=== PATIENT | male | born 1990 | race Caucasian/White ===

== ENCOUNTER 2018-05-11 03:49 | Emergency (ER) | payer OTHER, SELFPAY ==
[2018-05-11] VITALS (11 sets, daily range): BP systolic 138–147; BP diastolic 83–102; PULSE 16–112; RESP 16–20; TEMP 36.3–37.1; O2SAT 98–100; BMI 22.1
[2018-05-11 04:53] LABS: Absolute Lymphocyte Count 2.04 X10^3/ul (0.83-4.51); Absolute Neutrophil Count 3.5 X10^3/uL (2.0-7.7); Basophil# 0.01 X10^3/uL; Basophil% 0.2 % (0-1); Eosinophil# 0.03 X10^3/uL; Eosinophils% 0.5 % (0-5); Hematocrit 45.2 % (40-54); Hemoglobin 16.1 g/dl (13.0-16.5); Lymphocyte # 2.04 X10^3/ul (4.0); Lymphocyte % 32.8 % (19-41); Mean Corp Hgb Conc 35.6 g/gl (32-36); Mean Corpuscular Hgb 32.6 pg (27.0-32.0); Mean Corpuscular Volume 91.5 fL (80-94); Mean Platelet Vol. 9.9 fl (6.2-12.0); Monocyte# 0.65 X10^3/uL; Monocyte% 10.5 % (0-10); Neutrophil # 3.49 X10^3/uL (2.7-7.7); Platelet Count 273 K/mm3 (150-450); RBC Distribution Width CV 12.9 % (11.6-14.6); RBC Distribution Width SD 42.9 fl (35.1-43.9); Red Blood Count 4.94 M/mm3 (4.6-6.2); White Blood Count 6.2 K/mm3 (4.4-11.0)
[2018-05-11 05:11] LABS: POSITIVE COUNT NO; POSITIVE DIFFERENTIAL NO; POSITIVE MORPHOLOGY NO
[2018-05-11 05:29] LABS: Anion Gap 12 (5-15); BUN 6 mg/dL (7-18); BUN/Creat Ratio 7.1 RATIO (10-20); Calcium,Total 9.1 mg/dL (8.5-10.1); Chloride 100 mmol/L (98-107); Creatinine, Serum 0.85 mg/dL (0.70-1.30); EST Glomerular Filtration Rate 114 mL/min (>60); Est Glom Filt Rate - Afr Amer 138 mL/min (>60); Estimated Creatinine Clearance 133.59 ml/min; Glucose 102 mg/dL (74-106); Potassium 3.3 mmol/L (3.5-5.1); Sodium Level 136 mmol/L (136-145)
[2018-05-11 05:50] LABS: Amphetamine Urine VISTA NEGATIVE (<1000 ng/mL); Barbiturate Urine VISTA NEGATIVE (< 200 ng/mL); Benzodiazepine Urine VISTA NEGATIVE (< 200 ng/mL); Cocaine Urine VISTA NEGATIVE (< 300 ng/mL); Ecstacy Urine VISTA NEGATIVE (< 500 ng/mL); Methadone Urine VISTA NEGATIVE (< 300 ng/mL); PCP Urine VISTA NEGATIVE (< 25 ng/mL); THC Urine VISTA NEGATIVE (< 50 ng/mL); Vista UDS pH Range 6
--- NOTE | 2018-05-11 06:11 | ED.VISSUMM ---
- ER Visit Summary Date of Service: 05/11/18 Chief Complaint: Brought in by police for mental health evaluation History of Present Illness: The patient is a 27 M who is a limited informant at this time. He denies any significant past medical history. He denies any psychiatric history. He currently denies being on any medication. Reportedly per the police tonight they were called her residence. The patient was acting out. He was threatening suicide by putting a bullet in his head. They also felt he was out of touch with reality and city was talking about working for the [employer] things being classified. According to police patient's admitted to yelling about wanting to shoot himself. But the patient states that that was a cry for help. He states that he did have a prior suicide attempt years ago. Physical Examination: Well-appearing male no acute distress resting in bed. Vital signs are stable afebrile. He does not look septic or toxic. His pulse ox is 9 9% room air no distress. H EENT exam pupils round reactive light. I do not smell any alcohol. I do not see any obvious toxidromes. No facial or head trauma. Neck nontender no lymphadenopathy no meningismus. Lungs clear to auscultation bilaterally. Heart regular rhythm no murmur. Chest nontender. Abdomen soft nontender. He is moving all 4 extremities. There are no signs of trauma or prior wounds. There are no track cross. Back exam nontender. Neurologically he is awake and alert. He is answering questions. He does not appear to be completely forthcoming with information. And at times it is less than enthusiastic with participating with giving a history. Test Results: CBC normal with a white count of 6. BMP unremarkable with a potassium of 3.3. Normal creatinine and gap. Tox screen negative. Alcohol level is elevated to 24 consistent with alcohol intoxication. Emergency Department Course and Treatment: She brought in by police for abnormal behavior and possibly being suicidal. Treatment Plan: Once patient's alcohol level gets closer to being under the legal intoxication range we will have crisis evaluate patient and he will make final disposition after their evaluation. Disposition: [] Impression: Acute alcohol intoxication Acute suicidal ideation This note was generated with [employer] software. It may contain incorrect words, spelling, and punctuation that were not noted in review of the chart prior to signing ED Disposition - Plan for ED Patient: Chief Complaint: Mental Health Referrals: Yaw Lopez [Primary Care Provider] -
--- NOTE | 2018-05-11 06:12 | NURSING ---
BREAKFAST ORDERED FOR PATIENT.
--- NOTE | 2018-05-11 07:51 | ED.RN ---
counselor at bedside. assisted with gtting phone out of personal things so he can work with counselor in getting family involved. counselor remains at bedside. no further needs voiced.
[2018-05-11] MEDS: LORazepam 1 MG Tablet PO (10:58)
--- NOTE | 2018-05-11 11:00 | ED.RN ---
pt manic, anxious, paranoid. cooperative then catches a word said by someone jumps out of bed and becomes aggitated, paranoid, distrusting esculated. bargaining with staff, is attempting to deep breath calm and refocus self with significant difficulty doing so. music somewhat helpful when focuses on that. able to calm pt and address his needs at this time.
--- NOTE | 2018-05-11 11:31 | ED.RN ---
sitting in bed listening to music. dad at bedside. mother getting pt lunch per his request. no needs voiced at this time.
--- NOTE | 2018-05-11 11:51 | ED.RN ---
ETOH AND VITAL SIGNS NEED TO BE FAXED TO [facility] WHEN THEY RETURN; [facility] WILL WORK ON PLACEMENT AT THAT TIME
--- NOTE | 2018-05-11 12:34 | ED.RN ---
FAXED VITAL AND ETOH TO [facility]
--- NOTE | 2018-05-11 12:56 | EKG12_ITS ---
Test Reason : [facility] [place] Blood Pressure : / mmHG Vent. Rate : 099 BPM Atrial Rate : 099 BPM P-R Int : 128 ms QRS Dur : 086 ms QT Int : 356 ms P-R-T Axes : 070 076 063 degrees QTc Int : 456 ms Normal sinus rhythm with sinus arrhythmia Normal ECG Confirmed by MIGUEL ANGEL SINGH, GOSIA ([id number]), editor sound CHRISTOPHER MCNEIL ([id number]) on 05/14/2018 3:46:56 PM Referred By: DARIUS Confirmed By:GOSIA MICHELLE MD
[2018-05-11 13:18] LABS: Bacteria 0 SEEN /hpf (None Seen); Color, Urine Straw (Yellow); Glucose, Dipstick Normal (Normal); Ketone-Dipstick Negative (Negative); Leukocyte Esterase-Dipstick Negative /ul (Negative); Mucous, Urine 0 SEEN /hpf (<or=2+); Nitrite-Dipstick Negative (Negative); Occult Blood-Urine Negative /ul (Negative); Protein-Dipstick Negative (Negative); Red Blood Cells-Urine 0 SEEN /hpf (0-5); Squamous Epithelial Cells - UA 0 SEEN /hpf (0-5); Urine Bilirubin Dipstick Negative (Negative); Urine Clarity Clear (Clear); Urine Urobilinogen Normal (Normal); White Blood Cells 0 SEEN /hpf (0-5)
[2018-05-11 13:32] LABS: AST(SGOT) 83 U/L (15-37); Alanine Aminotransfer ALT/SGPT 91 U/L (16-61); Albumin, Serum 4.9 g/dL (3.2-5.0); Alkaline Phosphatase 95 U/L (45-117); Bilirubin, Direct 0.29 mg/dL (0.00-0.30); Globulin 3.6 g/dL (2.2-4.2); Protein, Total 8.5 g/dL (6.4-8.2)
--- NOTE | 2018-05-11 17:14 | ED.RN ---
REPORT TO [facility].
--- NOTE | 2018-05-11 17:16 | ED.RN ---
PT SKIN P/W/D, RESP EVEN AND UNLABORED, PT A7O X 3, NO DISTRESS NOTED. PT OUT OF ED WITH [facility] FOR TRANSPORT TO [facility].
== END 2018-05-11 17:26 | disposition short-term general hospital (02) ==
PROVIDERS: Emergency Medicine; Emergency Provider Emergency Medicine; Family Provider Family Medicine
DX: F10.129 Alcohol abuse with intoxication, unspecified (principal); Y90.9 Presence of alcohol in blood, level not specified; R45.851 Suicidal ideations; Z72.0 Tobacco use
CPT/HCPCS: 80048; 80076; 80307; 80320; 81001; 85025; 93005; 99284; G0480

== ENCOUNTER → 2018-08-08 09:02 | Outpatient (CLI) | payer OTHER, SELFPAY ==
[2018-08-08 11:03] LABS: Hematocrit 43.1 % (40-54); Hemoglobin 14.9 g/dl (13.0-16.5); Mean Corp Hgb Conc 34.6 g/gl (32-36); Mean Corpuscular Hgb 31.6 pg (27.0-32.0); Mean Corpuscular Volume 91.5 fL (80-94); Mean Platelet Vol. 12.2 fl (6.2-12.0); Platelet Count 173 K/mm3 (150-450); RBC Distribution Width CV 12.2 % (11.6-14.6); RBC Distribution Width SD 40.1 fl (35.1-43.9); Red Blood Count 4.71 M/mm3 (4.6-6.2); Scan Indicated on CBC? Y/N NO; White Blood Count 4.1 K/mm3 (4.4-11.0)
[2018-08-08 11:29] LABS: Valproic Acid (Depakene) Level 40 ug/mL (50-100)
[2018-08-08 11:35] LABS: ALB/GLOB Ratio 1.3 RATIO (0.9-2.4); AST(SGOT) 17 U/L (15-37); Alanine Aminotransfer ALT/SGPT 28 U/L (16-61); Albumin, Serum 3.9 g/dL (3.2-5.0); Alkaline Phosphatase 60 U/L (45-117); Anion Gap 8 (5-15); BUN 16 mg/dL (7-18); Calcium,Total 8.8 mg/dL (8.5-10.1); Chloride 107 mmol/L (98-107); Creatinine, Serum 0.89 mg/dL (0.70-1.30); EST Glomerular Filtration Rate 107 mL/min (>60); Est Glom Filt Rate - Afr Amer 130 mL/min (>60); Globulin 3.1 g/dL (2.2-4.2); Glucose 80 mg/dL (74-106); Potassium 3.9 mmol/L (3.5-5.1); Sodium Level 142 mmol/L (136-145)
== END ==
PROVIDERS: Family Provider Family Medicine; Visit Provider Registered Nurse
DX: F31.9 Bipolar disorder, unspecified (principal); Z79.899 Other long term (current) drug therapy
CPT/HCPCS: 36415; 80053; 80164; 85027

== ENCOUNTER → 2019-11-27 14:26 | Outpatient (CLI) | payer OTHER, SELFPAY ==
[2018-05-11 04:02] VITALS: BMI 22.1
[2019-11-27 14:52] LABS: Platelet Count 253 K/mm3 (150-450)
[2019-11-27 15:25] LABS: AST(SGOT) 38 U/L (15-37); Alanine Aminotransfer ALT/SGPT 66 U/L (16-61)
[2019-11-27 15:27] LABS: Valproic Acid (Depakene) Level 12 ug/mL (50-100)
== END ==
PROVIDERS: Family Provider Family Medicine; Referring Provider Registered Nurse; Visit Provider Registered Nurse
DX: Z79.899 Other long term (current) drug therapy (principal)
CPT/HCPCS: 36415; 80164; 84450; 84460; 85049

== ENCOUNTER 2020-01-02 17:42 | Emergency (ER) | payer OTHER, SELFPAY ==
[2020-01-02 17:44] VITALS: BP 158/77; PULSE 103; RESP 16; TEMP 37.2; O2SAT 97; BMI 27.5
--- NOTE | 2020-01-02 18:47 | EKG12_ITS ---
Test Reason : ANXIETY Blood Pressure : / mmHG Vent. Rate : 074 BPM Atrial Rate : 074 BPM P-R Int : 130 ms QRS Dur : 094 ms QT Int : 380 ms P-R-T Axes : 083 041 054 degrees QTc Int : 421 ms Sinus rhythm Nonspecific ST abnormality Abnormal ECG Confirmed by GERALDINE SINGH, KRISSY ([id number]), film editor supervisor CHRISTOPHER MCNEIL ([id number]) on 01/07/2020 2:54:51 PM Referred By: Confirmed By:LUCIAN HCANDLER MD
[2020-01-02 19:09] LABS: Absolute Lymphocyte Count 2.41 X10^3/uL (0.83-4.51); Absolute Neutrophil Count 4.3 X10^3/uL (2.0-7.7); Basophil# 0.02 X10^3/uL; Basophil% 0.3 % (0-1); Eosinophil# 0.06 X10^3/uL; Eosinophils% 0.8 % (0-5); Hemoglobin 15.1 g/dL (13.0-16.5); Lymphocyte # 2.41 X10^3/ul (4.0); Lymphocyte % 31.3 % (19-41); Mean Corp Hgb Conc 34.3 g/dL (32-36); Mean Corpuscular Hgb 32.3 pg (27.0-32.0); Mean Platelet Vol. 10.2 fl (6.2-12.0); Monocyte# 0.88 X10^3/uL; Monocyte% 11.4 % (0-10); NRBC Flagged by Analyzer 0 % (0-5); Neutrophil % 55.9 % (47-70); Platelet Count 239 K/mm3 (150-450); RBC Distribution Width SD 41.6 fl (35.1-43.9); Red Blood Count 4.68 M/mm3 (4.6-6.2); White Blood Count 7.7 K/mm3 (4.4-11.0)
[2020-01-02 19:30] LABS: Anion Gap 4 (5-15); BUN 10 mg/dL (7-18); BUN/Creat Ratio 11.1 RATIO (10-20); Calcium,Total 9.4 mg/dL (8.5-10.1); Chloride 107 mmol/L (98-107); EST Glomerular Filtration Rate 104 mL/min (>60); Est Glom Filt Rate - Afr Amer 126 mL/min (>60); Estimated Creatinine Clearance 127.82 ml/min; Glucose 114 mg/dL (74-106); Potassium 3.5 mmol/L (3.5-5.1); Sodium Level 141 mmol/L (136-145)
--- NOTE | 2020-01-02 19:31 | ED.RN ---
Pt shared story of hearing voices, running and hiding in a barn because people were after him. He admits to having intermittent episodes of auditory hallucination and has not talked with counselor about this. He also talked of hearing a thump on the side of the house and had concerns people were outside trying to get after him.
--- NOTE | 2020-01-02 19:36 | CM.ED ---
SOCIAL WORK INFORMANT: INFORMATION MANAGEMENT SPECIALISTDONTA REASON FOR REFERRAL: MENTAL HEALTH EVALUATION CHIEF COMPLIANT: PATIENT REPORTS HAS BEEN HAVING AUDITORY HALLUCINATIONS. PATIENT RAN AND HID IN A BARN BECAUSE HE THOUGHT PEOPLE WERE AFTER ME. PATIENT AND FAMILY REPORT LAST EVENING PATIENT HEARD A THUMP OUTSIDE AND THOUGHT SOMEONE WAS TRYING TO GET IN THE HOME. MARITAL/SOCIAL HISTORY: SINGLE LIVING SITUATION: PATIENT LIVES HOME ALONE SUPPORT/RESOURCES: PARENTS, COUNSELORAKIRA THROUGH [employer]. 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 PATIENT REPORTS WAS HOSPITALIZED AT THAT TIME. PATIENT DENIES ANY SUICIDAL OR HOMICIDAL IDEATION. PATIENT STATES FOLLOWS WITH COUNSELORAKIRA THROUGH [employer]. PATIENT SEES JA CERVANTES NP FOR MEDICATIONS. ABUSE ISSUES: PATIENT DENIES ANY HISTORY OF EMOTIONAL, PHYSICAL OR SEXUAL ABUSE. SUBSTANCE ABUSE HISTORY: PATIENT AND MOTHER REPORT LAST YEAR PATIENT WAS DRINKING PRETTY HEAVILY AND BELIEVE PATIENT WAS SELF MEDICATING. MENTAL STATUS EXAM: ORIENTATION- PATIENT A&OX3 MEMORY: FAIR APPEARANCE/GENERAL BEHAVIOR: CLEAN/APPROPRIATE MOOD/AFFECT: ELEVATED, ANXIOUS COMMUNICATION PATTERN: RESPONDS TO QUESTIONS, RAMBLING, RAPID SPEECH THOUGHT PROCESS: AUDITORY HALLUCINATIONS, PARANOID JUDGMENT: IMPAIRED BY MANIC BEHAVIOR RISK TO SELF/OTHERS: SUICIDAL- PATIENT DENIES ANY SUICIDAL IDEATION, PLAN OR INTENT. HOMICIDAL- PATIENT DENIES ANY HOMICIDAL IDEATION. ASSESSMENT: MET WITH PATIENT IN ROOM. PATIENT'S PARENTS PRESENT AND PATIENT GAVE PERMISSION FOR THIS WORKER TO SPEAK OPENLY WITH MOTHER AND FATHER IN ROOM. INTRODUCED ROLE AND REASON FOR REFERRAL. INFORMED PATIENT THIS WORKER RECEIVED UPDATE FROM NIKOS LONGO. PATIENT ADMITS TO AUDITORY HALLUCINATIONS. PATIENT AND MOTHER REPORT CONCERNS FOR PATIENT'S SAFETY. PATIENT REPORTS ON SATURDAY WAS SPEAKING WITH SOMEONE AND THOUGHT THEY HAD TOLD HIM TO GET OUT. PATIENT RAN AND HITCH HIKED TO HIS COUNSELING AGENCY AND WHEN ARRIVED DOORS WERE LOCKED. PATIENT REPORTS PARANOIA. LAST EVENING PATIENT WAS STAYED WITH HIS MOTHER AND STEP FATHER AND HEARD A THUMP OUTSIDE. PATIENT BELIEVED SOMEONE WAS TRYING TO GET IN THE HOME TO GET HIM. MOTHER DOES NOT FEEL SAFE WITH PATIENT RETURNING HOME ALONE AND FEELS PATIENT WOULD BENEFIT FROM STABILIZATION. COLLABORATION WITH DR. HANNON. PLAN FOR INPATIENT PSYCH HOSPITALIZATION. THIS WORKER TO FACILITATE PLACEMENT. PATIENT'S NURSE UPDATED. PLAN: REFERRAL FOR INPATIENT PSYCH HOSPITALIZATION.
[2020-01-02 19:57] LABS: Amphetamine Urine VISTA NEGATIVE (<1000 ng/mL); Barbiturate Urine VISTA NEGATIVE (< 200 ng/mL); Benzodiazepine Urine VISTA NEGATIVE (< 200 ng/mL); Cocaine Urine VISTA NEGATIVE (< 300 ng/mL); Ecstacy Urine VISTA NEGATIVE (< 500 ng/mL); Methadone Urine VISTA NEGATIVE (< 300 ng/mL); PCP Urine VISTA NEGATIVE (< 25 ng/mL); THC Urine VISTA NEGATIVE (< 50 ng/mL); Vista UDS pH Range 6
[2020-01-02 20:06] LABS: Alcohol, Blood (Medical)-Serum < 3.0 mg/dL
[2020-01-02 20:21] LABS: Valproic Acid (Depakene) Level 11 ug/mL (50-100)
--- NOTE | 2020-01-02 20:55 | ED.VISSUMM ---
- ER Visit Summary Date of Service: 01/02/20 Chief Complaint: Anxiety History of Present Illness: The patient is a 29 M presenting with anxiety/panic attack. Patient states that this started around 4 PM. He states that he has been under a lot of stress and recently broke up with his girlfriend. He started having heart racing and palpitations 2 hours prior to arrival. He denies chest pain. He denies suicidal or homicidal thoughts. On further discussion with family, patient has exhibited paranoid behavior recently. Yesterday he was hiding in a barn and felt people were chasing him. He has felt that he needs to drink energy drinks to stay awake and protect his family. He has a history of bipolar disorder and is on Depakote. Physical Examination: Vitals are stable. Patient is afebrile. Alert no acute distress. HEENT exam is unremarkable. Neck is supple. Lungs are clear and equal bilaterally. Heart is regular rate and rhythm. Abdomen is soft nontender nondistended. Extremities are unremarkable. Skin is warm and dry. No focal neurologic deficit. Anxious Remainder of exam is unremarkable. Emergency Department Course and Treatment: CBC, chemistries unremarkable. Alcohol and tox are negative. Depakote level 11. Troponin is negative. EKG is sinus rate of 74. Chest x-ray shows no acute process. Discussed with social work for evaluation. Disposition: Per social work Impression: Anxiety, paranoid behavior This note was generated with [employer] dictation software. It may contain incorrect words, spelling, and punctuation that were not noted in review of the chart prior to signing ED Disposition - Plan for ED Patient: Referrals: Yaw Lopez [Primary Care Provider] -
--- NOTE | 2020-01-02 20:57 | RAD_ITS ---
STUDY: X-RAY CHEST REASON FOR EXAM: Male, 29 years old. Panic attack TECHNIQUE: Frontal view of the chest COMPARISON: None. FINDINGS: The lungs are clear. There are no pleural effusions. There is no pneumothorax. The heart is normal in size. The visualized osseous structures are within normal limits. RAD/Chest 1 View (Portable) IMPRESSION: No acute thoracic pathology. Electronically Signed: Nicholas Borges, at 21:20 EST Tel , Service support ,
[2020-01-02 21:18] VITALS: BP 115/64; PULSE 78; RESP 16; O2SAT 98
--- NOTE | 2020-01-02 21:29 | CM.ED ---
SOCIAL WORK PATIENT ACCEPTED TO [facility] BY DR. NUGENT TO THE [facility] UNIT. NURSE TO CALL REPORT TO . STAFF, PATIENT AND FAMILY UPDATED. COPY OF PINK SLIP FAXED TO [facility] PER REQUEST. AIRPLANE ELECTRICAL REPAIRER TO SET UP TRANSPORT. PLAN: [facility]. MICHELLE COOPER, DESIGN CHECKER.
[2020-01-02 21:38] VITALS: BP 115/64; PULSE 78; RESP 18; O2SAT 98
[2020-01-02 21:56] VITALS: BP 115/64
== END 2020-01-02 22:31 ==
LOC: ED 19:40
PROVIDERS: Emergency Provider Emergency Medicine
DX: F22 Delusional disorders (principal); F41.9 Anxiety disorder, unspecified; F31.9 Bipolar disorder, unspecified; Z79.899 Other long term (current) drug therapy; Z87.891 Personal history of nicotine dependence
CPT/HCPCS: 71045; 80048; 80164; 80307; 80320; 84484; 85025; 93005; 99283; A4216; G0480

== ENCOUNTER 2020-01-15 13:57 | Emergency (ER) | payer OTHER, SELFPAY ==
[2020-01-15 13:59] VITALS: BP 168/89; PULSE 119; RESP 18; TEMP 36.6; O2SAT 100; BMI 29.2
[2020-01-15] MEDS: 0.9% Normal Saline 1,000 ML 1000 ML IV (15:55)
[2020-01-15 15:59] VITALS: BP 158/96; PULSE 105; RESP 18; O2SAT 100
[2020-01-15 16:09] LABS: Absolute Lymphocyte Count 2.24 X10^3/uL (0.83-4.51); Absolute Neutrophil Count 4.7 X10^3/uL (2.0-7.7); Basophil# 0.03 X10^3/uL; Basophil% 0.4 % (0-1); Eosinophils% 1.3 % (0-5); Hematocrit 44.3 % (40-54); Hemoglobin 15.2 g/dL (13.0-16.5); Lymphocyte # 2.24 X10^3/ul (4.0); Lymphocyte % 28.6 % (19-41); Mean Corp Hgb Conc 34.3 g/dL (32-36); Mean Corpuscular Hgb 32.2 pg (27.0-32.0); Mean Corpuscular Volume 93.9 fL (80-94); Mean Platelet Vol. 10.2 fl (6.2-12.0); Monocyte% 10.2 % (0-10); NRBC Flagged by Analyzer 0 % (0-5); Neutrophil # 4.65 X10^3/uL (2.7-7.7); Neutrophil % 59.4 % (47-70); Platelet Count 273 K/mm3 (150-450); RBC Distribution Width CV 12.1 % (11.6-14.6); RBC Distribution Width SD 42.1 fl (35.1-43.9); Red Blood Count 4.72 M/mm3 (4.6-6.2); White Blood Count 7.8 K/mm3 (4.4-11.0)
[2020-01-15 16:14] LABS: Anion Gap 5 (5-15); BUN 16 mg/dL (7-18); BUN/Creat Ratio 16.3 RATIO (10-20); Calcium,Total 8.9 mg/dL (8.5-10.1); Chloride 109 mmol/L (98-107); Creatinine, Serum 0.98 mg/dL (0.70-1.30); EST Glomerular Filtration Rate 95 mL/min (>60); Est Glom Filt Rate - Afr Amer 115 mL/min (>60); Estimated Creatinine Clearance 117.39 ml/min; Glucose 98 mg/dL (74-106); Potassium 3.6 mmol/L (3.5-5.1); Sodium Level 142 mmol/L (136-145)
[2020-01-15 17:00] VITALS: BP 145/117; PULSE 95; RESP 18; TEMP 37.1; O2SAT 98
--- NOTE | 2020-01-15 17:11 | ED.VISSUMM ---
- ER Visit Summary Date of Service: 01/15/20 Chief Complaint: Out of control History of Present Illness: The patient is a 29 M history of bipolar disorder. Brought in by his family. Patient is been binging on alcohol and energy drinks recently. He is not been taking his Depakote as prescribed. He was sent in today by his psychiatrist to be evaluated. I spoke to his parents. Initially his mom felt that if he went home with them he may be okay. He was at home with them for some time recently started living on his own again is running all current problems. I also spoke to his father who does not feel that he would be okay at home at all. vice president of consulting services also evaluate the patient. Physical Examination: Young male no acute distress vital signs stable afebrile. H EENT exam unremarkable. No signs of trauma. Pupils round reactive light. No facial droop. Neck nontender no signs of trauma. No lymphadenopathy. Lungs clear to auscultation bilaterally. Heart tachycardic rate about 110 no murmur. Chest were nontender. Abdomen soft nontender. Extremities moves all 4. Neurovascular intact. No trauma. No deformity. Equal symmetrical 5-5 channel manager strength. Dorsi plantarflexion intact. Back nontender. Neurologically is awake and alert. He is bipolar and appears to be manic. But currently he is not violent or combative. Test Results: CBC normal white count of 7. Hemoglobin 15. Electrolytes unremarkable normal creatinine and gap. Tox screen negative. Alcohol level negative. Valproic acid level in the normal range at 61. Emergency Department Course and Treatment: Patient is resting comfortably with family in the room. vice president of consulting services has been involved. We will try to get him placed. Treatment Plan: [] Disposition: Transfer to a psychiatric hospital for admission Impression: Acute exacerbation of bipolar disorder (manic phase) Binge drinking This note was generated with [employer] dictation software. It may contain incorrect words, spelling, and punctuation that were not noted in review of the chart prior to signing ED Disposition - Plan for ED Patient: Referrals: Yaw Lopez [Primary Care Provider] -
[2020-01-15 17:49] LABS: Anion Gap 4 (5-15); BUN 16 mg/dL (7-18); BUN/Creat Ratio 17.1 RATIO (10-20); Calcium,Total 8.5 mg/dL (8.5-10.1); Chloride 107 mmol/L (98-107); Creatinine, Serum 0.94 mg/dL (0.70-1.30); EST Glomerular Filtration Rate 100 mL/min (>60); Est Glom Filt Rate - Afr Amer 121 mL/min (>60); Estimated Creatinine Clearance 122.38 ml/min; Glucose 93 mg/dL (74-106); Potassium 3.9 mmol/L (3.5-5.1); Sodium Level 140 mmol/L (136-145)
--- NOTE | 2020-01-15 18:00 | CM.ED ---
SOCIAL WORK ASSESSMENT CHIEF COMPLIANT: PATIENT PRESENTS TO EMERGENCY DEPARTMENT FROM COUNSELORS OFFICE WITH HIS MOTHER. PATIENT WITH FLIGHT OF IDEAS, MANIC AND PARANOID BEHAVIORS. MARITAL STATUS: LIVING SITUATION: PATIENT LIVES HOME ALONE. PATIENT HAS BEEN STAYING WITH FAMILY OFF AND ON SINCE DISCHARGE FROM [facility]. SUPPORT/RESOURCES: PARENTS, JA CERVANTES NP AND COUNSELOR, AKIRA THROUGH [employer]. 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 TREATMENT/HISTORY: PATIENT HAS BEEN DIAGNOSED WITH BIPOLAR DISORDER IN APRIL 2018. PATIENT REPORTS WAS HOSPITALIZED AT THAT TIME AT [facility]. MOTHER AND PATIENT REPORT THAT HOSPITALIZATION WAS NOT BENEFICIAL FOR PATIENT. PATIENT WAS HOSPITALIZED ON 01/02/2020-01/08/2020 AT [facility]. PATIENT AND PARENTS REPORT SINCE PATIENT HAS BEEN DISCHARGED HAS NOT BEEN TAKING MEDICATIONS PRESCRIBED, SELF MEDICATING WITH ALCOHOL AND ENERGY DRINKS, EXHIBITING MANIC AND PARANOID BEHAVIORS. FAMILY CONCERNED WITH PATIENT'S ABILITY TO MAINTAIN SAFETY AND CARE FOR SELF. SUBSTANCE ABUSE HISTORY: PATIENT HAS BEEN SELF MEDICATING WITH ALCOHOL. MENTAL STATUS EXAM: ORIENTATION- A&OX3 MEMORY- FAIR APPEARANCE/GENERAL BEHAVIOR- CLEAN/APPROPRIATE, AGITATED MOOD/AFFECT- ELEVATED, ANXIOUS COMMUNICATION PATTERN- RESPONDS TO QUESTIONS, RAPID AND RAMBLING SPEECH THOUGHT PROCESS- PARANOID RISK TO SELF/OTHERS: PATIENT DENIES ANY SUICIDAL OR HOMICIDAL IDEATIONS. ASSESSMENT: MET WITH PATIENT AND FAMILY IN ROOM. PATIENT'S MOTHER AND FATHER PRESENT. PATIENT GAVE PERMISSION FOR THIS WORKER TO SPEAK OPENLY WITH FAMILY PRESENT. INTRODUCED ROLE AND REASON FOR REFERRAL. PATIENT KNOWN TO THIS WORKER FROM PREVIOUS VISIT ON 01/02/2020. PATIENT'S DISPOSITION FROM EMERGENCY DEPARTMENT ON 01/02/2020 WAS INPATIENT PSYCH HOSPITALIZATION AT [facility]. SINCE DISCHARGE FROM [facility], PATIENT HAS BEEN FOLLOWING WITH COUNSELOR THROUGH [employer], AKIRA. MOTHER STATES PATIENT WAS SEEN ON SATURDAY OF THIS WEEK AND INFORMED COULD RETURN TO WORK. MOTHER AND PATIENT REPORT PATIENT ATTENDED WORK SATURDAY AND SATURDAY AND PATIENT STATES I'VE GOTTEN EXCITED. PATIENT STATES SOME CALL IT MANIC, I SAY EXCITED. PATIENT REPORTS WAS MOVED TO HIS OWN OFFICE BECAUSE I TALK TO MYSELF. THROUGHOUT ASSESSMENT PATIENT WITH FLIGHT OF IDEAS AND RAPID SPEECH. INQUIRED ABOUT USE OF ALCOHOL AND PATIENT ADMITTED TO USING ALCOHOL AND TAKING MEDICATIONS. DISCUSSED CONCERNS WITH MIXING ALCOHOL WITH MEDICATIONS. PATIENT STATES ALSO DRANK 5 ENERGY DRINKS. MOTHER REPORTS PATIENT WAS NOT TAKING MEDICATIONS CORRECTLY AND THE OTHER NIGHT PATIENT TOOK ADDITIONAL MEDICATION ALONG WITH 2 SHOTS OF ALCOHOL. PATIENT BECAME ARGUMENTATIVE WITH MOTHER. RECEIVED PERMISSION FROM PATIENT TO SPEAK WITH MOTHER AND FATHER OUTSIDE OF ROOM. PER PATIENT'S MOTHER AND FATHER, PATIENT WITH MANIC AND PARANOID BEHAVIOR THAT HAS BEEN ESCALATING. FATHER REPORTS WAS AT THE PATIENT'S HOME THE OTHER NIGHT AND HE HAD 2 CHAIRS UNDER THE [place] OF ONE ENTRANCE DOOR AND A WEIGHT IN FRONT OF HIS BACK DOOR. FATHER STATES PATIENT HAD CANS OF BEER, VODKA BOTTLE AND CAFFEINATED DRINKS THROUGHOUT HOME. MOTHER REPORTS WHILE PATIENT WAS STAYING WITH HER HE HAD TURNED ON THE STOVE, PUT A PAINTER ON THE STOVE AND LEFT IT THERE. MOTHER STATES CAME INTO KITCHEN AND STOVE WAS SMOKING. MOTHER AND FATHER VOICE CONCERNS WITH PATIENT'S ABILITY TO MAINTAIN HIS SAFETY AND CARE FOR SELF. COLLABORATION WITH DR. AGUIRRE. PATIENT REQUIRES INPATIENT HOSPITALIZATION FOR STABILIZATION. THIS WORKER TO FACILITATE PLACEMENT. PLAN: REFERRAL FOR INPATIENT PSYCH HOSPITALIZATION Kai TREJO MSW, MAINTENANCE MACHINIST.
[2020-01-15 18:17] LABS: Amphetamine Urine VISTA NEGATIVE (<1000 ng/mL); Barbiturate Urine VISTA NEGATIVE (< 200 ng/mL); Benzodiazepine Urine VISTA NEGATIVE (< 200 ng/mL); Cocaine Urine VISTA NEGATIVE (< 300 ng/mL); Ecstacy Urine VISTA NEGATIVE (< 500 ng/mL); Methadone Urine VISTA NEGATIVE (< 300 ng/mL); PCP Urine VISTA NEGATIVE (< 25 ng/mL); THC Urine VISTA NEGATIVE (< 50 ng/mL); Vista UDS pH Range 6
[2020-01-15 18:17] LABS: Alcohol, Blood (Medical)-Serum < 3.0 mg/dL
[2020-01-15 18:45] LABS: Valproic Acid (Depakene) Level 61 ug/mL (50-100)
[2020-01-15 19:00] VITALS: BP 160/81; PULSE 100; RESP 18; TEMP 37.2; O2SAT 100
--- NOTE | 2020-01-15 19:32 | CM.ED ---
SOCIAL WORK REFERRAL HAS BEEN CALLED AND FAXED TO [facility]. AWAITING ACCEPTANCE AT THIS TIME. Kai TREJO, SUPERVISOR PATCHING, SALES FORCE ADMINISTRATOR.
--- NOTE | 2020-01-15 19:57 | CM.ED ---
SOCIAL WORK PATIENT ACCEPTED TO [facility] BY DR. PIZARRO TO THE [facility] UNIT. NURSE TO CALL REPORT, SPLASH LINE OPERATOR TO SET UP TRANSPORT. PATIENT AND FAMILY UPDATED. Kai TREJO, PLANT WIRE CHIEF, RN CLINICAL RESEARCH.
--- NOTE | 2020-01-15 20:30 | CM.ED ---
SOCIAL WORK PATIENT SIGNED RELEASE OF INFORMATION FOR [employer]. PATIENT INQUIRING ABOUT PINK SLIP AND REQUESTED TO SPEAK WITH OFFICER TARUN. OFFICER TARUN HASKINS. Kai TREJO, COUNTY PROGRAM TECHNICIAN, BAND ATTACHER.
[2020-01-15 21:00] VITALS: BP 150/88; PULSE 110; RESP 18; TEMP 37.3; O2SAT 100
== END 2020-01-15 21:56 ==
PROVIDERS: Emergency Provider Emergency Medicine
DX: F30.9 Manic episode, unspecified (principal); Z79.899 Other long term (current) drug therapy; F10.99 Alcohol use, unspecified with unspecified alcohol-induced disorder; Z72.0 Tobacco use
CPT/HCPCS: 80048; 80164; 80307; 80320; 85025; 96360; 99284; J7030; A4216; G0480

== ENCOUNTER 2020-02-01 09:00 | Outpatient (RCR) | payer OTHER, SELFPAY ==
--- NOTE | 2020-02-01 10:05 | BH.SGPN.GN ---
Behaviors/Verbalizations/Mental Status: []Pt eye contact good, casually dressed, motor activity appropriate, speech normal rate and tone, mood euthymic, congruent affect, thoughts linear and intact, no evidence of delusions or hallucinations. Inappropriate laughter at times. Client Response/Progress/Benefit: []Pt was an engaged participant throughout group session AEB pt contributing thoughts during discussion, listening attentively and taking notes throughout. Pt seemed to connect with group comments that we can control how we cope with stressors. Group identified unhealthy coping skills which included: substance use, avoidance, sleep, isolation, and suicidal behavior. Group worked together to identify potential barriers of using healthy coping which included: no motivation, apathy, comfort zone, habitual, learned behaviors and fear. Pt stated a potential consequence of using unhealthy coping could be being disconnected from supports. Pt seemed to benefit from increased awareness of importance of increasing healthy coping skills and consequences of utilizing unhealthy coping skills. Pt to continue IOP level of care to stabilize moods, increase self-awareness and prevent decompensation. Narrative Note: []
--- NOTE | 2020-02-01 11:20 | BH.SGPN.GN ---
Behaviors/Verbalizations/Mental Status: [] Client alert and oriented, casually dressed and groomed. Eye contact good. Motor activity appropriate. Speech often more pressured and at times tangential. Affect congruent, mood euthymic. Thoughts linear, logical, no signs of hallucinations or delusions. Client Response/Progress/Benefit: []Client first day in IOP program. He responded well to session, taking notes and engaged during discussion. At times struggling with off-topic comments though did well to respond to redirection. Client appeared to connect with the activity from second group and listened as the group worked to identify benefits of having a strong foundation of internal and external coping skills. Client actively contributing as the group discussed the different categories of coping skills which included distraction, emotional release, grounding, self-love, and thought challenging. Client acknowledged the importance to having a variety of coping skills. Client created a coping skills ?menu? for the five categories of coping skills. Provided examples of strategies he personally uses for healthy distraction. Client expressed wanting to focus on improving more actively engaging in consistent application of healthy emotional release skills this week. Client appeared to benefit from increasing repertoire of healthy coping skills. Will continue IOP tx to prevent decompensation, improve mood stability, and promote healthy change behaviors. Narrative Note: []
--- NOTE | 2020-02-03 09:45 | BH.NA_ITS ---
Physical Data - Vital Signs Pulse Rate: 96 Respiratory Rate: 16 Blood Pressure: 126/80 - Height/Weight Height: 1.82 m Weight:: 95.254 kg Weight in Pounds: 210.0 lbs Current Medication Compliance - Medication Compliance Do you take your medication as prescribed?: Yes Do you need assistance with taking medication?: No Have you had side effects from medication?: No Nutritional History - Appetite Nutritional Instructions:: If client shows signs of a swallowing problem, weight change of 10 pounds or more in the last month, or is on a diabetic diet, the physician will review and request a dietitian consult, as appropriate. All unintentional weight loss will be referred to the physician for decision on need for dietitian consult. Describe your appetite:: Good Have you noticed a change in your eating habits lately?: No Functional Assessment - Sleep Pattern Describe any problems with sleeping: Client states his sleep varies, states he does not have a problem falling asleep at night. - Activities Comments:: client taping hands on legs during assessment Sensory/Communication Assess - Communication Problems Do you have difficulty understanding what people are saying?: No What is your primary language?: French Medical Problems/History - Pain Assessment Do you have acute or chronic pain?: No Surgical History - Surgical History Have you had any surgeries? If so, list type and date:: No Substance Abuse - Substance Abuse Please describe substance abuse in the last 30 days:: Client states since last hospitalization at [facility] where he was discharged 01/25/20, he has had 1 beer or less a day. When asked about alcohol use prior to hospitalizations, client states I pled the 5th on that. Client states he is an everyday tobacco smoker, about 6 cigarettes per day and plans to cut back. Client denies substance abuse. Client goes into long detail about discussing caffiene use with his counselor since his hospitalization and how they came to an understanding that he should drink less than 1 beer per day and should not drink everyday, and that at max he will drink 1 energy drink or less a day. Mental Status Summary - Mental Status Significant Findings/Observations on Appearance and Mood:: Client is alert and oriented x 4. Client is casually groomed. Client is cooperative during assessment, makes eye contact with conversation. Client is slightly hyperactive, taping arms on legs during conversation. Client's speech is coherent, but slightly rapid. Client appears anxious during assessment. Client makes loose associations during conversation, talking at length about things that do not pertain to what was asked. Client with fair attention. Client denies delusions or hallcuinations. Discussed how he has had delusions/hallcuinations in the past with drew, but states he has noticed a huge improvement since being hospitalized and taking medications. Client denies SI. Suicide Assessment - Suicidal Ideation Are you currently or have you been suicidal in the past?: No Suicidal Intentional Rating Scale (SIRS): No suicidal thoughts (past or present) Physician Notification: If Active suicidal thoughts/Will not contract for safety is checked, contact physician and document in the Physician Notification section below. Past Psychiatric History - Treatment Hx Past Psychiatric Medications:: states he has been on previous medication for bipolar that made me too tired and a couch potato but does not recall what these medications were. Age of first mental health symptoms: Client was diagnosed with bipolar in April 2018 and was hospitalized at [facility]. Describe (age, circumstance, etc) any past hospitalizations: Client was hospitalized at [facility] in April 2018 when diagnosed as bipolar. Client recently hospitalized at [facility] 01/02/2020 for drew, and again hospitalized at [facility] for drew in late December 2019. He was discharged 01/25/2020. Current providers for mental health treatment (counselor, psychiatrist, case resource manager, etc.): [facility] for therapy, [facility] Ness, [facility] for medications at [facility]. Fall Risk Assessment - Age Age: Less than 60 - Mental Status Mental Status: Willing & able to ask for assistance when needed - Physical Status Physical Status: No problems - Impairments Impairments: None - Elimination Elimination: Continent AND independent - Gait or Balance Gait or Balance: Walks independently - Hx of Falls History of falls in the past 6 months: No known history - Medications/Substances Psychotropics:: Mood stabilizers, Antihistamines (e.g. Benadryl) Medications/substances used within the past 24 hours or ordered to administer: 1-2 of the medications/substances listed above - Total Score Total Points:: 1 RN Summary of Impressions - Impressions Recommendations: Include psychiatric and medical issues, treatment planning recommendations, and discharge planning needs. Impressions: Psychiatric Issues: bipolar disorder, most recent episode manic, severe with psychosis - Level of Care How do the client's current symptoms and functional deficits support need for this level of care?: Client was hospitalized in early December 2019 at [facility] for symptoms of bipolar. Client was having auditory hallucinations, implusive behavior. Client was again brought to the emergency department by his family in late December 2019 with symptoms of bipolar, manic behavior. Client was hospitalized again at [facility] until 01/25/2020. Client reports since his last hospitalization that he sees improvement in his behavior and denies hallucinations at this time. Client appears to have somewhat manic behavior during assessment, talking rapidly at times, making loose associations and talking at length about things that do not pertain to what was asked of him. Client has large amount of belongings with him, including many small items in his pockets, headphones, and 2 backpacks. 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 Client reports feelings of anxiety at times, denies SI. IOP will promote gains and prevent further decompnsation while providing social support and skills training.
[2020-02-03 10:30] VITALS: BP 126/80; PULSE 96; RESP 16
--- NOTE | 2020-02-03 11:50 | BH.COMM ---
Communication Note - Communication with Client Communication Note: [facility] called at this time to discuss client's Depakote order, stating ER tablets could not be split. Discussed client's dosing with Dr. Peguero at this time, Dr. Peguero states to have client take (4) 500mg tablets of Depakote ER daily at bedtime to make daily dose 2000mg. This nurse called [facility] at this time to update and will update client on dose increase.
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
--- NOTE | 2020-02-03 12:20 | BH.DR.ITP ---
Initial Treatment Plan - Patient Information Visit Information: ADMISSION DATE: EXPECTED LOS: 4-6 weeks - Problems/Symptoms Problem #1:: Zara Symptom:: Grandiosity, hypertalkative, somewhat tangential at times, excessive use of humor Problem #2:: emotional sadness due to leaving him in 2016
--- NOTE | 2020-02-03 14:28 | BH.PSA ---
Source of Information - Presenting Problems/Circumstances Problems, Referral Source, Mental Status, Client: Referral by [facility] after recent admission due to drew and paranoia. Pt has had two psychiatric admissions in 01/14 due to drew and psychosis. MH symptoms interfering with functioning (social, work, and familial). Hx of non-compliance with medications. Affect is labile. Mood is euthymic. Racing thoughts. Tangential. Psychiatric Presentation - Psych Issues & Need for Admission Psychiatric Issues:: Bipolar. Depression. Lonliness. Addiction (Alcohol and Energy Drinks). Past Psychiatric History - MH Treatment Hx Treatment History: 2018- [facility]. 2018- started seeing psychiatrist and therapist at [facility]. 01/02/2020- Admitted to [facility] for drew and psychosis. 01/15/2020- re-admitted to [facility] for drew and psychosis First hospitalization:: [facility]- 2017 Most recent hospitalization:: [facility] 01/15/20-01/25/20 Medication Trials:: Yes ECT Therapy:: No Age of first mental health symptoms: 2016- after divorce from . Depression. Grief Describe (age, circumstance, etc) any past hospitalizations: Drew with paranoid delusions. (Blocking doors with chairs). Disorganized thoughts and behaviors. Leaving pots on the stove. House is extremely dirty. Current providers for mental health treatment (counselor, psychiatrist, case management manager, etc.): Vibha Ness- Psychiatrist, [facility]. Carina Ellis- therapist, [facility] Development & Family of Origin - Childhood Significant Childhood Events: Denies. - Family Who currently lives in your home?: Currently lives alone Describe family composition:: Pt is close with mother his biological mother, step-father, and his biological father. Has a half-brother with whom he works with. - Family History Family Hx of Psychiatric or AOD Problems: denies Ethnicity - Culture Do you identify yourself with any particular cultural, ethnic background, or community?: No - Sexuality Sexual Orientation: Heterosexual Spirituality - Adventist Do you currently identify with any organized congregation?: None - Beliefs Is there a particular form of support from this community you can use for your recovery?: No Mental Status - Memory Recent Memory: Fair Remote Memory: Fair - Concentration Concentration: Poor - Eye Contact Eye Contact: Scans - Speech Speech: Rapid, Repetitious, Tangential, Pressured - Thought Process Thought Process: Loose association, Flight of ideas Insight: Poor Judgment: Poor Delusions: Grandiose - Believes that he is ready to go back to work Behavior: Anxious - Orientation Orientation: Time, Person, Place, Situation - Appearance Appearance: Appropriate - Mood Mood: Euphoric - Affect Affect: Labile Suicide Assessment - Suicidal Ideation Have you ever felt like hurting yourself?: No Were you using ETOH/drugs at the time?: No Suicidal Intentional Rating Scale (SIRS): No suicidal thoughts (past or present) Physician Notification: If Active suicidal thoughts/Will not contract for safety is checked, contact physician and document in the Physician Notification section below. Violent Behavior/Abuse History - Homicidal Ideation Do you have any homicidal thoughts? If so, explain:: No Is there a known potential victim? If yes, who:: No - Abuse Have you ever been abused?: No - Life Events Describe significant life events: 4 years ago. Recently broke up with GF of 1-2 months. On FMLA from work. - Safety Do you ever feel threatened in your home? If yes, describe:: No Substance Use - Substance Substance Use Type: Alcohol, Caffeine - Specific Drugs What specific drugs have you used?: Alcohol, Cannabis, and Caffiene - Extent of Use What quantity of substances have you used?: Alcohol- Peak use was 6 months in 2019 when he was drinking 12 pack per day. Cannabis- has not used in several years. Caffiene- Hx of consuming several energy drinks per day. Prior to psych admission on 01/15/20 he had 7 energy drinks while at work. - Last Usage What is the date and situation you last used?: Energy drinks- daily. Unknown how much. Minimizes. I have a sip. Alcohol- 1-2 drinks daily, beer and vodka - Withdrawal History Withdrawal History: Other (See comments) - Uses alcohol and energy drinks to self-medicate. Notes when depressed will drink energy drinks to flip a swtich to drew or happiness. - IV Substance Use Do you have a history of IV use?: denies Leisure/Social Activities - Interests What do you enjoy or might be interested in learning about?: Some grandiose thinking as he does not beleive he needs to learn much in regards to mental health. 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 If yes, describe:: No - Court Orders Have you had any past court orders for psychiatric treatment?: No Do you have a present court order for psychiatric treatment?: No Problem Checklist - Current Problem Areas Problem List: Depressed mood/sad, Inattention, Impulsivity, Mood swings/hyperactivity, Substance use, Sleep problems Discharge Planning Needs - Anticipated Follow-Up Mental Health Center (Name/Phone Number):: [facility] Private Therapist/Psychiatrist:: Vibha Ness- psychiatrist Other (to be determined): Carina Ellis- therapist Primary Care Physician: Yaw Lopez Family and Caregiver Contacts:: Yohan Herzog- father. Cecelia Padilla- mother. Paddy Padilla- half-brother Release of Information Signed:: Yes Sericulturist's Assessment - Client's Needs What are the client's feelings about the program?: Pt is ambivalent about the program. Believes that he needs to do this to return to work What are the client's goals?: Goals is to learn skills and return to work. What are the client's strengths?: intelligent, outgoing Diagnoses - Diagnoses Diagnosis #1:: Bipolar, F31.2 Interpretive Summary - Interpretive Summary Interpretive Summary: Pt is a 29 year old male with a hx of Bipolar. Hx of 3 previous psychiatric admissions with most recent at [facility] from 01/15/20-01/25/20 due to drew, paranoia, and inability to function at home/work. Per collateral from ER notes and H/P from psych admission family reported that pt was non-compliant with medications and was abusing alcohol and energy drinks. Prior to admission family noted significant paranoia and bizare behaviors. Two hospitalizations for drew/delusions in 12/2019. Diagnosed with Bipolar in 04/2018. Pt reported improved functioning since psych discharge on 01/25/20. Reports medication compliance. During intial intake pt presented as manic AEB tangential thoughts, FOI, rapid speech, and difficulty staying on topic. Extremely focused on returning to work, however did have insight that he was not stable enough to return to work. Struggling with accepting Bipolar dx, however does admit to having drew. Minimizes the impact of drew. 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 When manic pt is paranoid, disorganized, experiences hallucinations, and has decreased sleep. He denies issues with alcohol and energy drink abuse. Treatment Plan Recommendations - Recommendations Guidelines: Special needs identified to be included in the development of an individualized treatment plan regarding past psychiatric history and treatment, developmental events, family relationships/events/culture, past and/or current educational, occupational, social, and residential experience, and legal status. Recommendations:: Due to 2 psychiatric admissions in 4 weeks, hx of non-compliance with medications, MH symptoms impacting functioning, and limited insight into Bipolar pt was recommended for [facility] level of care. Pt declined stating numerous reasons. Was agreeable with IOP 4x weekly. Will monitor pt in IOP and if he begins to decompensation will increase level of care.
--- NOTE | 2020-02-03 14:28 | BH.MTP ---
Master Treatment Plan - Patient Information Program Physician:: Ramya Peguero Primary Therapist:: Urban Culver - Psychiatric Diagnoses Psychiatric Diagnoses:: Bipolar Diagnosis Code(s):: F31.2 - Estimated LOS Estimated LOS (in weeks):: 6 Problem/Goal #1 - Problem/Goal #1 Stated Goal:: Client will increase mood stability and achieve controlled behavior due to Bipolar I through Intensive Outpatient Services. Description of Barriers: Hx of non-compliance with medications and treatment. Pt struggles with letting go of benefits to zara. Functional Impact: Currently MH symptoms are interfering with his abilty to function at work, in social setting, and with his family. - Objectives Objective #1 Stated Objective: Client will identify 2-3 triggers that resulted in an elevated mood and take steps to address these triggers. Interventions: Through individual and group counseling will help client develop insight into mental health triggers as well as ways to address these triggers. Discharge Criteria: Client will have achieved this objective when able to verbalize at least 2 triggers that result in an elevated mood and ways to mitagate these triggers. Target Date: 03/14/20 Review Date: 02/29/20 Objective #2 Stated Objective: Client will complete a journal of sleep patterns and discuss history of sleep pattern, bedtime routine, nutritional habits including stimulant use, napping practice, and actual sleep time. Will also track medications used and times. Interventions: Will create format for journal with patient and hold pt accountable. Discharge Criteria: Pt will be able to show consistent and stable sleep and medication compliance. Target Date: 03/14/20 Review Date: 02/29/20 Problem/Goal #2 - Problem/Goal #2 Stated Goal:: Client will decrease depressive symptoms and ruminating thoughts related to past relationhips and actions as well as increase healthy coping skills through IOP services. Description of Barriers: Zara is impacting ability to rationally process thoughts and emotions. Functional Impact: Impacts self-esteem and his confidence in seeking relationships. He utilizes unhealthy coping strategies (energy drinks) to manage depression. - Objectives Objective #1 Stated Objective: Client will identify 2 triggers and 2 coping skills to use in increased times of depression and rumination Interventions: Through individual and group counseling will help client apply group concepts to help client better understand self, as well as cope with everyday challenges and struggles. Therapist will also help client be more articulate and expressive so can communicate with family and friends when decompensating. Discharge Criteria: Client will have completed this goal when better able to cope with stressors, and identify 2 triggers to increased mental health symptoms. Target Date: 03/14/20 Review Date: 01/29/20
--- NOTE | 2020-02-03 14:28 | BH.MDN ---
Multi-Disciplinary Note - Note 60-min Individual Time Started:: 11:15 Date: 02/03/20 Purpose of session/treatment goals addressed:: Reviewed current symptoms and progress in IOP. Began to develop treatment plan goals. Eye Contact:: Good Motor Activity:: Restless Appearance:: Casual Speech:: Pressured, Tangential Mood:: Euthymic Affect:: Labile Thoughts:: Logical, Racing, Flight of ideas Staff Interventions:: Challenged pt on perceptions of his drew. Pointed out tangential thoughts and discussed his comfort level of increasing his awareness of these symptoms. Treatment planning. Client Response:: Pt met with psychiatrist and nurse prior to session. Briefly discussed psychiatrist recommendations to increase his Depakote. Pt continues to have rapid/pressured speech, FOI, and is tangential, however is more easily re-directed. He described his levels of drew which are; baseline, little excited, amped up, manic, and off the handle. He beleives that he is currently in the amped up level and wants to be in the little excited range. Receptive to discussion on re-directing and pointing out when he is off topic. Limited insight into how he presents himself. When asked if he can read social cues to end conversation he states definately however has not been able to read numerous cues from staff/peers. Excessive talking and poor social cue awareness occured at work as well which led to being switched to office prior to admission. After talking he agreed that he may have freaked some co-workers out with his drew. Trigger to first hospitalization he reports was related to GF of one month breaking up with him via text. Notes that he can be too intense at times which may have impacted the relationship. His goals for treatment include to prove to myself that I can can do this. Referencing returning to work and being stable. Risks/Concerns:: Denies any suicidal ideations, plan, or intent. Progress Toward Goals/Plan:: Limited progress noted as this is pt's 2nd day in IOP. Reports that he is medication compliant. Denies alcohol use or excessive use of energy drinks. Continues to present with manic type symptoms and is not stable enought to return to work. Limited insight into how his drew presents to others and impacts his functioning. He does appears motivated and is overal very pleasant and cooperative. Denies any impulsivity, trouble sleeping, excessive spending, or psychosis. Will continue in IOP to prevent decompensation, improve functingin to return to work, and to stabize mood.
--- NOTE | 2020-02-04 09:10 | BH.SGPN.GN ---
Behaviors/Verbalizations/Mental Status: [] Eye contact is good. Motor activity is appropriate. Appearance is causal. Speech is rapid.pressured. Mood is euthymic. Affect is full. Thoughts are tangential. No evidence of psychosis. Reviewed daily check in sheet and no reports of suicidal ideations or intent. Client Response/Progress/Benefit: [] Pt participated at times during the group discussion. Needed redirected to stay on topic by therapist. He talked about a great deal of things that he needs to do to stay on track however was very vague. Talked about being about to keep himself mentally stimulated and to chill which seem to contract each-other. Talked about the highs and lows of this past few weeks and being unstable. Smiling. Pt notes progress however continues to display hypomania. No progress noted by therapist. He reports that he is medication compliant and is sleeping well. Benefited from group support, encouragement, and feedback. Will continue in IOP to stabilize and monitor mood. Narrative Note: []
--- NOTE | 2020-02-04 10:13 | BH.SGPN.GN ---
Behaviors/Verbalizations/Mental Status: []Client alert and oriented, casually dressed and groomed. Eye contact good, at times intense. Motor activity appropriate. Speech pressured, tangential. Affect congruent, mood euthymic. Thoughts linear, logical, no signs of hallucinations or delusions. Client Response/Progress/Benefit: []Client receptive of session, attentive in discussion and activity. Client discussed the quote and provided input that ?lack of communication is detrimental to managing emotions?. Provided an example of needing to regulate emotions while getting a new phone. Client often struggled to remain on topic and would lose train of thought when speaking, though was easily redirected. Client helped group identify barriers that impact one?s ability to communicate when emotions are high. These barriers included; increased stress, fear of confrontation or conflict, making assumptions, and distorted thoughts. Expressed that unmanaged emotions can result in jumping to conclusions and decrease ability to communicate effectively. Client participated in the activity and did well to manage emotions throughout. Client appeared to benefit from increasing awareness of how emotions can impact communication and practicing in the moment coping skills. Progress noted as client has been demonstrating engagement in treatment setting and appears more capable of maintaining focus. Will continue IOP tx to further increase emotion regulation, improve coping and communication, and improve daily functioning. Narrative Note: []
--- NOTE | 2020-02-05 10:16 | BH.SGPN.GN ---
Behaviors/Verbalizations/Mental Status: []Client alert and oriented, casually dressed and groomed. Eye contact often intense. Motor activity appropriate. Speech tangential, pressured. Affect co, mood euthymic. Thoughts often displaying loose associations, off topic easily, no signs of hallucinations or delusions. Client Response/Progress/Benefit: []Client receptive to session, engaged throughout though struggling with being distracted by phone or making off-topic remarks. Client struggled to be easily redirected and often making loose associations which at times distracted himself and others in group. Client participated in group discussion to define conflict and identify differences between internal and external conflict. Providing examples throughout, though at times examples were off topic/not relevant. Group reported the benefits of addressing conflict included increased self-confidence, increased trust in relationships, having needs be met, and preventing further conflict from arising. Group identified and discussed consequences of not addressing conflict in healthy ways which included: decreased self-esteem, damaged relationships, increased mental health symptoms, and additional stressors developing as a result. Benefited as client was able to identify current conflict style, though struggled in identifying how it impacts mental health and relationships with others. Noted he often is a little of each style but can definitely fall more into the accommodating style at times?. Progress limited given pt difficulties in remaining on topic and remaining engaged fully in discussion. Will continue IOP tx to promote insight and application of healthy skills, increase stability, reduce mental health sx severity, and further improve daily functioning. Narrative Note: []
--- NOTE | 2020-02-05 11:20 | BH.SGPN.GN ---
Behaviors/Verbalizations/Mental Status: []Client alert and oriented, casually dressed and groomed. Eye contact fair. Motor activity appropriate. Speech within normal limits. Affect congruent, mood euthymic. Thoughts linear, logical, no signs of hallucinations or delusions. Made off topic comments at times. Distracted at times during session AEB client looking at phone and distracting others by showing peer messages from phone. Client Response/Progress/Benefit: []Client semi-engaged participant AEB client providing limited input during discussion. Listened to ongoing discussion of the different conflict resolution styles, drawbacks, and appropriate times of use. Client stated he most often accommodates when faced with conflict. Client reported in the past accommodating negatively impacted mental health because wasn't verbalizing his thoughts or opinions. Client reported now it doesn't impact me because my medications are very fine tuned. Client seems to lack insight into how the way he resolves conflict impacts mental health and relationships. Client appeared to benefit from increasing awareness of personal conflict resolution style and from learning ways to increase healthy conflict resolution. Will continue tx to stabilize moods, improve self-awareness and prevent decompensation. Narrative Note: []
--- NOTE | 2020-02-08 09:10 | BH.SGPN.GN ---
Behaviors/Verbalizations/Mental Status: [] Eye contact is good. Motor activity is appropriate. Appearance is causal. Speech is pressured. Difficulty staying on topic. Mood is anxious. Affect is flat. Thoughts are tangential. No evidence of psychosis. Reviewed daily check in sheet and no reports of suicidal ideations or intent. Client Response/Progress/Benefit: [] Pt participated at times in group discussion on anxiety/fear related to COVID-19 and ways to help manage emotions. Fell asleep during group. Discussed spending this weekend with a friend riding his dirt bike. Tangential during check-in however was able to notice that he was going off topic. Needed some re-direction from therapist. Therapist pointed out that pt appeared tried this AM and pt agreed however stated that he had a good night's sleep. Pt's eyes are red and has difficulty keeping them open. Throughout check in gave contradictory statements about her sleep. He states he feels more calm today and less amped up. Limited benefit from group due to falling asleep. No progress noted since starting IOP. Pt did have an energy drink with him this AM which is a concern due to hx of excessive energy drink consumption. Will address this with pt this afternoon. Will continue in IOP to monitor mood, encourage compliance with medications and energy drink restriction, increase healthy coping skills, and help transition back to work. Narrative Note: []
--- NOTE | 2020-02-08 10:15 | BH.SGPN.GN ---
Behaviors/Verbalizations/Mental Status: []Client alert and oriented, casually dressed and groomed. Eye contact fair. Motor activity appropriate. Speech rambling at times. Affect labile, mood varied from euthymic, dysphoric and dysthymic. Loose associations. No signs of hallucinations or delusions. Client Response/Progress/Benefit: []Client verbally contributed to discussion, however client's comments were often not on topic or loosely associated. Group identified the benefits to setting boundaries as well as the consequences of not setting healthy boundaries. Participated in the discussion of benefits of setting boundaries which included; increase control over situations, self-protection, self care, and ability to manage mental health better. Client reported when he has been manic in the past he struggles with having boundaries which negatively impact his relationships. Client seemed to benefit from increased awareness of how poor boundaries can negatively impact mental health. Will continue IOP tx to stabilize moods, increase use of healthy coping and prevent decompensation. Narrative Note: []
--- NOTE | 2020-02-08 11:17 | BH.SGPN.GN ---
Behaviors/Verbalizations/Mental Status: []Client alert and oriented, casual dress, hygiene appropriate. Eye contact intense. Motor activity restless. Speech tangential, off topic. Affect labile joking to tearful. Erratic mood. Loose Associations. no signs of hallucinations or delusions. Client Response/Progress/Benefit: []Client responded somewhat well to session as he was engaged at times. However, client?s responses were tangential and off topics during discussion and his affect was labile. Client engaged in the boundary self-assessment activity. Client alluded that he has been rigid with his emotional boundaries in the past, but now he believes that ?communication is everything.? Client was attentive at first during psychoeducation of boundary setting styles, but then he became withdrawn. Client able to recognize that he is having a hard time regulating his mood today. Appeared to benefit from connecting with peers and practicing a self-reflection activity. Progress limited as client continues to report variable sleep and difficulty regulating his moods. Will continue IOP tx to prevent decompensation, monitor medication, and improve mood stability. Narrative Note: []
--- NOTE | 2020-02-08 13:00 | BH.COMM ---
Communication Note - Communication with Client Communication Note: Talked with patient over lunch regarding some concerns about his mood today. Pt remains tangential and displayed some erratic moods (crying w/o reason) and increased irritability this AM. Pointed out that I noticed that he had an energy drink this AM (first time staff has noticed this) and that he fell asleep in first group. Intially denied sleep problems than admitted and minimized. States that he only had half a can of energy drink (empty can noticed in recyclable bin). I suspect that pt is lying about his sleep, energy drink consumption, and possible other aspects of compliance with treatment. During the conversation he also mentioned buying a new car and feeling that he needs to get back to work sooner than expected. He beleives that getting back to work will essentially cure him through mental stimulation. Fearful that grandiose thoughts and impulsivity have not improved despite reported medication compliance. At this point his symptoms did not warrant an involuntary admission however I mentioned to him and his outpatient therapist (who has been seeing for several years) that I'm concerned that he utilizing energy drinks to trigger drew or excessive feelings of productivity. I urged him to stop energy drink use and get some sleep. He agreed. Pt has appointment with outpaitent counselor outside of [facility] tomorrow and plans to meet with [facility] psychiatrit on Saturday. I have printed off numerous articles discussing the link between drew and energy drinks to discuss with him on Saturday. Lab results obtianed this AM and his Depakote level is in theraputic range
--- NOTE | 2020-02-10 08:27 | BH.COMM_ITS ---
Communication Note - Communication with Client Communication Note: Team meeting this AM. Due to pt's lack of progress and increased tangential thoughts, pressured/rapid speech, and difficulty staying on topic in group sessions it was decided that he will not attend groups however will come in daily to meet with this therapist who will continue to monitor his mood and progress. Due to pt's current state he does not appear to be retaining much information in group and has become a distraction to other group members im jennying jayda treatment. Plan is to meet with him individually today and stress the importance of compliance with abstaining from energy drinks and medications. Pt's Depakote level was 51. After speaking with psychiatrist the level should be higher than the 01/22/20 level of 58 since she increased the dosage last week, therefore beleives that he is non-compliant with medications. Fearful that he will continue to decompensate if he utilizies caffiene to maintain high energy therfore impacting his sleep and mental state.
--- NOTE | 2020-02-10 10:00 | BH.COMM ---
Communication Note - Communication with Client Communication Note: Did not show for IOP this AM. Called and left message.
--- NOTE | 2020-02-10 14:09 | BH.COMM ---
Communication Note - Communication with Client Communication Note: Spoke with pt over the phone. States that he did not realize he was suppose to come into IOP today. Notes that he slept last night and this AM like a rock. Remains focused on returning to work.
--- NOTE | 2020-02-11 11:35 | BH.MDN_ITS ---
Multi-Disciplinary Note - Note 60-min Individual Time Started:: 10:10 Date: 02/11/20 Purpose of session/treatment goals addressed:: Reviewed current symptoms and progress in IOP. Addressed treatment goal 1 Eye Contact:: Fair Motor Activity:: Restless Appearance:: Disheveled Speech:: Tangential, Rambling, Rapid Mood:: Irritable Affect:: Full Thoughts:: Racing, Flight of ideas Staff Interventions:: Provided research on negative impact of energy drinks on Bipolar. Challenged unhealthy thinking. Developed plan for the next week. Utilized [place] techniques to elicit change behaviors. Client Response:: Pt started the session discussing past issues with energy drinks in 2016. [place] that they improved his performance in soccer. Admitted to being addicted to them and using them as a tool to help his mood. Reports that he was depressed related to struggles in marriage and ultimate divorce and he used energy drinks to rev him up. Discussed how this impacted his job and marriage. Unfortunately he is rationalizing his use currently. SOme insight that it impacts him negtively at work and with support. Prior to his most recent admissions he reported drinking 5 energy drinks per day. Admits to current use however is vague and may be minimizing stating I have a sip. Long discussion in which therapist provided research articles on energy drinks impact on drew he agreed to stop energy drinks. Admits that he had been using them throughout the day to stay awake which has significantly impacted his sleep. Was going to sleep around 3am. Also admited to missing a few doses of his medications. He is not taking his Trazadone for sleep. Confronted him on the impacts of poor sleep on functioning and if he continues he will jepordize his job. Agreeable to stopping energy drinks, taking meds as prescribed, and falling asleep at reasonable time. Appears motivated. Risks/Concerns:: Denies any SI, plan, or intent. Pt continues to be tangential. Mild paranoid thoughts which he shows insight into not being based in reality. Currently not at-risk. Does not currently meet criteria for involuntary admission however if he continues to abuse energy drinks and not take medications as prescribed he will decompensate. Progress Toward Goals/Plan:: Pt presents as improved from 02/08/20. Mood is less erratic. Less irritable. Limited progress mainly due to using energy drinks to m anage his moood and not being compliant with medications. Rationalizes his use which is impacting his sleep and mood. After lengthy conversation with patient he showed insight inot how his actions are impeding his progress and agreed to make changes. If pt does not stop using energy drinks to increase energy he will continue to decompensate. Plan was made for the next 4 days in which he will abstain from energy drinks, take meds as prescribed, and attempt to go to sleep at 10-11pm. Due to pt's lack of progress and increased tangential thoughts, pressured/rapid speech, and difficulty staying on topic in group sessions it was decided that he will not attend groups however will come in daily to meet with this therapist who will continue to monitor his mood and progress. Due to pt's current state he does not appear to be retaining much information in group and has become a distraction to other group members impeding thier treatment. Plan is to meet with him individually to monitor mood and ensure he is following with plan. Time Stopped:: 11:10
--- NOTE | 2020-02-12 12:57 | BH.MDN ---
Multi-Disciplinary Note - Note 60-min Individual Time Started:: 11:10 Date: 02/12/20 Purpose of session/treatment goals addressed:: Review current symptoms and progress since last session. Continuing to monitor and encouragmen health coping decisions during drew. Eye Contact:: Fair Motor Activity:: Restless Appearance:: Casual Speech:: Pressured, Tangential, Rambling - decrease from yesterday Mood:: Euthymic Affect:: Full Thoughts:: Racing, Flight of ideas Staff Interventions:: Utilized [place] to elicit change behaviors. Provided education on health sleep. Challenged unhealthy rationalizations. Client Response:: Pt reports that he slept from 1am-10am yesterday. Presents w/o bloodshot eyes. Less restless and tangenetial from yesterday. Also reports that he did not have any energy drinks since yesterday. Pt continues to rationalize poor decisions regarding his sleep trying to explain to this therapist sleep hacks which involve sleeping in 2 hour increments beleiveing that 2 hour increments is all the body needs. This was challenged by therapist and we discussed what science says about the amount of sleep that is beneficial. States that he has 300 things to do during the day which is why he needs so much energy. We challenged this and prioritized the tasks which he wants to complete. Had discussion on the negative impact of self-medicating through alcohol, energy drinks, or other unhealthy habits. He voices that he agrees, however continues to rationalize these unhealthy habits. Admits to drinking 2 beers last night and staying up late to play video games with his friend. Hesistant to take his prescribed sleeping medication and PRN medications b/c I don't want to be a zombie. Another lengthy conversation on the importance of this. Risks/Concerns:: No concerns noted. Pt was less tangential and restless than yesterday. No psychosis or delusions noted today. Appears more rested AEB no blood-shot eyes and not resting eyes during the session. Progress Toward Goals/Plan:: Majority of the session is spent challenging rationalizations to continue with unhealthy coping skills (energy drinks, poor sleep, non-compliance with medications). Despite this continued resistance he claims to have taken his Depakote last night and slept 8 hours. During conversation pt showed this therapist a pic of what he did this AM. In the picture this therapist noticed a drink called Toshia which pt reported was a health drink. After the session therapist looked up Toshia and this turns out to be an energy drink with 100mg of caffiene. Again pt does not appear to be truthful and is non-compliant with treatment recommendations. Limited progress noted. Will continue with indiviudal sessions to continue to monitor mood, challenge unhealthy rationalizations, and encourage compliance with medications and agreed upon sleep schedule. Pt is suppose to log his sleep. Time Stopped:: 12:05
--- NOTE | 2020-02-15 15:54 | BH.MDN ---
Multi-Disciplinary Note - Note 60-min Individual Time Started:: 11:10 Date: 02/15/20 Purpose of session/treatment goals addressed:: Review treatment progress and current symptoms. Treatment goals adressed were related to medication and treatment compliance. Eye Contact:: Intense Motor Activity:: Restless Appearance:: Disheveled Speech:: Pressured, Tangential, Rambling, Rapid Mood:: Irritable Affect:: Labile Thoughts:: Racing, Flight of ideas, Circular, Other - Delusions related to the current status of his marriage. Per pt's mother and father he has been for 4 years. Pt is fixated that he is still or at the least legally . Went down to the court house today to get a copy of his marriage certificate as a sanity check. Showed up at ex-'s house unexpectedly yesterday and 2x prior. Also believes that jayda is a virtual form of himself walking around [place] utilizing his credit cards and stealing things form his house. Staff Interventions:: Utilized [place] techniques to elicit change behaviors. Gained collateral from pt's mother, father, and therapist. Provided escort to ER to get evaluated. Client Response:: Met with pt individually however after the session recieved collateral from pt's mother and father. Pt presents today looking discheveled. Reports minimal sleep last night stating he took some cat naps throughout the day yesterday. Not following through with agreement to stop energy drinks and maintain appropriate sleep schedule. Non-compliant with medications. Delusional. Manic AEB disorganized thoughts, tangential, FOI, grandiose, racing thoughts, and hypervigilance. Non-sensical at times. Admits to using energy drinks consistently since last session on 02/12/20. Overall has been consuming several energy drinks daily since discharge from psych unit on 01/25/20. Admits to using energy drinks to help cope with depression, maintain drew, and to increase his productivity. Per reports from his mother pt had unexpectedly showed up to his ex-'s house this weekend. Pt has not seen ex- in 4 years. Ex- had texted mother as she was concerned regarding his behavior. Per mother ex- reports that he had shown up 2x previously when she was asleep. Pt admits to going over his ex-'s house. Becomes fixated that they are still and are not (per mother and father they have been several years). Pt tearful and ruminating on this relationship. Delusional that they are sill . Went to the court [place] to obtain marriage certificate to prove this. According to mother pt's reports that he verbalized to her there is a rosalinda in his house having sex with his . Never made any threats towards him. Also believes that somehow [employer] or [employer] has created a virtual form of him which her has seen around town. Believes that this virtual form is stealing from his house and moved his computer across town. Tells this therapist there are too many dots outhere that I'm connecting that aren't right. Implying that this virtual form is a reality that he is aware of and nobody else. Contines to rationalize non-compliant with medications stating I don't want to be a zombie. Abusing energy drinks and alcohol. Delusional. Due to current mental state outpatient therapy is not effective. Risks/Concerns:: Due to delusions, disorganized thoughts, non-compliance with medications, and abuse of energy drinks to maintain drew pt was escorted to the ER for evaluation. Progress Toward Goals/Plan:: No progress noted. After speaking with pt's mother and father more colleteral was obtained regarding pt's decompensation since last week. Clearly decompensating. Delusional (beleiving that he is still , believing that virtual form of himself is stealing objects). Went to the [facility] to get marriage certificate that provies they are still (in reality for 4 years). Disclosed to mother some rosalinda is in my house with my . Showed up to his ex-'s house 3x unexpectedly (twice while ex- was asleep) is significantly concerning. HAd not seen ex- for 4 years previous to showing up this past weekend. Labile. Disorganized. Tangential. FOI. racing thoughts. Non-compliant with medications. Utilizing energy drinks to cope with depression and maintain drew. Grandiose beleiving that he is able to return to work b/c [employer] needs me. Plan was to escort pt to the ER to get evaluated. Spoke with ER SW and recommended hosptialization.
--- NOTE | 2020-02-16 09:07 | BH.DS ---
Discharge Summary - Demographics Date of Admission:: 02/01/20 Discharge Date: 02/15/20 Presenting Problems at Admission:: Pt is a 29 year old male with a hx of Bipolar. Hx of 3 previous psychiatric admissions with most recent at [facility] from 01/15/20-01/25/20 due to drew, paranoia, and inability to function at home/work. Per collateral from ER notes and H/P from psych admission family reported that pt was non-compliant with medications and was abusing alcohol and energy drinks. Prior to admission family noted significant paranoia and bizare behaviors. Two hospitalizations for drew/delusions in 12/2019. Diagnosed with Bipolar in 04/2018. Pt reported improved functioning since psych discharge on 01/25/20. Reports medication compliance. During intial intake pt presented as manic AEB tangential thoughts, FOI, rapid speech, and difficulty staying on topic. Extremely focused on returning to work, however did have insight that he was not stable enough to return to work. Struggling with accepting Bipolar dx, however does admit to having drew. Minimizes the impact of drew. 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 When manic pt is paranoid, disorganized, experiences hallucinations, and has decreased sleep. He denies issues with alcohol and energy drink abuse. Due to 2 psychiatric admissions in 4 weeks, hx of non-compliance with medications, MH symptoms impacting functioning, and limited insight into Bipolar pt was admitted to [facility]. Pt declined [facility] level of care which was recommended. Discharge Diagnoses:: Bipolar, most recent epidode manic, F31.2 Reason for Discharge:: Pt decompensated and needed a higher level of care. - Treatment Progress During Treatment & Response: No progress noted during treatment. Pt was non-compliant with medications and treatment recommendations. Therapist had noticed decompensation within the first week and pt was pulled out of groups to decrease stimuli and monitor more closely with individual sessions. Pt continued to decompensate. Was abusing energy drinks to maintain drew which impacted his sleep eventually leading to resckless spending, not sleeping, delusions and psychosis. Issues Still to be Addressed:: Delusions, drew, hx of non-compliance with medications, addictions and abuse of energy drinks to maintain drew, grief, depression, anxiety, poor insight into his disorder and addiction. Discharge Recommendations/Instructions:: Pt was escorted to [facility] ER for evaluation due to psychosis and drew. Pt was admitted to [facility] for stabilization. Discharge Handout: Complete Discharge Handout with client on aftercare options and continuity of care.
== END 2020-02-15 17:00 | disposition short-term general hospital (02) ==
LOC: BHIOP 09:00
PROVIDERS: Referring Provider Psychiatry & Neurology Psychiatry; Visit Provider Psychiatry & Neurology Psychiatry
DX: F31.2 Bipolar disorder, current episode manic severe with psychotic features (principal); F17.210 Nicotine dependence, cigarettes, uncomplicated; Z79.899 Other long term (current) drug therapy
CPT/HCPCS: H0035; 90837; 90853

== ENCOUNTER → 2020-02-08 08:34 | Outpatient (CLI) | payer OTHER, SELFPAY ==
[2020-01-15 13:59] VITALS: BMI 29.2
[2020-02-08 09:38] LABS: Absolute Lymphocyte Count 2.19 X10^3/uL (0.83-4.51); Absolute Neutrophil Count 4.4 X10^3/uL (2.0-7.7); Basophil# 0.02 X10^3/uL; Basophil% 0.3 % (0-1); Eosinophil# 0.21 X10^3/uL; Eosinophils% 2.7 % (0-5); Hematocrit 46.9 % (40-54); Hemoglobin 15.8 g/dL (13.0-16.5); Lymphocyte # 2.19 X10^3/ul (4.0); Lymphocyte % 27.9 % (19-41); Mean Corp Hgb Conc 33.7 g/dL (32-36); Mean Corpuscular Hgb 31.6 pg (27.0-32.0); Mean Corpuscular Volume 93.8 fL (80-94); Mean Platelet Vol. 11.5 fl (6.2-12.0); Monocyte# 1.06 X10^3/uL; Monocyte% 13.5 % (0-10); NRBC Flagged by Analyzer 0 % (0-5); Neutrophil # 4.36 X10^3/uL (2.7-7.7); Neutrophil % 55.3 % (47-70); Platelet Count 265 K/mm3 (150-450); RBC Distribution Width CV 12.2 % (11.6-14.6); White Blood Count 7.9 K/mm3 (4.4-11.0)
[2020-02-08 10:01] LABS: AST(SGOT) 39 U/L (15-37); Alanine Aminotransfer ALT/SGPT 56 U/L (16-61); Albumin, Serum 3.8 g/dL (3.2-5.0); Alkaline Phosphatase 96 U/L (45-117); Bilirubin, Direct 0.11 mg/dL (0.00-0.30); Globulin 3.7 g/dL (2.2-4.2); Protein, Total 7.5 g/dL (6.4-8.2)
[2020-02-08 10:07] LABS: Valproic Acid (Depakene) Level 51 ug/mL (50-100)
[2020-02-08 10:13] LABS: Vitamin D,25 Hydroxy 37.4 ng/mL
== END ==
PROVIDERS: PCP Family Medicine; Referring Provider Psychiatry & Neurology Psychiatry; Visit Provider Psychiatry & Neurology Psychiatry
DX: Z79.899 Other long term (current) drug therapy (principal)
CPT/HCPCS: 36415; 80076; 80164; 82306; 85025

== ENCOUNTER 2020-02-15 15:51 | Emergency (ER) | payer OTHER, SELFPAY ==
[2020-02-15 15:53] VITALS: BP 140/93; PULSE 117; RESP 18; TEMP 37.3; O2SAT 97; BMI 31.0
--- NOTE | 2020-02-15 16:26 | ED.DCSUM_ITS ---
- ER Visit Summary Date of Service: 02/15/20 Chief Complaint: Manic behavior History of Present Illness: The patient is a 29 M presenting with manic behavior. Patient was at the [facility] [place] today. He was sent in to the ED for further evaluation. He is unsure if there was miscommunication. He is unable to give me a direct answer as far as why he is in the emergency department. He has flight of ideas and tangential thoughts. He reportedly went to his ex-'s house last night and believes that they were still . He states he has a marriage certificate to prove this. He is unsure if she is aware that they are still . He was recently admitted to [place] for bipolar disorder. His Depakote medication was adjusted at that time. He states he has been sleeping better than previous. He does use a lot of caffeine. He admits to occasional alcohol use. Denies drug use. Denies other complaints. Physical Examination: Vitals are stable. Patient is afebrile. Alert no acute distress. HEENT exam is unremarkable. Neck is supple. Lungs are clear and equal bilaterally. Heart is regular rate and rhythm. Abdomen is soft nontender nondistended. Extremities are unremarkable. Skin is warm and dry. No focal neurologic deficit. Flight of ideas Remainder of exam is unremarkable. Emergency Department Course and Treatment: CBC, chemistries unremarkable. Valproic acid level 95. Alcohol level negative. Urine tox is pending. Patient will be evaluated by social work in the ED. Disposition: Per social work Impression: Manic behavior This note was generated with [employer] dictation software. It may contain incorrect words, spelling, and punctuation that were not noted in review of the chart prior to signing ED Disposition - Plan for ED Patient: Referrals: Yaw Lopez MD [Primary Care Provider] -
[2020-02-15 16:49] LABS: Absolute Lymphocyte Count 2.48 X10^3/uL (0.83-4.51); Basophil# 0.04 X10^3/uL; Basophil% 0.5 % (0-1); Eosinophil# 0.51 X10^3/uL; Eosinophils% 6.6 % (0-5); Hematocrit 47.2 % (40-54); Hemoglobin 15.8 g/dL (13.0-16.5); Lymphocyte # 2.48 X10^3/ul (4.0); Lymphocyte % 31.9 % (19-41); Mean Corp Hgb Conc 33.5 g/dL (32-36); Mean Corpuscular Hgb 31.7 pg (27.0-32.0); Mean Corpuscular Volume 94.8 fL (80-94); Mean Platelet Vol. 11.1 fl (6.2-12.0); Monocyte# 0.77 X10^3/uL; Monocyte% 9.9 % (0-10); NRBC Flagged by Analyzer 0 % (0-5); Neutrophil # 3.95 X10^3/uL (2.7-7.7); Neutrophil % 50.7 % (47-70); Platelet Count 206 K/mm3 (150-450); RBC Distribution Width CV 12.1 % (11.6-14.6); RBC Distribution Width SD 42.3 fl (35.1-43.9); Red Blood Count 4.98 M/mm3 (4.6-6.2); White Blood Count 7.8 K/mm3 (4.4-11.0)
[2020-02-15 17:03] LABS: BUN 25 mg/dL (7-18); Creatinine, Serum 0.95 mg/dL (0.70-1.30); EST Glomerular Filtration Rate 99 mL/min (>60); Glucose 96 mg/dL (74-106)
[2020-02-15 17:04] LABS: Anion Gap 5 (5-15); BUN/Creat Ratio 26.3 RATIO (10-20); Calcium,Total 9.2 mg/dL (8.5-10.1); Chloride 107 mmol/L (98-107); Est Glom Filt Rate - Afr Amer 119 mL/min (>60); Potassium 3.7 mmol/L (3.5-5.1); Sodium Level 140 mmol/L (136-145)
[2020-02-15 17:28] LABS: Valproic Acid (Depakene) Level 95 ug/mL (50-100)
[2020-02-15 17:36] LABS: Alcohol, Blood (Medical)-Serum < 3.0 mg/dL
[2020-02-15 18:20] LABS: Amphetamine Urine VISTA NEGATIVE (<1000 ng/mL); Barbiturate Urine VISTA NEGATIVE (< 200 ng/mL); Benzodiazepine Urine VISTA NEGATIVE (< 200 ng/mL); Cocaine Urine VISTA NEGATIVE (< 300 ng/mL); Ecstacy Urine VISTA NEGATIVE (< 500 ng/mL); Methadone Urine VISTA NEGATIVE (< 300 ng/mL); PCP Urine VISTA NEGATIVE (< 25 ng/mL); THC Urine VISTA NEGATIVE (< 50 ng/mL); Vista UDS pH Range 6
--- NOTE | 2020-02-15 19:00 | ED.RN ---
PT REMOVED GOWN AND DRESSED IN STREET CLOTHES, PT WENT TO THE BATHROOM WITH BACKPACK ON. PT LEFT BATHROOM AND EXITED OUT OF THE E.D. DEPARTMENT. PT WAS NOT DISCHARGED, VINNY CARVER RN, ATTEMPTED TO TALK TO PT AND CONVINCE PT TO STAY. PT THEN RETURNED BACK TO ROOM WITH HIS PARENT, SULEIMAN TURNER. HRO, OFFICER TARUN INFORMED OF SAME.
--- NOTE | 2020-02-15 19:20 | CM.ED ---
SOCIAL WORK INFORMANT: DR. HANNON REASON FOR REFERRAL: MENTAL HEALTH CHIEF COMPLIANT: PRESENTS TO EMERGENCY DEPARTMENT ESCORTED BY RAMY AUGUST FROM THE [facility]. PATIENT CURRENTLY ACTIVE IN IOP. PATIENT WITH MANIC BEHAVIOR, RACING THOUGHTS, FLIGHT OF IDEAS, DELUSIONS. MARITAL/SOCIAL HISTORY: LIVING SITUATION: HOME-ALONE SUPPORT/RESOURCES: [facility], [employer] EMPLOYMENT HISTORY: EMPLOYED- CURRENTLY NOT WORKING D/T MENTAL HEALTH MENTAL HEALTH TREATMENT/HISTORY: BIPOLAR DISORDER. PATIENT HAS BEEN FOLLOWING WITH [facility] AND [employer]. PATIENT PRESCRIBED MEDICATION AND HAS HISTORY OF NON COMPLIANCE. TRIGGERS/STRESSORS: BEING OFF WORK COPING SKILLS: LISTENING TO MUSIC, BREATHING TECHNIQUES SUBSTANCE ABUSE HX: PATIENT SELF MEDICATING WITH ALCOHOL AND ENERGY DRINKS. RISK TO SELF/OTHERS: PATIENT DENIES ANY SUICIDAL OR HOMICIDAL IDEATION. ORIENTATION: A&OX3 MEMORY: FAIR APPEARANCE/GENERAL BEHAVIOR: DISHEVELED MOOD/AFFECT: ELEVATED, ANXIOUS COMMUNICATION PATTERN: RAMBLING, PRESSURED, RAPID THOUGHT PROCESS: PARANOID, DELUSIONS JUDGMENT: POOR ASSESSMENT: PATIENT WELL KNOWN TO THIS WORKER FROM PREVIOUS VISITS. MET WITH PATIENT AND MOTHER IN ROOM. PATIENT GAVE PERMISSION FOR THIS WORKER TO SPEAK OPENLY WITH MOTHER PRESENT. PATIENT ADMITS TO MISSING A FEW DAYS OF MEDICATION AND SELF MEDICATING WITH ENERGY DRINKS, I WANT TO KNOW WHAT THE KIDS ARE DOING NOW A DAYS. PATIENT BRIEFLY SPOKE ABOUT HAVING AN IDENTITY CRISIS. PER REPORT FROM MARIO ALBERTO WITH [facility], PATIENT BELIEVES THERE IS A VIRTUAL FORM OF HIMSELF WALKING AROUND [place] USING HIS CREDIT CARDS AND STEALING THINGS FROM HIS HOME. PER PATIENT'S MOTHER, PATIENT HAS SPENT OVER $3000.00 IN THE LAST WEEK ON CELL PHONES, DANELLE CONSOLES, AND WEB SITES. PATIENT HAS BEEN FIXATED ON EX- AND HAS SHOWN UP AT HER HOME X2. EX- HAS BEEN IN CONTACT WITH PATIENT'S MOTHER VOICING CONCERN FOR PATIENT'S BEHAVIORS. PATIENT DOES NOT BELIEVE HE IS . DISCUSSED PATIENT'S STATUS AND CONCERNS WITH DECOMPENSATION. COLLABORATION WITH DR. HANNON. PLAN FOR INPATIENT HOSPITALIZATION FOR STABILIZATION. THIS WORKER TO FACILITATE PLACEMENT. PLAN: REFERRAL FOR INPATIENT PSYCH HOSPITALIZATION. Kai TREJO, SYSTEMS TEST ANALYST, JAI ALAI PLAYER.
--- NOTE | 2020-02-15 19:53 | CM.ED ---
SOCIAL WORK REFERRAL FAXED AND CALLED TO [facility]. AWAITING ACCEPTANCE. Kai TREJO, SECURITY SYSTEM INSTALLER, DIRECTOR OF BUSINESS SYSTEMS.
--- NOTE | 2020-02-15 21:10 | CM.ED ---
SOCIAL WORK PATIENT ACCEPTED TO [facility] BY DR. BACA TO THE [facility]. NURSE TO CALL REPORT TO . [facility] [employer] FAXED PER REQUEST. Kai TREJO MSW, GROUND HAND.
[2020-02-15 21:36] VITALS: BP 140/79; PULSE 104; RESP 18; TEMP 36.9; O2SAT 98
[2020-02-15 23:08] VITALS: BP 140/79; PULSE 104; RESP 18; TEMP 36.9; O2SAT 98
== END 2020-02-15 23:15 ==
LOC: ED 16:27
PROVIDERS: Emergency Provider Emergency Medicine; PCP Family Medicine
DX: F30.9 Manic episode, unspecified (principal); Z79.899 Other long term (current) drug therapy; Z72.0 Tobacco use
CPT/HCPCS: 80048; 80164; 80307; 80320; 85025; 99283; G0480

== ENCOUNTER 2020-03-01 09:00 | Outpatient (RCR) | payer OTHER, SELFPAY ==
--- NOTE | 2020-03-01 09:08 | BH.SGPN.GN ---
This psychotherapy group was provided via telehealth using two-way, real-time interactive telecommunication technology between the patients and the provider.?The interactive telecommunication technology included audio and video.? ?The patient was offered telemedicine as an option for care delivery during the COVID-19 pandemic and consented to this option. ?Patient location: [place] ?Provider located at [facility] Behaviors/Verbalizations/Mental Status: []Client alert and oriented, casually dressed and groomed. Eye contact good. Motor activity restless AEB walking around his house frequently. Speech tangential. Affect congruent, mood manic. Thoughts were consistent with loose associations. Client entered session late and did not fill out a daily symptom tracker. Will meet with individual therapist today. Client Response/Progress/Benefit: []Client did not respond well to session, struggled to stay on topic and was moving throughout his house throughout session. Client shared he is feeling really good today and that he is ready to focus on his goals now that he is out of the hospital. Client reported he took his medication on time today which is positive as client has a history of medication noncompliance. Client shared his stressor today is other people are just jerks and he does not want to be a shark towards them. Client was difficult to redirect and when he was not sharing, he was interrupting peers who were sharing. Client was not doing this with malicious intent, however, he does appear manic today. Client will continue to be monitored and his individual therapist will be notified. Will continue PHP to prevent decompensation, maintain safety, and decrease erratic moods. Narrative Note: []
--- NOTE | 2020-03-01 10:16 | BH.SGPN.GN ---
This psychotherapy group was provided via telehealth using two-way, real-time interactive telecommunication technology between the patients and the provider. The interactive telecommunication technology included audio and video. The patient was offered telemedicine as an option for care delivery during the COVID-19 pandemic and consented to this option. Patient location: [place] Provider located at [facility] Behaviors/Verbalizations/Mental Status: []Client alert and oriented, casually dressed and groomed. Eye contact good. Motor activity restless. Speech tangential, rambling. Affect congruent, mood euthymic. Thoughts appear to be distracted and making loose associations throughout, racing, no signs of hallucinations or delusions. Client Response/Progress/Benefit: []Client was semi-attentive throughout however often became distracted by self, own thoughts, and his environment which impacted ability to participate in discussion. Participated in discussion of the quote and shared agreeing that choosing a healthier path in life can be difficult. Discussed that it can be ?hard to know when to make changes and when you?ve reached your limits?. Client again struggled to remain focused on topic of discussion and often began speaking out of turn or over others. At times pt struggled with focusing on objects in the room rather than discussion which became distracting to self and peers. Struggled to remain consistently attentive during psychoeducation on the chapters of life. Benefited from education on barriers to choosing new wellness paths, though continues to struggle with internalizing materials learned. This may be impacting progress levels as well. Continues to struggle with consistent skill application. Will continue PHP tx to further reduce impulsivity, promote healthy coping, stabilize mood, while improving client?s ability to function at baseline. Narrative Note: []
--- NOTE | 2020-03-01 15:26 | BH.MDN_ITS ---
Multi-Disciplinary Note - Note 60-min Individual Time Started:: 11:27 Date: 03/01/20 Purpose of session/treatment goals addressed:: This counseling session was provided via telehealth using two-way, real-time interactive telecommunication technology between the patient and the clinician. The interactive telecommunication technology included audio and video. The patient was offered telehealth as an option for care delivery during the COVID-19 pandemic and consented to this option. Patient location: [place]. Provider located at [facility]. Reviewed current symptoms and stressors, as well as daily routine and functioning since discharge from inpatient hospitalization. Began to develop treatment plan goals and reviewed maintaining medication compliance. Eye Contact:: Good Motor Activity:: Restless Appearance:: Casual Speech:: Tangential, Rambling Mood:: Irritable Affect:: Full Thoughts:: Racing, Flight of ideas Staff Interventions:: Therapist asked open ended questions to elicit information regarding current symptoms and stressors, as well as daily routine and functioning since discharge from inpatient hospitalization. Reviewed importance of maintaining medication compliance. Provided supportive feedback and support. Used ND techniques to promote change behaviors. Work with pt to challenge distorted thought patterns. Began Treatment goal planning. Client Response:: Pt recently returning to [facility] Behavior Health program as a client in the partial hospitalization program following recent discharge from [facility] 02/15/20-02/24/20 due to drew, paranoia, and inability to function at home or while in the [facility] behavioral health IOP tx program. Pt reports feeling ?a little distracted? and having difficulties focusing which he attributed to staying up all night and missing his medication last night as well. Pt and therapist briefly discussed previous recommendations to insure he is maintaining compliant with all medications in order to improve stability and prevent rehospitalization. Pt expressed understanding, however indicated some reluctance in doing so. Willing to commit to maintaining medication compliant at this time, however, has a history of non-compliance. Discussed that he had spent his night online and playing video games. Expressed that being online that late had ?triggered me to go down a rabbit hole of bad paths on the dark web?. Discussed passive thoughts of immediately following this which lasted several minutes. Denied plan or intent at the time. Denies current SI/HI, plan, or intent. Willing to call crisis hotline if feeling suicidal at night again. Additionally, pt discussed feeling that lack of sleep and not taking his medication had temporarily ?pushed me close to the limit of my threshold?, explaining that breaking his threshold would result in hospitalization. Denies currently feeling this way and indicated plans to sleep following this session as well as spend time sitting outdoors. Pt was restless and tangential throughout session, though at times was able to be easily redirected. Pt appearing to rationalize poor decision making, specifically that of not sleeping or taking his medications. Expressed delusional thought patterns AEB pt indicating that prior to this session he burned several drawings of stick figures on paper as a means of counteracting evil forces causing the COVID-19 virus. Limited insight into extent of delusional thought patterns or impact of his behaviors on his mental health. Pt does however report remaining compliant with recommendation of not consuming energy drinks at this time. Indicates he is however drinking 2-3 pepsi and 1-2 beers daily. Reviewed a prior discussion on the negative impact of self-medicating through alcohol, caffeine, or other unhealthy habits. Pt voices that he agrees and indicated willingness to reduce internet time by not going online after 9pm to prevent from toxic web browsing and attempt to improve overall ability to sleep. Risks/Concerns:: Pt denies any active suicidal ideations, plan, or intent as of this date, 03/01/20. Pt tangential throughout session. Mild paranoid thoughts in which pt shows some insight into not being based in reality. Currently not at- risk. Does not currently meet criteria for involuntary admission however if he continues to not take medications as prescribed he is at heightened risk of decompensation. Pt reports of surfing the ?dark web? present concern. Therapist will consult further with pt outpatient therapist as well as the Counsel[facility], [facility] Family Therapist Board for further consultation on addressing this matter. Progress Toward Goals/Plan:: Limited progress noted as this is pt's 1st day in PHP since discharge from inpatient hospitalization. Pt has indicated he has not been consistently medication compliant since inpatient discharge on 02/24/20, missing at least two days. Denies use of energy drinks since yesterday. Continues to present with manic type symptoms and is often struggling to remain focused enough to contribute effectively and on topic to group. Limited insight into how his drew presents to others and impacts his functioning. He reports motivation to improve sx enough to return to work and prevent rehospitalization. Denies any impulsivity, excessive spending, or psychosis. Reports some delusional thinking patterns, though expresses insight into such. Appears insightful regarding consequences of toxic behaviors and impact on overall mental health. Will continue in PHP to prevent decompensation, improve functioning to prevent rehospitalization, and to stabilize mood.
--- NOTE | 2020-03-01 15:28 | BH.COMM_ITS ---
Communication Note - Communication with Client Communication Note: Pt attended group today virtually. This was pt's first session. Group staff reported that pt presented as manic and was inappropriate at times (lying on bed, putting on jennifer cart glassess, and off-topic. Was not following group rules. This led to a breakout session with his therapist so as not to distract peers any longer. Pt admitted to staff that he had not taken his medications last night and did not sleep. This is 2nd day of medication non-com pliance. Strongly suspected that pt has been non-compliant with medications since d/c from psych unit on 02/24/20. Prognosis is poor and pt more than likely continue to decompensate. Call placed to pt's mother. Discussion on strategies to more closely monitor pt to ensure compliance with medications, avoidance of alchohol/energy drinks, and to ensure healthy sleep routine. Mother agreed to discuss with pt's father and call therapist back. Pt is scheduled to attend [facility] again tomorrow. Will continue to monitor. Scheduled to meet with psychiatry tomorrow.
--- NOTE | 2020-03-01 15:32 | BH.MTP_ITS ---
Master Treatment Plan - Patient Information Program Physician:: Dr. Ramya Peters Primary Therapist:: MARIA Mckeon - Psychiatric Diagnoses Psychiatric Diagnoses:: Bipolar 1 disorder, most recent episode manic, severe with psychosis; anxiety disorder, NOS; alcohol use disorder; caffeine use disorder Diagnosis Code(s):: F 31.1 - Estimated LOS Estimated LOS (in weeks):: 2 Problem/Goal #1 - Problem/Goal #1 Stated Goal:: Client will increase mood stability and achieve controlled behavior due to Bipolar I through Intensive Outpatient Services. Description of Barriers: Hx of non-compliance with medications and treatment. Pt struggles with letting go of benefits to drew. Pt struggles with resistance to treatment. Hx of impulsivity. Reports high motivation for improving mental health although continues to struggle with application of tx recommendations. Functional Impact: The patient is a 29-year-old male with a history of bipolar 1 disorder, manic with psychosis, alcohol use disorder, and caffeine use disorder who was admitted to the inpatient psychiatric unit at [facility] on February 16, 2020 and discharged on February 24, 2020. This was the patient's third psych admit in 6 weeks. The patient was previously in the IOP program and was escorted to the ER from the [facility] IOP program. He participated in IOP tx from January 31 to February 16, 2020. At the time of first admission patient presented as severely manic and psychotic. At this admission, pt endorses poor decision making specifically that of not sleeping or taking his medications, anxiety, impulsivity, irritability, paranoia, delusional thoughts, rapid speech, and tangential thoughts impacting ability to function at baseline. Pt had been consuming an excess of caffeine prior to admission and reports he has not consumed an energy drink since 02/29/20. Goal Relevant Strengths/Supports: Pt reports motivation to change, indicates strong support from his family, aimiable - Objectives Objective #1 Stated Objective: Client will identify 2-3 triggers that resulted in an elevated mood and take steps to address these triggers. Interventions: Through individual and group counseling will help client develop insight into mental health triggers as well as ways to address these triggers. Discharge Criteria: Client will have achieved this objective when able to verbalize at least 2 triggers that result in an elevated mood and ways to mitigate these triggers. Target Date: 03/16/20 Review Date: 04/15/20 Objective #2 Stated Objective: Client will learn 2-3 coping strategies to utilize when in an elevated or depressed mood. Interventions: Therapist will help client find internal solutions to mental health struggles and aid client in connecting triggers with coping strategies that will help stabilize mood. Discharge Criteria: Client will have achieved this objective when able to verbalize and has utilized at least 2 coping strategies that have helped stabilize mood. Target Date: 03/16/20 Review Date: 03/09/20 Problem/Goal #2 - Problem/Goal #2 Stated Goal:: Client will reduce psychosis and irrational thoughts due to Bipolar Disorder through IOP services. Description of Barriers: Hx of non-compliance with medications and treatment. Pt struggles with letting go of benefits to drew. Pt struggles with resistance to treatment. Hx of impulsivity. Reports high motivation for improving mental health although continues to struggle with application of tx recommendations. Functional Impact: The patient is a 29-year-old male with a history of bipolar 1 disorder, manic with psychosis, alcohol use disorder, and caffeine use disorder who was admitted to the inpatient psychiatric unit at [facility] on February 16, 2020 and discharged on February 24, 2020. This was the patient's third psych admit in 6 weeks. The patient was previously in the IOP program and was escorted to the ER from the [facility] IOP program. He participated in IOP tx from January 31 to February 16, 2020. At the time of first admission patient presented as severely manic and psychotic. At this admission, pt endorses poor decision making specifically that of not sleeping or taking his medications, anxiety, impulsivity, irritability, paranoia, delusional thoughts, rapid speech, and tangential thoughts impacting ability to function at baseline. Pt had been consuming an excess of caffeine prior to admission and reports he has not consumed an energy drink since 02/29/20. Goal Relevant Strengths/Supports: Pt reports motivation to change, indicates strong support from his family, aimiable - Objectives Objective #1 Stated Objective: Client will identify and replace 2-3 distorted thinking patterns that mediate feelings of paranoia and result in delusional thinking. Interventions: Therapist will assist client in developing an awareness of the cognitive messages that reinforce delusional thinking. Therapist will also assist client in challenging distorted and irrational thinking patterns. Discharge Criteria: Client will have achieved this goal when can identify at least 2 irrational and delusional thinking patterns, replace irrational thinking with healthier, more realistic messages and state no longer having delusional thoughts or experiencing psychosis. Target Date: 03/16/20 Review Date: 03/09/20
--- NOTE | 2020-03-02 09:16 | BH.NA ---
Physical Data - Vital Signs Pulse Rate: 100 Respiratory Rate: 16 Blood Pressure: 138/80 - Height/Weight Height: 1.82 m Weight:: 102.058 kg Weight in Pounds: 225.0 lbs Current Medication Compliance - Medication Compliance Do you take your medication as prescribed?: No - client states he has a strong dislike for his Risperdal Nutritional History - Appetite Nutritional Instructions:: If client shows signs of a swallowing problem, weight change of 10 pounds or more in the last month, or is on a diabetic diet, the physician will review and request a dietitian consult, as appropriate. All unintentional weight loss will be referred to the physician for decision on need for dietitian consult. Describe your appetite:: Good Additional nutritional information:: client states he has noticed recent weight gain. Client goes off on tangent about how he does not fit into clothes he has at home and how he wishes to lose weight. Client states he thinks his Risperdal is making him gain weight and he is not happy about that. Functional Assessment - Sleep Pattern Describe any problems with sleeping: Client states he usually gets 6-7 hours of sleep per night. Client states the last few nights have been challenging to sleep, and he feels this is what is making his mood worse. Client reports yesterday he slept 6 hours total. - Activities Motor Activity:: Hyperactivity Comments:: client somewhat jittery at times during assessment Sensory/Communication Assess - Communication Problems Do you have difficulty understanding what people are saying?: No What is your primary language?: Lao Medical Problems/History - Pain Assessment Do you have acute or chronic pain?: No Surgical History - Surgical History Have you had any surgeries? If so, list type and date:: No Substance Abuse - Substance Abuse Please describe substance abuse in the last 30 days:: Client states since his last hospitalization at [facility] where he was discharged 02/24/20, he is currently drinking 1-2 beers per day. Client states Being on my depakote, I can't usually drink more than that. Client states he is an everyday tobacco smoker of cigarettes. When asked how many cigarettes he smokes per day, client went on long tangent and was unable to come back to question. Client states he has used marijuana 4-5 times total in his life, last use 5 years ago. Client states he drinks less than 200mg of caffiene per day, stating he usually drinks 2-3 pops per day. Client denies energy drink use at this time. Client states he has made an agreement with his therapist's [facility] and Carina from [facility] that he will not drink energy drinks for the next 2 weeks to prove I'm not addicted to them. Mental Status Summary - Mental Status Significant Findings/Observations on Appearance and Mood:: Client is alert and oriented x 4. Client is casually groomed. Client is cooperative during assessment, makes eye contact with conversation. Client is slightly hyperactive, taping arms on legs at times during conversation. Client's speech is coherent and spontaneous, usually a normal rate but client very tangential. Client makes loose associations during conversation, talking at length about things that do not pertain to what was asked. Client appears somewhat anxious. Denies SI. Client with overall fair attention, sometimes did answer questions while going on tangent in conversation but did need refocused several times. Client denies delusions/hallucinations at this time, but staff report delusions as recently as yesterday. Suicide Assessment - Suicidal Ideation Are you currently or have you been suicidal in the past?: No Suicidal Intentional Rating Scale (SIRS): No suicidal thoughts (past or present) Physician Notification: If Active suicidal thoughts/Will not contract for safety is checked, contact physician and document in the Physician Notification section below. Past Psychiatric History - Treatment Hx Past Psychiatric Medications:: client does not know name of past medication he was on for bipolar Age of first mental health symptoms: Client was diagnosed with bipolar in April of [address] at [facility] in [place]. Describe (age, circumstance, etc) any past hospitalizations: Client was hospitalized at [facility] in April 2018 when diagnosed as bipolar. Client recently hospitalized at [facility] 01/02/20 for drew and again in late December 2019 for drew. Client was recently hospitalized from 02/16/20-02/24/20 at [facility] again for drew. Current providers for mental health treatment (counselor, psychiatrist, vocational case manager, etc.): [facility] for therapy and Marcy Ness NP for psych at [facility]. Fall Risk Assessment - Age Age: Less than 60 - Mental Status Mental Status: Willing & able to ask for assistance when needed - Physical Status Physical Status: No problems - Impairments Impairments: None - Elimination Elimination: Continent AND independent - Gait or Balance Gait or Balance: Walks independently - Hx of Falls History of falls in the past 6 months: No known history - Medications/Substances Psychotropics:: Mood stabilizers, Anticholinergics (e.g. benztropine) Medications/substances used within the past 24 hours or ordered to administer: 1-2 of the medications/substances listed above - Total Score Total Points:: 1 RN Summary of Impressions - Impressions Recommendations: Include psychiatric and medical issues, treatment planning recommendations, and discharge planning needs. Impressions: Psychiatric Issues: Bipolar 1 disorder most recent episode manic severe with psychosis. Anxiety disorder, NOS. Alcohol use disorder. Caffiene use disorder. - Level of Care How do the client's current symptoms and functional deficits support need for this level of care?: Client was hospitalized at [facility] twice in December 2019 and again in late January of 2020, recently being discharged 02/24/20. Client was hospitalized for drew related to his bipolar. Client has had delusions/hallucinations in the past with drew. Client states he feels his drew has improved after the last hospitalization, but client still appears hypomanic and very tangential in conversation during assessment. 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 Client states he is not drinking energy drinks at this time, but states he is drinking 1-2 beers per day and still drinking caffiene on a daily basis. Client reports his vivian to medication compliance is a schedule, and goes off on tangent about wanting to talk to his mom in person and not on the phone. Client reports taking his Risperdal makes him angry because he believes it is the reason for his weight gain. PHP will promote gains and prevent further decompensation while providing social support and skills training.
[2020-03-02 10:28] VITALS: BP 138/80; PULSE 100; RESP 16
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
--- NOTE | 2020-03-02 12:25 | BH.DR.ITP ---
Initial Treatment Plan - Patient Information Visit Information: ADMISSION DATE: EXPECTED LOS: 4-6 weeks - Problems/Symptoms Problem #1:: Zara Symptom:: Grandiosity, racing thoughts, decreased sleep, tangential thinking, hypertalkative, noncompliance with medications Problem #2:: Psychosis Symptom:: history of delusions of grandeur, reference, and paranoia.
--- NOTE | 2020-03-02 13:10 | BH.MDN_ITS ---
Multi-Disciplinary Note - Note 45-min Individual Time Started:: 11:35 Date: 03/02/20 Purpose of session/treatment goals addressed:: Review current symptoms and progress since last session. Continuing to monitor and encouragement health coping decisions, discussed importance of medication compliance. Eye Contact:: Good Motor Activity:: Restless Appearance:: Casual Speech:: Tangential, Rambling Mood:: Euthymic, Irritable Affect:: Full Thoughts:: Linear, Logical, Racing, No evidence of hallucinations/delusions noted Staff Interventions:: Utilized OR to elicit change behaviors and establish small daily goals for improving medication consistency. Provided education on medication management. Gently challenged use of distorted thought patterns. Client Response:: Pt receptive of session, engaged throughout. He reports that he slept only 3 hours yesterday as he had been playing videogames with a friend which did not start until 10pm. Pt continues to rationalize poor decisions regarding his sleep. Pt attempted to justify staying up most the night playing video games by stating ?I never get to play with my friend Leodan, So I couldn?t just get off when I saw he was online?. Pt appears to place socialization over healthy sleep and spending habits as he has also reported purchasing large items for friends without planning to be repaid in the past. Continues to reports beliefs that he only needs 1.5 ours of sleep per ?sleep cycle? to be rested. Does not respond well to being challenged on this and often becomes defensive. Continues to express resistance to taking his psychiatric medications as prescribed and reports fears they make him gain weight and believes he does not need them. However, following the discussion with program psychiatrist today, pt reports increased willingness to ?give it a shot?. Reports struggling to remember or hold himself accountable for taking his medications. Open to checking-in regularly with this therapist to hold himself accountable and identified that emailing a video of himself taking his medication each night would be best for him to ?prove I actually took them?. Pt set a reminder in his phone to do so. Continues to report drinking alcohol nights, approx.. 1-2 beers. Denies energy drink consumption since [facility] admission. Commended on progress regarding caffeine reduction. Risks/Concerns:: No concerns noted. Pt was less tangential and restless than yesterday, though continues to struggle to remain on topic and often makes inappropriate jokes or comments unrelated to discussion. No psychosis or delusions noted today. Denies SI, plan, or intent. Progress Toward Goals/Plan:: Majority of the session is spent challenging rationalizations to continue with unhealthy coping skills (caffeine consumption, poor sleep, non-compliance with medications). Reports he is not drinking any energy drinks however continues to struggle with consuming large amounts of caffeine. Remains noncompliant with medication due to reported fear of gaining weight. Willing to sending a nightly email indicating medication. Limited progress noted. Will continue with individual sessions to continue to monitor mood, challenge unhealthy decision making, and encourage compliance with medications. Time Stopped:: 12:15
--- NOTE | 2020-03-03 13:56 | BH.MDN ---
Multi-Disciplinary Note - Note 45-min Individual Time Started:: 14:06 Date: 03/03/20 Purpose of session/treatment goals addressed:: Purpose of this session was to address current symptoms, stressors, and progress since last session. Additional topics included continued monitoring and discussing the idea of pt staying with his mother to encourage a better sleep schedule and improve stabilization. Eye Contact:: Good Motor Activity:: Restless Appearance:: Casual Speech:: Pressured, Tangential, Rambling Mood:: Euthymic, Irritable Affect:: Full Thoughts:: Linear, Flight of ideas, No evidence of hallucinations/delusions noted Staff Interventions:: Utilized GA to elicit change behaviors as well as identify and begin to address barriers to progress. Gently challenged use of distorted thought patterns. Worked with pt to begin creation of a decisional balance regarding living with his mother. Client Response:: Pt receptive of session, engaged throughout. He reports sleeping somewhat better than previous night as he went to bed at 1am rather than receiving only 3 hours of sleep for the whole night. Continues to believe this is an appropriate amount of sleep. Discussed at length the importance of sleep and impacts lack of sleep has on mental health stability. Continues to report beliefs that his current sleep schedule is not impacting his mental health. Pt did however follow through with sending an email to check-in on medication compliance for yesterday. Additionally included beverage consumption for the day which continues to be high in caffeine, however did not include energy drinks. Continues to report he does not feel 1-2 beers per night is a problem for him. Discussion on risks of relying on alcohol to sleep, though pt appears to believe this is not a concern for him. Pt shared going to his mother?s house to check-in yesterday and quickly became irritated by her as he reports feeling she was trying to ?control? his behaviors and was nagging him about making healthier choices. Discussed that his outpatient counselor and his mother feel it would be best if he moved in with his mother while working on his mental health. Pt expressed resistance to this, noting a need for his own space and privacy, as well as reported that he feels he would fight too much with his mother. Willing to discuss potential benefits to his mental health such as increased support, medication accountability, and regulating his sleep schedule. Pt able to see the potential benefits, however continues to report resistance and expressed he believe he would be able to reach his goals independent of living with his mother. Willing to compromise and complete daily check-in?s with her the next few weeks. Risks/Concerns:: No concerns noted. Pt continues to struggle to remain on topic and often makes comments unrelated to discussion. No psychosis or delusions noted today. Denies SI, plan, or intent. Progress Toward Goals/Plan:: Majority of the session is spent challenging rationalizations to continue with unhealthy sleeping pattern and impact of substances on sleep schedule. Reports he continues with not drinking any energy drinks, though maintains consuming caffeine though at a slight reduction from previous date. Remains compliant with medication since yesterday. Continues to resist help from supports in improving overall mood stability. Some progress noted. Will continue with individual sessions to continue to monitor mood, challenge unhealthy decision making, and encourage compliance with medications. Time Stopped:: 14:51
--- NOTE | 2020-03-04 15:26 | BH.MDN ---
Multi-Disciplinary Note - Note 45-min Individual Time Started:: 13:06 Date: 03/04/20 Purpose of session/treatment goals addressed:: Purpose of this session was to address current symptoms, stressors, and progress since last session. Additional topics included continued monitoring, revisiting the topic of pt staying with his mother, and discussing the pt desire to date on mental health progress. Eye Contact:: Good Motor Activity:: Restless Appearance:: Casual Speech:: Appropriate, Rambling Mood:: Euthymic, Anxious Affect:: Full Thoughts:: Linear, Logical, Other - tangential, No evidence of hallucinations/delusions noted Staff Interventions:: Utilized MO to elicit change behaviors as well as identify and continue to address barriers to progress. Gently challenged use of distorted thought patterns. Worked with pt to review previously discussed decisional balance regarding living with his mother. Addressed pt desire to begin dating and the potential consequences of doing so on mental health and treatment goal progress. Client Response:: Pt receptive of session, engaged throughout. He reports continuing to feel he is sleeping better throughout the night, though consistently reports not going to bed until after midnight. Pt continues not to think this is negatively impacting his mental health, concentration, or ability to complete daily responsibilities to following day. Pt additionally continues to report drinking at least 2 alcoholic beverages daily. Reported that although he does not feel this is an issue nor does he believe alcohol has any impact on his symptoms of drew, he is willing to stay over night at his mother?s house this weekend if he decides to drink. Reported feeling this will help ensure his own safety, prevent form consuming additional alcohol as he usually drinks more on the weekend, and reduce his mother?s anxiety about him driving or being alone after drinking. Commended pt for harms reduction behaviors and taking precautions. Attempted to continue to challenge pt on use of justifications for drinking behavior, however pt continues to report this is not an area he is concerned about. Went on to discuss spending time talking to a female who messaged him on Facebook last night. Reports that he ended up speaking to her for over three hours and was excited to have a positive person to interact with. Therapist inquired as to the nature of the relationship in which pt reports is ?just friends?. Pt as a history of increased manic symptoms and paranoia following the end of romantic relationships. Therefore, pt and therapist spent time discussing the importance of reaching a consistent baseline and maintaining stability prior to pursuing dating. Pt initially struggled with recognizing potential costs as he was fixated on not wanting to be lonely and a desire for additional support. However, with additional discussion was able to provide insight that he may benefit from taking time to focus on himself and his goal of returning to work successfully rather than risk becoming distracted by other things that could disrupt progress. Risks/Concerns:: No concerns noted. Pt continues at times to struggle to remain on topic and often makes comments unrelated to discussion, though displaying some improvement in this area. No psychosis or delusions noted today. Denies SI, plan, or intent as of this date 03/04/20. Progress Toward Goals/Plan:: Majority of the session is spent challenging rationalizations to continue with drinking behaviors as well as discussing pt desire to begin dating. Reports he continues with not drinking any energy drinks, though continues to drink alcohol daily which has triggered manic sx in the past. Remains compliant with medication since Saturday. Some progress noted in pt reported willingness to stay at his mother?s house this weekend if drinking, as well as increased insight in potential impact of dating on treatment progress. Willing to refrain from doing so until consistently able to maintain mood stability. Will continue with individual sessions to continue to monitor mood, challenge unhealthy decision making, and encourage compliance with medications. Time Stopped:: 13:51
--- NOTE | 2020-03-07 15:26 | BH.MDN_ITS ---
Multi-Disciplinary Note - Note 60-min Individual Time Started:: 10:33 Date: 03/07/20 Purpose of session/treatment goals addressed:: Purpose of this session was to address current symptoms, stressors, and review progress since last session. Additional topics included continued monitoring and discussing current behaviors promoting progress as well as those that may impede continued progress. Eye Contact:: Good Motor Activity:: Restless Appearance:: Casual Speech:: Appropriate, Rambling - though improved from prior sessions Mood:: Euthymic, Anxious Affect:: Full Thoughts:: Linear, Logical, No evidence of hallucinations/delusions noted Staff Interventions:: Asked open ended and furthering questions to elicit additional information regarding current symptoms, stressors, and treatment progress. Worked with pt to identify areas in which he is making progress and skills that he is utilizing to continue to do so. Utilized MN to elicit change behaviors as well as identify and continue to address barriers to progress. Gently challenged use of distorted thought patterns. Client Response:: Pt receptive of session, engaged throughout. He reports having had a positive weekend as he was able to spend some time completing resp onsibilities around the house such as cleaning his bedroom. Additionally, noted spending time cooking over the weekend rather than eating fast food or pizza which pt notes made him feel healthier and more accomplished. Expressed spending some time at his mother?s house and had a positive experience helping his step- father work on their computer. Pt indicated that this is something he has been putting off for 6 months as in the past this would have been something that made him more irritable and resulted in a fight. However, was able to prevent an argument as he felt more capable of managing his emotions and did well to remind himself to take breaks and deep breaths when agitated. Pt went on to indicate that his mother had expressed gratitude and shared she is beginning to see positives changes in his overall mental health. Pt discussed feeling proud as a result and more motivated to continue making improvements with his mental health. Pt however continues to struggle with follow-through in regards to small goals he has set for himself to improve finances and decrease potential impulse triggers. Pt expressed he has not yet cancelled his second phone line or the multiple dating websites that pt continues to be charged monthly fees for on his credit cards. Struggles with justifying putting these tasks off by indicating he is too busy, the process was more difficult than expected, or that he was unable to complete the process online. Pt encouraged to reach out to his mother for further assistance in the process as he reports these fees continue to be a significant and unnecessary stressor. Risks/Concerns:: No concerns noted. Pt continues at times to struggle to remain on topic and often makes comments unrelated to discussion, though displaying some improvement in this area. No psychosis or delusions noted today. Denies SI, plan, or intent as of this date 03/07/20. Progress Toward Goals/Plan:: Some limited progress made. Pt reports he was able to complete several responsibilities such as cleaning in which he had previously put off or avoided. Additionally, reports increased use of health emotion regulation skills when communicating with his family during times of potential stress. Pt has continued to remain medication compliant and is limiting caffeine intake to 200mg or less a day. Pt continues to struggle with daily substance use although maintains that alcohol has not been impacting his sleep routine or mood. Continues to struggle with consistent use of coping skills and healthy decision making. Will continue with individual sessions to continue to monitor mood, challenge unhealthy decision making, and prevent decompensation. Time Stopped:: 11:31
--- NOTE | 2020-03-08 15:27 | BH.MDN ---
Multi-Disciplinary Note - Note 45-min Individual Time Started:: 10:20 Date: 03/08/20 Purpose of session/treatment goals addressed:: Purpose of this session was to address current symptoms, stressors, and review progress since last session. Additional topics included continued monitoring, discussion on impacts of increased caffeine use on his mental health, and aided pt in problem solving current financial stressors. Eye Contact:: Good Motor Activity:: Appropriate, Restless Appearance:: Casual Speech:: Appropriate Mood:: Euthymic, Irritable Affect:: Full Thoughts:: Linear, Logical, Flight of ideas, No evidence of hallucinations/delusions noted Staff Interventions:: Therapist asked open ended and furthering questions to elicit additional information regarding current symptoms, stressors, and treatment progress. Worked with pt to address reported desire to return to prior levels of caffeine consumption and identify potential consequences of doing so on his physical and mental health. Gently challenged use of distorted thought patterns. Provided supportive feedback and encouragement. Utilized VT techniques to encourage change behaviors, continue to address barriers to progress, and aid pt in problem solving strategies for managing financial stressors. Gently challenged use of distorted thought patterns. Client Response:: Pt receptive of session, engaged throughout. He reports he had a positive evening as he was able to hangout with a friend and help them work on their car. Pt expressed that it had been nice to ?catch up with an old friend? and indicated his mood had been more positive as a result. Pt went on to indicate that this friend had been someone he had previously been in the habit of drinking multiple energy drinks with and discussed a desire to do so when hanging out with him. Shared feeling frustrated that others are able to consume substances like energy drinks and alcohol without receiving push back or concern from others. Pt noted ?I don?t like not being able to do things?. Willing to challenge this by examining instances in which others may need to curb their behaviors when those behaviors begin to negatively impact their mental health and relationships. Struggled at times with justification, though did well to recognize that in order to continue making progress refraining from energy consumption would be beneficial. Additionally, pt agreed to abstain from alcohol consumption as he wants to ?prove that it?s not a problem?. Willing to abstain for remainder of time in IOP treatment. Went on to discuss that his primary stressor continues to be finances and ongoing issues with canceling subscriptions for dating services he had signed up for online. Irritatedly showed therapist his phone indicating continued spam emails from the sites as a result. Upon further inquiry it appears he had actually subscribed to multiple porn accounts rather than dating services. Pt shared not knowing this and indicated he had signed up for the services while manic. Willling to brainstorm potential options for canceling the services. Pt agreeable to work with his mother on canceling all his credit cards aside for one and adjusting the spending limits to prevent excessive purchases in the future. Pt shared he does not want to be in as much debt as he has aquired in the past and agreed that it would be best to begin creating financial boundaries for himself. Risks/Concerns:: No concerns noted. No psychosis or delusions noted today. Denies SI, plan, or intent as of this date 03/08/20. Progress Toward Goals/Plan:: Some progress made. Pt reports recent increased urges to return to prior daily energy drink consumption, however did well to refrain from doing so. Able to recognize the progress he has made in stabilizing his mood since reducing consumption and agreeable to continue to do so. Additionally, pt notes a desire to abstain from alcohol consumption as he wants to ?prove that it?s not a problem?. Continues to struggle with a consistent routine and application of healthy skills. Though is making progress in regard to medication compliance and willingness to reach out for help with finances from his supports. Will continue with individual sessions to continue to monitor mood, challenge unhealthy decision making, and prevent decompensation. Time Stopped:: 11:30
--- NOTE | 2020-03-09 12:19 | PCM.BH.PN ---
Progress Note Progress Note: History of Present Illness/Interim History: [] Patient is a 29-year-old male who is seen in follow-up at the [facility] behavioral health IOP program. Patient was last seen by me 1 week ago and is being treated for bipolar 1 disorder, manic with psychosis. The patient was discharged from [place] on February 24, 2020. He has had issues with compliance with medication and overuse of energy drinks and caffeine. Patient states that he has been compliant with his medication and has used a pill organizer in order to remember to take his medication. He says he has not missed any doses for the past week. He states that he feels much better and understands the need to take his medication. He had dinner last night with his father and he has been seeing his mom regularly. According to his mother he spent $3000 last week on his credit cards. He states that he gave his credit cards to his mother and has not been spending any money. In addition he has not used any alcohol since 2 days ago. He is limiting his caffeine use to 1 to 2 cups of coffee a day. And he has not used any energy drinks for the past 2 weeks. He describes his mood as much more stable. He he says he feels that he is able to focus better on the list of things that he wants to accomplish each day. He credits his therapist (Crissy) with helping him understand the importance of following our recommendations. He said his sleep is improving and is now about 7 to 8 hours at night. He notices that his thoughts are slower and at a more normal rate since he stopped the energy drinks and began taking his medications regularly. Overall he feels much better this week and feels he is benefiting from the partial hospitalization program. Current Psychiatric Medications: [] Depakote ER 1500 mg p.o. at bedtime daily; Risperdal 4 mg p.o. nightly; Vistaril 50 mg p.o. nightly Mental Status Examination: [] Patient is a 29-year-old male who appears normal for stated age. He is casually dressed and groomed with good hygiene and is cooperative during the interview. He has no psychomotor agitation or retardation. He did not appear to be guarding or minimizing like he did last appointment. His speech is normal rate and rhythm with no pressure. At times he does still speaks somewhat excessively but only a few times during the interview. He is not tangential any longer. His mood appears euthymic today. His affect is full. Thought process: Goal-directed and organized. Thought content: No evidence of hallucinations or delusions. No evidence of suicidal or homicidal ideation. Judgment: Limited. Insight: Improving. Impulsivity: Moderate. Diagnoses: [] [place] I: [] Bipolar 1 disorder, most recent episode manic, severe with psychosis (resolving); anxiety disorder NOS; alcohol use disorder; caffeine use disorder [place] II: [] Deferred [place] III: [] Negative [place] IV:[]] Primary support and work and financial issues Plan: [] The patient will continue the partial hospitalization program at [facility] as the structure, support, education, group and individual therapy will hopefully prevent worsening of the patient's symptoms which could require rehospitalization. He felt safe during the interview and if at any time he does not feel safe he will let us know or go to the emergency room. The risk, options, and possible side effects and complications of the medication were discussed with the patient and he understands and accepts these. He agrees to avoid all alcohol use. In addition he agrees to avoid all energy drinks and limit his caffeine use to 1-2 drinks a day. He appears to understand the need to stay on his medications so that he avoids drew with psychosis. The patient will continue his medication on the current dosing regimens. Valproic acid labs were ordered today. He will continue to follow-up with his outpatient psychiatric and medical providers. I will see the patient in follow-up in 1 week.
--- NOTE | 2020-03-09 15:56 | BH.MDN ---
Multi-Disciplinary Note - Note 45-min Individual Time Started:: 12:20 Date: 03/14/20 Purpose of session/treatment goals addressed:: Purpose of this session was to review current symptoms, stressors, and progress since last session. Another purpose was to discuss pt motivations for maintaining gains made and continue to promote mood stability. Additional topics: ongoing barriers, reviewed self-soothing skills pt may apply upon returning to groups. Eye Contact:: Good Motor Activity:: Appropriate Appearance:: Casual Speech:: Pressured, Rambling Mood:: Euthymic Affect:: Full Thoughts:: Linear, Racing, No evidence of hallucinations/delusions noted Staff Interventions:: Therapist asked open ended questions to elicit information regarding pt current symptoms, stressors, and perception of treatment goal progress. Utilized VT techniques to identify barriers to ongoing progress, as well as continue to promote application of healthy change behaviors. Provided supportive feedback and commended pt on gains made. Challenged use of rationalizations and distortions. Provided psychoeducation on impact of distortions on relapse and maintaining unhealthy behaviors. Used strength?s based approached to assist pt in identifying small goal to eliminating unnecessary barriers to progress. Reviewed self-soothing skills pt may apply upon returning to groups. Client Response:: Pt reports that he is feeling positive on this date and indicated some relief after meeting with program psychiatrist as he had been able to clear up medication confusion regarding whether his Vistaril is PRN or to be taken nightly. Shared plans to begin taking nightly as prescribed. Pt reports feeling more focused and less distracted today which is consistent with observed behaviors. Less tangential and more able to remain on topic throughout session. Pt expressed following through with his homework of removing triggers/means for engaging in impulsive spending behaviors. Noted that he successfully paid off and locked all open credit card account leaving only his debit card for necessary daily purchases. Pt indicated knowing that this will help him to ?get back on track? and work towards longer term goals of returning to work and creating new relationships by maintaining stability and preventing another episode of unmanageable drew or psychosis. Sheared he did not want to ?have to resort to this? but additionally gave all his credit cards to his mother for safe keeping as he continues to work on better regulating his moods and maintaining stability. Expressed feeling proud and accomplished, especially after receiving praise from his mother for taking strides to make healthier decisions. Continues to struggle with a desire to mcdaniel himself to take larger steps towards progress than appropriate, such as returning to work right away. Willing to discuss and create small steps toward reaching this goal. Pt identified canceling his extra cell phone account and being able to return to group therapy sessions without becoming distracting to self/others as appropriate steps. Will cancel [place] phone account as homework. Given current gains, Therapist agreed to allow pt return to group on a trial basis and spent remainder of session reviewing group expectations, appropriate behaviors, and self-soothing skills he may use when feeling restless. Risks/Concerns:: No concerns noted. Pt was less tangential and restless than yesterday. No psychosis or delusions noted today. Appears more on-topic. Remains medication compliant. Progress Toward Goals/Plan:: Progress noted as pt has successfully refrained from energy drinks for a week and a hald and is on day 2 of sobriety. He was willing to follow through with freezing all extra credit cards and giving these to his mother to eliminate excess spending. Continues to struggle with impulsivity and distorted thinking patterns though is making progress in finding healthier activities to do at home rather than going to buy something to occupy his time. Will continue PHP tx to prevent decompensation and promote mood stability. Time Stopped:: 13:06
--- NOTE | 2020-03-10 10:11 | BH.SGPN.GN ---
Behaviors/Verbalizations/Mental Status: []Pt eye contact good, casually dressed, motor activity appropriate, speech normal rate and tone, mood euthymic, congruent affect, thoughts linear and intact, no evidence of delusions or hallucinations. Client Response/Progress/Benefit: []Client was an active participant AEB completing worksheet, providing some input, and listening attentively to peers. Improved ability to self-regulate and remain on topic. Client did well to work with the group to define anger and its causes, as well as the potential consequences of unhealthy management of anger. These included: losing relationships, guilt, damaged property, increased rumination, and other?s avoiding us. He nodded as others personal examples regarding how their anger response has negatively impacted them in the past as well as share relevant input during discussion which is a significant improvement. Worked with group to review common anger responses and shared that his common anger responses include: verbal and non-verbal changes, swearing, and tapping his feet. Appeared to struggle with identifying impact on his self and relationships this response has. Client appeared to benefit from psychoeducation on the negative impacts of unmanaged anger and increasing self-awareness of own anger signs. Progress noted as client reports increased ability to implement self-regulation skills as well as improved stability of mood. Will continue PHP tx to prevent decompensation, promote healthy change behaviors, and improve mood stability. Narrative Note: []
--- NOTE | 2020-03-10 11:08 | BH.SGPN.GN ---
Behaviors/Verbalizations/Mental Status: []Client alert and oriented, casually dressed and groomed. Eye contact good. Motor activity appropriate. Speech within normal limits. Affect congruent, mood euthymic. Thoughts linear, logical, no signs of hallucinations or delusions. Client Response/Progress/Benefit: []Client was an engaged participant throughout group AEB client providing input throughout discussion. Client contributed to the continued discussion of how people express anger as well as the underlying emotions of anger. Client could not identify his underlying emotions to anger, but he was able to identify healthy and unable responses to anger. Client helped the group identify common warning signs of anger such as; feeling hot, tense, headaches, and restlessness. Group brainstormed with group healthy coping skills to help manage anger which included: mindfulness, deep breathing, angry dancing, going outside, and progressive muscle relaxation. Client selected self-reflection and calling himself out when he ruminates as his coping skills to manage anger. Client appeared to benefit from brainstorming with the group potential strategies to manage anger in healthy ways. Recommended continued PHP level of care to prevent decompensation of mood symptoms, reduce impulsivity, and increase the use of healthy coping skills. Narrative Note: []
--- NOTE | 2020-03-10 13:32 | BH.MDN ---
Multi-Disciplinary Note - Note 45-min Individual Time Started:: 09:05 Date: 03/10/20 Purpose of session/treatment goals addressed:: Review current symptoms and progress since last session. Review calming skills and strategies for maintaining focus and self-regulating in group today. Eye Contact:: Fair - closing eyes at points in session Motor Activity:: Slowed Appearance:: Casual Speech:: Appropriate, Rambling Mood:: Euthymic - tired Affect:: Congruent Thoughts:: Linear, Logical, No evidence of hallucinations/delusions noted Staff Interventions:: Utilized OR to elicit change behaviors. Challenged unhealthy rationalizations. Reviewed with pt healthy regulation and coping skills. Created a plan for the afternoon. Client Response:: Pt reports that he is feeling more fatigued today than usual. Expressed that since clearing up confusion with the psychiatrist yesterday regarding his medications he was able to take all prescribed psychiatric medications; however, accidentally took two of the Vistaril rather than one. Shared that he believes this is contributing to his fatigue as he fell asleep ?immediately? following taking his medication last night. Though indicates this was not until 12-12:30am. Sleep routine continues to be difficult for pt to become consistent with. Often closing eyes during conversation and appearing to trail off at times in discussion. He reports feeling relieved since giving his credit cards to his mother yesterday but that his biggest stressor is now an second cell phone account he has but is not using and has been paying $50 for each month as a result. Expressed not canceling it as it has been ?low on my priority list until now?. Able to identify the consequences of maintaining the account on his finances as well as his mental health as this [employer] account had been a trigger during his last psychotic episode. Willing to cancel account as homework tonight. Pt is to begin attending groups again starting today. He was willing to review appropriate group behavior with therapist as well as agreeable to returning to group starting on an observational only basis. Reviewed self-regulating skills he can use to prevent interrupting others and maintain focus. Pt open to taking notes. Requested drinking tea in group as a means of maintaining calm as well. Will evaluate group participation in next session. Reports plans to begin yoga this evening as he had enjoyed the practice during his inpatient hospitalization. Risks/Concerns:: No concerns noted. Pt was less tangential and restless than earlier this week, however appeared fatigued AEB eyes closing in session. No psychosis or delusions noted today. Denies SI/HI planor intent. Remains medication compliant. Progress Toward Goals/Plan:: Progress noted. Pt appears much calmer and able to focus during session than in prior sessions. Able to remain on topic. Pt has made progress in better managing mood stability by remaining medication compliant, making efforts to reduce caffeine, temporarily abstain from alcohol, and take steps to improve financial planning. Would benefit from improving rational decision making and impulse control. Will continue PHP tx to prevent decompensation, maintain mood stability, and continue to promote medication compliance. Time Stopped:: 09:43
--- NOTE | 2020-03-11 10:15 | BH.SGPN.GN ---
Behaviors/Verbalizations/Mental Status: []Client alert and oriented, casual dress, hygiene tended to. Eye contact good. Motor activity appropriate. At times rambling with loose associations. Easily redirected. Affect congruent, mood dysthymic. Thoughts logical, no signs of hallucinations or delusions. Client Response/Progress/Benefit: []Pt responded well to session as evidenced by pt contributing to discussion and listening attentively to others. Pt engaged in discussion about the importance of addressing obstacles and how avoidance of obstacles makes the situation worse. Pt identified his current reality is starting to feel more stable with his mood, but recognizes still struggles with not following through with certain tasks. Pt stated his desired reality is to continue working on maintaining stability so he can get back to work. Pt seems to lack awareness of his current symptoms, not recognizing how his impulsivity continues to negatively impact functioning. Pt to continue PHP to improve mood stability, decrease impulsivity, and prevent decompensation. Narrative Note: []
--- NOTE | 2020-03-11 11:18 | BH.SGPN.GN ---
Behaviors/Verbalizations/Mental Status: []Client alert and oriented, casually dressed and groomed. Eye contact good. Motor activity appropriate. Speech rambling. Affect full, mood euthymic. Thoughts linear, logical, no signs of hallucinations or delusions. Client Response/Progress/Benefit: []Client was an active participant in group discussion and activity, did well to follow instructions during the activity. Engaged during activity and provided ideas on how to cope with internal barriers that keep clients stuck from moving towards goals. Some of client?s comments were off topic, but overall his contributions were positive. Barriers identified by the group included: lack of motivation, rumination, anxiety, negative thinking, limited supports, and lack of confidence. Strategies identified for overcoming these barriers included: meditation, strengthening old supports, thought challenging, opposite action, and positive self-talk. Client initially reported that he did not have any barriers, but after activity he realized he can improve his impulse control. Client selected that he wants to work practicing moderation in all areas of his life. Client shared ?I tend to work hard and play hard, which can result in crashing.? Benefited from group by identifying obstacles and solutions to desired reality. Client continues to struggle with limited insight to his mental health symptoms and maladaptive behaviors. Will continue PHP tx to prevent decompensation, improve mood stability, and reduce impulsivity. Narrative Note: []
--- NOTE | 2020-03-11 13:02 | BH.MDN ---
Multi-Disciplinary Note - Note 30-min Individual Time Started:: 12:35 Date: 03/11/20 Purpose of session/treatment goals addressed:: Review current symptoms and progress since last session. Continuing to monitor and encourage health coping decisions promoting continued improvements in mood stability. Additional topics included: practicing patience Eye Contact:: Good Motor Activity:: Appropriate Appearance:: Casual Speech:: Appropriate, Rambling Mood:: Euthymic Affect:: Full Thoughts:: Linear, Logical, Flight of ideas - less so than in prior sessions, No evidence of hallucinations/delusions noted Staff Interventions:: Utilized strengths based approached to commend pt on continued areas of progress as well as continue to elicit change behaviors. Applied RI techniques to aid pt in identifying barriers to progress and problem-solve healthy solutions to addressing barriers. Challenged unhealthy rationalizations. Provided support as pt completed small goal for financial stability in session. Aided pt increating a plan for the weekend. Client Response:: Pt reports that he is less tired today than yesterday and attributes this to taking a 3 hour nap following group yesterday. He shared that he felt more energized after waking and was concerned he would end up being up late as a result; however, found that he was able to go to sleep by 12:30am which is pt usual over the past two weeks. Continues to rationalize staying up late to play videogames with friends. Presents as less tired than in prior session. Continues to present as less tangential over the past 3 days. Able to maintain conversation without becoming overly distracted. Continues to do well to remain on topic and appropriate in group setting over past two days. Pt expressed that he has continued to do well with limiting caffeine and continues to follow through with tracking daily caffeine intake. Additionally reports he has not had any alcohol since discussing cutting out alcohol with this therapist on 03/07/20. Willing to extend caffeine monitoring and daily limit of ~200mg for remainder of time in treatment. Pt went on to indicate that he had not been able to successfully cancel his second cellphone account as discussed in prior session. Shared that this was due to ?getting the run around? from [employer] and that he was told he is not able to cancel his account. Pt struggles with creating justifications for why he is unable to cancel unnecessary purchases, but ultimately appear to struggle with maintaining patience in order to go through the cancelation process. Expressed ?I was going to just stop paying it so they would shut off my service?. When challenged on potential consequences of doing so, pt appeared to believe he would not face repercussions for not paying this bill. Willing to cancel phone account in session. At times expressed wanting to hang-up and ?try again later? when becoming frustrated with waiting. Expressed ?I?ve practiced enough patience in my life lately?. Open to being challenged and discussing importance of building on ability to remain pt in order to reduce impulsivity. Remainder of session spent discussing plan for weekend which included starting yoga as he had not done so yesterday as planned, clean his bedroom, and janessa with the 3-D printer he owns. Agreeable to not buying new printer parts. Risks/Concerns:: No concerns noted. Pt was less tangential and restless than earlier this week. No psychosis or delusions noted today. Appears more rested AEB no blood-shot eyes and not closing eyes during the session. Able to remain focused Progress Toward Goals/Plan:: Pt appears to be making more consistent progress AEB maintaining caffeine limitations, agreeing to remaining sober throughout next two weeks, and following through with canceling his credit cards so he can better monitor and prevent high risk spending. Pt continues to struggle with unnecessary and impulsive spending which he often rationalizes. Continues to struggle with low motivation to complete homework assigned. Appears more on topic and has successfully attended group sessions over the past two days. Has remained medication compliant on all three medications. Will continue PHP level of care to prevent decompensation, continue to monitor, and promote healthy coping behaviors.
--- NOTE | 2020-03-14 09:02 | BH.SGPN.GN ---
Behaviors/Verbalizations/Mental Status: []Client alert and oriented, casual dress, hygiene tended to. Eye contact good. Motor activity appropriate. Speech within normal limits. Affect congruent, mood euthymic. Thoughts linear, logical, no signs of hallucinations or delusions. Reviewed client's daily symptom tracker, no risk for suicidal ideation, plan, or intent as of 03/14/20. Client Response/Progress/Benefit: []Client responded well to session, more on topic today and providing supportive statements. Client reports feeling fantastic today. Client reported he has been following recommendations provided by his individual IOP therapist to reduce his caffeine intake. Client stated because he has been cutting his caffeine he reports belief he is calmer. Client's other mental health win today is that he spent time with a friend yesterday and they went motorcycle riding. Client shared he has not gone for a ride in a long time, so this was a big win for him. Client denied that he had any stressors today. Client has a history of limited insight to his mental health symptoms, stressors, and triggers which in the past has led to decompensation. At this time, client has been reporting medication compliance and more consistent follow through with IOP recommendations which is positive. Appeared to benefit from reflecting on his ability to cut back on caffeine. Will continue IOP tx to prevent decompensation, maintain medication compliance, and increase use of healthy coping skills. Narrative Note: []
--- NOTE | 2020-03-14 09:45 | BH.COMM ---
Communication Note - Communication with Client Communication Note: Dr. Peguero updated at this time of client's lab work from 03/11 with elevated AST/ALT. Client denies nausea, malaise, or lethargy to therapy staff. Discussed Depakote dosing with Dr. Peguero. Benefit of medication outweighs risk of stopping Depakote at this time. Client's labs will be repeated in one week to closely follow liver function.
--- NOTE | 2020-03-14 10:07 | BH.SGPN.GN ---
Behaviors/Verbalizations/Mental Status: []Client alert and oriented, casually dressed and groomed. Eye contact good. Motor activity appropriate. Speech within normal limits, at times rambling but easily redirected. Affect congruent, mood euthymic. Thoughts linear, logical, no signs of hallucinations or delusions. Client Response/Progress/Benefit: []Client was an active participant AEB client providing input during discussion and listening attentively to others without interrupting or discussing off topic subjects which is progress for pt. Client connected with discussion on different types of anxiety, as well as the difference between ?normal? anxiety and anxiety disorders. Expressed feeling he is making strides to improve healthy anxiety management, however at times appeared to be minimizing or justifying avoidance behaviors such as videogames to reduce anxiety. Client gained awareness of personal physical symptoms of anxiety which included: fatigue, tight muscles, , restlessness, and increased body temp. Client struggled to identify anxious thoughts and reports ?nothing really has me anxious right now?. Continues to struggle with lack of insight. Client appeared to benefit from gaining insight to physical signs of anxiety and how thoughts can increase or maintain anxiety. Will continue PHP to increase consistent application of healthy coping skills for mood stabilization, improving change behaviors, and prevent decompensation. Narrative Note: []
--- NOTE | 2020-03-14 11:15 | BH.SGPN.GN ---
Behaviors/Verbalizations/Mental Status: []Client alert and oriented, casual in appearance. Eye contact good. Motor activity appropriate. Speech within normal limits. Affect congruent, mood euthymic. Thoughts linear, logical, no signs of hallucinations or delusions. Client Response/Progress/Benefit: []Pt an active participant AEB providing input to discussion and listened attentively to others without becoming distracted or off topic. Pt did well to connect with the discussion reviewing three categories of skills for managing anxiety which included mind-based, body-based, and self-soothing. Pt contributed some ideas and took notes as group brainstormed various skills within the different categories. Pt provided example of exercise as body-based. He did well to identify a skill he is willing to practice in each area which included self-soothing as: reading; mind-based: body-scan, and body-based: exercise. Pt seemed to benefit from increased awareness of healthy skills to manage anxiety related symptoms and in identifying skills willing to practice outside treatment environment. Progress limited due to limited insight and difficulties with consistent application of emotion regulation skills outside treatment environment though is making some improvements in this area. Recommended to continue PHP level of care to increase healthy coping skills, continue to promote emotion regulation skills, and prevent decompensation. Narrative Note: []
--- NOTE | 2020-03-14 15:14 | BH.MDN_ITS ---
Multi-Disciplinary Note - Note 30-min Individual Time Started:: 12:22 Date: 03/14/20 Purpose of session/treatment goals addressed:: Purpose of this session was to review current symptoms, stressors, and progress since last session. Another purpose was to discuss pt caffeine intake and address desire to re-introduce energy drinks to his daily diet. Eye Contact:: Good Motor Activity:: Appropriate Appearance:: Casual Speech:: Appropriate Mood:: Euthymic, Irritable Affect:: Congruent Thoughts:: Linear, Logical, No evidence of hallucinations/delusions noted Staff Interventions:: Asked open ended questions to elicit information regarding pt current symptoms, stressors, and perception of treatment goal progress. Utilized UT techniques to elicit change behaviors. Challenged use of rationalizations and distortions to justify desire to return to unhealthy behaviors. Provided psychoeducation on impact of distortions on relapse and maintaining unhealthy behaviors. Used active listening to provide supportive feedback and empathic responses. Provided homework to complete a cost/benefit analysis for consuming energy drinks. Client Response:: Pt receptive of session, actively engaged throughout. Reports that he is feeling ?fantastic? today as he had a positive weekend and to accomplish some of the cleaning tasks he had set out to do. Shared feeling focused and more able to stay on task which is consistent with pt ability to remain topic oriented and on task in both group and individual sessions over the past three days. Pt went on to share that he had accidentally consumed more caffeine on Saturday than he had realized as he was not aware of the caffeine content in Pepsi zero sugar but was glad he caught this and adjusted his soda intake for Saturday as a result. Indicated feeling ?proud? that he has successfully made it 2 full weeks without an energy drink and believes this accomplishment means he is ?not addicted to them?. Shared wanting to celebrate his two week accomplishment by having a Mountain Dew Kickstarter which upon looking up is considered to be an energy drink. Attempted to challenge pt on ?celebrating? with the substance he has been refraining from. However, pt continued to rationalize the desire to do so and indicated beliefs that ?this will prove that I can control it and only have just a little without going overboard?. Spent majority of session discussing with pt the negative impact re introducing energy drinks may have on mental and physical health, as well as risk of triggering another manic cycle. Pt became irritable at various points in discussion. He voices that he agrees there is risk in consuming energy drinks, however continues to rationalize having one as he believes this will ?let me really know if I can handle it or not?. Expressed not accepting that energy drinks may be something he is unable to handle in moderation despite reviewing negative impacts they had on him in the past. Upon further discussion, pt vocalized willingness to refrain from energy drinks for another week at least and is willing to complete a cost/benefit analysis regarding his desire to begin consuming energy drinks again. Risks/Concerns:: No concerns noted. Pt continues to report as less tangential and restless than this time last week. No psychosis or delusions noted today. Denies SI/HI plan or intent. Remains medication compliant. Pt labs reports some high levels, however pt denies any medication side effects at this time. Will be assessed further by psychiatry. Progress Toward Goals/Plan:: Progress variable. Pt continues to remain medication compliant and is taking steps to reduce impulsivity via engaging in healthy choices such as monitored spending, exercise, and daily medication and caffeine tracking. In the past weekend pt reports increased caffeine consumption and expressed a desire to return to consumption of energy drinks which in the past have triggered manic episodes. Pt is aware of potential risks however damon nues to rationalize unhealthy decision making. Continues to struggle with distorted thought patterns. However, moods appear more stable and pt has been able to successfully return to group. Will continue PHP level of care to prevent decompensation and maintain mood stability. Time Stopped:: 12:55
--- NOTE | 2020-03-15 10:17 | BH.SGPN.GN ---
Behaviors/Verbalizations/Mental Status: []Client alert and oriented, casually dressed and groomed. Eye contact good. Motor activity appropriate. Speech rambling. Affect congruent, mood euthymic. Thoughts linear, logical, no signs of hallucinations or delusions. Client Response/Progress/Benefit: []Client receptive of session, engaged throughout. He did well to work with the group to reflect on the quote and discussed the ways in which perspective can impact mental health and one's outlook on stressors. Client shared if all you look for is the negative then that's all you are going to see. Contributed to group discussion on how one develops perspective. Client worked with group to identify how negative perspective can impact mental health which included: unrealistic expectations, self-sabotage, maintain depression and anxiety, overgeneralizing, increased distorted thoughts, and decreased self-confidence. Client shared having a positive or open-minded perspective can help a person overcome challenges and for personal growth. Client stated without other perspectives businesses and work environments would suffer. Client appeared to benefit from increasing understanding of mental health benefits of a positive perspective and potential consequences to progress when perspective is negative. Progress noted in client's improved appropriate engagement during group and decrease in drew symptoms. Will continue PHP tx to monitor mood and medications and provide structure to prevent decompensation. Narrative Note: []
--- NOTE | 2020-03-15 11:17 | BH.SGPN.GN ---
Behaviors/Verbalizations/Mental Status: []Client alert and oriented, casual dress, hygiene tended to. Eye contact good. Motor activity appropriate. Speech rambling at times. Affect congruent, mood euthymic and hypomanic. Thoughts tangential at times, easily redirected. no signs of hallucinations or delusions. Client Response/Progress/Benefit: []Client responded well to session, attentive and engaged throughout session. Group shared that if one does not recognize their strengths, it could lead to increased mental health symptoms, and giving up on goals. Client able to identify personal strengths he possesses which includes: a good leader, open minded, curious, persistence and honesty. Client reported he is able to identify his positives with ease and has to keep a balance from becoming grandiose in his thinking. Appeared to benefit from recognizing personal strengths and identifying strategies to improve strengths. Progress noted as shown by client's increased awareness of how he can sometimes have grandiose thinking which results in client missing warning signs that he isn't doing well. Will continue IOP tx to prevent decompensation, improve mood stability and reduce impulsivity. Narrative Note: []
--- NOTE | 2020-03-15 14:51 | BH.MDN_ITS ---
Multi-Disciplinary Note - Note 45-min Individual Time Started:: 12:21 Date: 03/15/20 Purpose of session/treatment goals addressed:: Purpose of this session was to review current symptoms, stressors, and barriers impacting progress. Another purpose was to begin completing a self-care assessment to review and identify small self-care goals. Additional topics included: healthy relationships Eye Contact:: Good Appearance:: Casual Speech:: Appropriate Mood:: Euthymic, Irritable Affect:: Congruent Thoughts:: Linear, Logical, No evidence of hallucinations/delusions noted Staff Interventions:: Asked open ended questions to elicit information regarding pt current symptoms, stressors, and perception of strengths and barriers to progress. Utilized OR techniques to elicit change behaviors. Challenged use of rationalizations and distortions to justify desire to return to unhealthy relationship. Used active listening to provide supportive feedback and empathic responses. Reviewed with pt importance of self-care and began working with pt to self-assessment regarding current self-care practices. Provided homework to complete self-assessment and begin identifying small goals in areas for continued growth. Client Response:: Pt responded well to session, engaged throughout. Discussed feeling ?really positive? today as he had a successful day with his family after group yesterday. Discussed being able to remain on task throughout the day and was able to have positive conversations without becoming frustrated or feeling like his mother was ?treating me like a child?. Shared he had shot his brother?s crossbow which he enjoyed and resulted in temptation to go out and buy a crossbow but was able to refrain from doing so by reminding himself that it would be outside of his current spending limits. Went on to note his goal for today is to work with his mother on sorting out his disability paperwork as he has continued to put this off when asked to work on it independently. Continues to struggle with following through on tasks he does not view as ?fun? or exciting, however lacks insight into this. Pt willing to work with this therapist on completing a self-care assessment to better assess areas in which he is independently completing daily self-care tasks as well as areas for continued focus. Pt appeared to have poor insight into areas in which he is currently struggling. This was evidenced by pt reporting positive scores in eating healthy, exercise, and self-reflection however previously in session noted he had ordered himself a large pizza for lunch today and desires to return to drinking energy drinks, doesn?t believe journaling would be effective, and feels that riding his motorcycle is enough daily exercise for him. This was challenged by therapist and we discussed what is recommended in regard for daily nutrition and exercise, however continues to make rationalizations for engaging in unhealthy behaviors. Pt became off topic when discussing social connection area of self-care and shared recently being in contact with his ex-. Pt became irritable in discussing the importance of boundaries and how revisiting his relationship with his ex could be setting himself up for regression. Discussed ?I know it might not be realistic but I have to hold out hope? and struggled in being challenged on this area. Continues to struggle with healthy boundary setting. Appears to become defensive and often shuts down during conv ersations addressing his current behaviors negatively impacting success. Risks/Concerns:: Denies SI/HI, plan, or intent on this date. Pt continues to report urges to engage in unhealthy and impulsive behaviors which puts him at high-risk for relapse however has done well to maintain medication compliance and is reducing high risk spending and increased use of supports. Progress Toward Goals/Plan:: Minimal progress. Pt continues to do well with limiting caffeine, remaining medication compliant, and reducing unnecessary spending. Pt continues to struggle with limited insight which impacts boundary setting, communication, and application of healthy coping skills. Reports continuing to spend time playing video games at night despite knowledge that this prolongs his bedtime, continues to reach out to toxic supports, and struggles with small goal follow through of exercise routine. Pt recommended continued PHP tx to maintain stability, prevent decompensation, and promote health change behaviors.
--- NOTE | 2020-03-16 08:53 | BH.MDN ---
Multi-Disciplinary Note - Note 30-min Individual Time Started:: 12:14 Date: 03/17/20 Purpose of session/treatment goals addressed:: Purpose of session was to assess pt's current symptoms and stressors. Other topics included: identifying progress since starting [facility] and discussing discharge from [facility]. Created plan for day off from group. Eye Contact:: Good - at times looking at his watch Motor Activity:: Appropriate Appearance:: Casual Speech:: Appropriate, Rambling Mood:: Euthymic Affect:: Full Thoughts:: Linear, Logical, No evidence of hallucinations/delusions noted Staff Interventions:: Therapist used open ended questions to elicit information on pt's current symptoms and stressors. Therapist elicited pt's thoughts about treatment progress since starting [facility]. Therapist discussed discharge plans for [facility] and stepping down to [facility] level of care. Provided support by validating emotions. Worked with pt to create a plan for his day off from group tomorrow. Client Response:: Pt receptive of session, actively engaged throughout. He reported yesterday he had been able to successfully use deep-breathing and pacing to self-regulate when becoming frustrated with his mother on the phone. Shared that he often struggles with patience levels and becomes irritable in talking to her as she is often distracted during phone conversations. Expressed being proud that he was able to manage his emotions without it turning into a fight. Pt reported another positive was having a positive conversation with his father about the progress he has been making in stabilizing his mood and getting his finances better organized. Pt stated since starting [facility] he has progressed with increased self-awareness of how his behaviors may contribute to his mental health, challenging himself to practice more patience, feels more stable regarding his moods and has not engaged in any impulsive spending behaviors. Pt expressed feeling he has made most progress in refraining from energy drinks, limiting caffeine and alcohol, maintaining compliant with all psychiatric medications, and improving his financial stability. Pt stated he is feeling ready to discharge from [facility] today. Pt stated he will step down to [facility] beginning Saturday and will attend at four days a week with two individual sessions, instead of individual daily. Risks/Concerns:: denies suicidal ideation, plan or intention to date. Progress Toward Goals/Plan:: Progress noted with improved emotional regulation, improved communicating, increased self-awareness of barriers and behaviors leading to self-sabotage, and abstaining from energy drinks. Pt is to discharge from [facility] level of care today. Plan is to admit to [facility] level of care next week.
--- NOTE | 2020-03-16 08:57 | BH.DS_ITS ---
Discharge Summary - Demographics Date of Admission:: 03/01/20 Discharge Date: 03/16/20 Presenting Problems at Admission:: The patient is a 29-year-old male with a history of bipolar 1 disorder, manic with psychosis, alcohol use disorder, and caffeine use disorder who was admitted to the inpatient psychiatric unit at [facility] on February 16, 2020 and discharged on February 24, 2020. This was the patient's third psych admit in 6 weeks. The patient was previously in the IOP program and was escorted to the ER from the [facility] IOP program. He participated in IOP tx from January 31 to February 16, 2020. At the time of first admission patient presented as severely manic and psychotic. At this admission, pt endorses poor decision making specifically that of not sleeping or taking his medications, anxiety, impulsivity, irritability, paranoia, delusional thoughts, rapid speech, and tangential thoughts impacting ability to function at baseline. Pt had been consuming an excess of caffeine prior to admission and reports he has not consumed an energy drink since 02/29/20. Discharge Diagnoses:: Bipolar 1 disorder, most recent episode manic, severe with psychosis; anxiety disorder, NOS; alcohol use disorder; caffeine use disorder Reason for Discharge:: Pt has made significant treatment progress since starting [facility] and no longer meets medical necessity for this level of care. - Treatment Progress During Treatment & Response: Pt has demonstrated progress with reporting decreased caffeine consumptions, increased healthy decision making, reduced impulsivity, and improved mood stability. Pt has refrained from energy drink consumption since 02/29/20 which is the longest he has been able to do so in the past year. Pt reports increased emotional regulation, increased self- awareness, improved communication, and increased ability to challenge urges to engage in impulsive decisions, and increased willingness to ask for help. Pt has successfully been able to attend group sessions without becoming distracting to self/others. He is receptive to group and individual sessions AEB pt openly sharing during sessions, remaining on topic, applying skills outside of treatment environment and engaging in healthier daily living choices. Issues Still to be Addressed:: Pt could benefit from continuing to build healthy coping skills to maintain stability. Pt could also benefit from continuing to increase self-awareness of triggers and warning signs of drew. Benefit from improving communicating, addressing distorted thought patterns, and working on increasing emotional intelligence and pt use of minimization. Discharge Recommendations/Instructions:: Pt recommended to start IOP level of care 03/18/20 Discharge Handout: Complete Discharge Handout with client on aftercare options and continuity of care.
--- NOTE | 2020-03-16 09:06 | BH.SGPN.GN ---
This psychotherapy group was provided via telehealth using two-way, real-time interactive telecommunication technology between the patients and the provider.?The interactive telecommunication technology included audio and video.? ?The patient was offered telemedicine as an option for care delivery during the COVID-19 pandemic and consented to this option. ?Patient location: [place] ?Provider located at [facility] Behaviors/Verbalizations/Mental Status: []Client alert and oriented, appropriately groomed and casual in appearance. Eye contact good. Motor activity appropriate. Speech within normal limits. Affect congruent, mood euthymic. Thoughts linear, logical, no signs of hallucinations or delusions. Reviewed daily symptom tracker and client denies suicidal ideation, plan, or intent at this time. Client Response/Progress/Benefit: []Pt receptive of session, actively engaged throughout AEB attentively listening to others, providing feedback to fellow participants, and openly processing with the group. Identified emotion for the day as ?excited? as he had a positive day yesterday. He did well to identify current mental health wins and indicated that one win was following through with plans to spend time with his mother. Pt shared that this was a win as it allowed him to be able to enjoy time with supports without it being an argument. Pt noted that another win is being able to set up the 3-D printer he has and begin spending time working on that rather than spending money to entertain himself. Shared reaching out to a support for help in doing so. Expressed that his current stressor is ongoing billing issues from [employer] but has plans to work with his mother on sorting these things out this evening. Appeared to benefit from group support and identifying his areas of progress in improved consistency and stability. Recommended continued PHP tx to further promote healthy change behaviors, maintain stability, and prevent decompensation.?? Narrative Note: []
--- NOTE | 2020-03-16 10:15 | BH.SGPN.GN ---
Behaviors/Verbalizations/Mental Status: []Client alert and oriented, casually dressed and groomed. Eye contact good. Motor activity restless at times. Speech within normal limits. Affect congruent, mood euthymic. Thoughts linear, logical, no signs of hallucinations or delusions. Client Response/Progress/Benefit: []Client responded well to session, attentive and providing input to discussion. Client reported he connects with quote reporting ?you sometimes have to put yourself before others and it?s not selfish.? Client agreed with peers that without healthy boundaries, one?s mental health can worsen. Client reported it is not always easy to set boundaries, especially with family. Group identified the benefits to setting boundaries as well as the consequences of not setting healthy boundaries. Participated in the discussion of benefits of setting boundaries which included; feeling happier, less negative thinking, avoidance of toxic people, and ability to manage mental health better. Client engaged during discussion of the different types of boundaries and able to identify examples of each. Client seemed to benefit from increased awareness of how poor boundaries can negatively impact mental health. Progress noted in client?s more focused and on topic contributions during group. Client encouraged to continue tx to prevent decompensation, monitor medication and mood state, and improve daily functioning. Narrative Note: []
--- NOTE | 2020-03-16 11:17 | BH.SGPN.GN ---
Behaviors/Verbalizations/Mental Status: []Client alert and oriented, casually dressed and groomed. Eye contact good. Motor activity restless at times AEB head shaking. Speech within normal limits. Affect constricted, mood euthymic. Thoughts linear, logical, no signs of hallucinations or delusions. Client Response/Progress/Benefit: []Client responded well to session, actively contributing during discussion and making connections during the activity. Client engaged in the boundary self-assessment activity and participated in discussion to process the activity. Client shared he has struggled with finding a balance in boundary setting as client will either overshare or shut down. Client attentive during psychoeducation on the boundary setting styles and he shared he gained new insight to his boundary setting. Client stated he used to think that being porous was healthy for client ?because you just take the good with the bad.? Client reported he now sees that being porous creates more issues and mental health stressors. Client shared he wants to work on being more flexible by not saying yes to ?everything? and practicing more self-reflection. Progress noted in client being more appropriate during sessions and demonstrating ongoing medication compliance. Will drop down from [facility] and transition to IOP level of care to continue monitoring mood, symptoms, and medications. Narrative Note: []
--- NOTE | 2020-03-17 15:09 | BH.COMM ---
Communication Note - Communication with Client Communication Note: Pt's outpatient psychiatrist Marcy Ness called to give update on pt. Marcy said pt was hypomanic during her session with him yesterday exhibiting rapid speech and was rambaling. Marcy reported pt expressed concern about weight gain which pt is attributing to his risperdol. Marcy stated she would consider adding topamax to curb appetite, but wants to wait a few weeks before making at changes. Encouraged pt to continue to stay away from energy drinks and alcohol. Marcy reported pt doesn't believe pt truly recongizes the negative impact alcohol and energy drinks have on his moods.
== END 2020-03-16 17:00 | disposition home or self-care (01) ==
LOC: BHPHP 09:00
PROVIDERS: PCP Family Medicine; Referring Provider Psychiatry & Neurology Psychiatry; Visit Provider Psychiatry & Neurology Psychiatry
DX: F31.2 Bipolar disorder, current episode manic severe with psychotic features (principal); F41.9 Anxiety disorder, unspecified; F10.20 Alcohol dependence, uncomplicated
CPT/HCPCS: H0035; 90832; 90834; 90837; G0410

== ENCOUNTER → 2020-03-11 09:08 | Outpatient (CLI) | payer OTHER, SELFPAY ==
[2020-02-15 15:53] VITALS: BMI 31.0
[2020-03-11 09:59] LABS: Absolute Neutrophil Count 2.4 X10^3/uL (2.0-7.7); Basophil# 0.02 X10^3/uL; Basophil% 0.3 % (0-1); Eosinophil# 0.65 X10^3/uL; Eosinophils% 10.6 % (0-5); Hematocrit 42.8 % (40-54); Hemoglobin 14.5 g/dL (13.0-16.5); Lymphocyte % 37.4 % (19-41); Mean Corp Hgb Conc 33.9 g/dL (32-36); Mean Corpuscular Hgb 31.7 pg (27.0-32.0); Mean Corpuscular Volume 93.4 fL (80-94); Mean Platelet Vol. 10.8 fl (6.2-12.0); Monocyte# 0.79 X10^3/uL; Monocyte% 12.8 % (0-10); NRBC Flagged by Analyzer 0 % (0-5); Neutrophil # 2.37 X10^3/uL (2.7-7.7); Neutrophil % 38.6 % (47-70); Platelet Count 220 K/mm3 (150-450); RBC Distribution Width CV 12.4 % (11.6-14.6); RBC Distribution Width SD 42.8 fl (35.1-43.9); Red Blood Count 4.58 M/mm3 (4.6-6.2); White Blood Count 6.2 K/mm3 (4.4-11.0)
[2020-03-11 10:28] LABS: AST(SGOT) 73 U/L (15-37); Alanine Aminotransfer ALT/SGPT 121 U/L (16-61); Albumin, Serum 3.2 g/dL (3.2-5.0); Alkaline Phosphatase 71 U/L (45-117); Globulin 3.3 g/dL (2.2-4.2); Protein, Total 6.5 g/dL (6.4-8.2); Valproic Acid (Depakene) Level 62 ug/mL (50-100)
--- NOTE | 2020-03-16 11:11 | PCM.BH.PN_ITS ---
Progress Note Progress Note: The patient was seen briefly for a visit that I will not bill for as the patient is seeing his outpatient psychiatrist today also. Lui continues to slowly improve since he has been taking his medicine consistently. He appears to be much less manic and reports that his sleep is better recently. He sleeps at le ast 6 hours overnight and then takes a nap in the afternoon for about 2 hours. He is tolerating his medications well except for mild fatigue at times. He feels his energy is reasonably good during the day. He notices that his thoughts are at a much more normal rate now. He states that he is using minimal caffeine now and his therapist (Crissy) has him take a picture of what he drinks during the day and she goes over it with him in order to help him eliminate alcohol and to eliminate his abuse of caffeine. He also videotaped when he takes his medication and sends it to his therapist with the time on it. He feels Crissy his therapist has really helped him. I discussed with Lui the laboratory obtained on March 11, 2020. His AST and ALT were elevated roughly 2 times the upper limits of normal. The rest of his labs were normal. His valproic acid level was 62 mcg/mL. I discussed with Lui the risk of valproic acid damaging the liver and he understands and accepts this. He agrees to recheck his valproic acid labs in 1 week around March 18, 2020. This will be 1 week from his last lab draw. No medication dosage changes were made as Ho has had 3 admissions in the past 6 or 8 weeks and has just begun to start coming down from his manic episode with psychosis. I feel the benefits of the Depakote at this time outweigh the small risk of these enzyme elevations indicating liver damage. However if the enzymes continue to raise we will decrease the dose of Depakote at the very least. In addition I discussed with Ho that we will forward these lab results to his outpatient psychiatric provider who he will see later today. Ho had no evidence of suicidal or homicidal ideation. No evidence of hallucinations or delusions. Thought process was still somewhat rambling and overinclusive but more goal-directed than before. Insight may be improving. Impulsivity moderate. Judgment limited but intact. I will follow- up with the patient in 1 to 2 weeks and he will continue to follow-up with his outpatient psychiatric and medical providers.
== END ==
PROVIDERS: PCP Family Medicine; Referring Provider Psychiatry & Neurology Psychiatry; Visit Provider Psychiatry & Neurology Psychiatry
DX: F31.2 Bipolar disorder, current episode manic severe with psychotic features (principal)
CPT/HCPCS: 36415; 80076; 80164; 85025

== ENCOUNTER → 2020-03-18 08:39 | Outpatient (CLI) | payer OTHER, SELFPAY ==
[2020-03-18 09:00] LABS: Absolute Lymphocyte Count 2.67 X10^3/uL (0.83-4.51); Absolute Neutrophil Count 1.7 X10^3/uL (2.0-7.7); Basophil# 0.02 X10^3/uL; Basophil% 0.4 % (0-1); Eosinophil# 0.46 X10^3/uL; Eosinophils% 8.3 % (0-5); Hematocrit 43.2 % (40-54); Hemoglobin 14.3 g/dL (13.0-16.5); Lymphocyte # 2.67 X10^3/ul (4.0); Lymphocyte % 48.2 % (19-41); Mean Corp Hgb Conc 33.1 g/dL (32-36); Mean Corpuscular Volume 93.5 fL (80-94); Mean Platelet Vol. 10.3 fl (6.2-12.0); Monocyte# 0.68 X10^3/uL; Monocyte% 12.3 % (0-10); NRBC Flagged by Analyzer 0 % (0-5); Neutrophil % 30.6 % (47-70); Platelet Count 228 K/mm3 (150-450); RBC Distribution Width CV 12.2 % (11.6-14.6); RBC Distribution Width SD 42.4 fl (35.1-43.9); Red Blood Count 4.62 M/mm3 (4.6-6.2); White Blood Count 5.5 K/mm3 (4.4-11.0)
[2020-03-18 09:42] LABS: Valproic Acid (Depakene) Level 72 ug/mL (50-100)
[2020-03-18 09:55] LABS: AST(SGOT) 43 U/L (15-37); Alanine Aminotransfer ALT/SGPT 87 U/L (16-61); Albumin, Serum 3.5 g/dL (3.2-5.0); Alkaline Phosphatase 77 U/L (45-117); Bilirubin, Direct 0.08 mg/dL (0.00-0.30); Globulin 3.3 g/dL (2.2-4.2); Protein, Total 6.8 g/dL (6.4-8.2)
[2020-04-01 09:59] LABS: Absolute Lymphocyte Count 3.35 X10^3/uL (0.83-4.51); Basophil# 0.01 X10^3/uL; Basophil% 0.2 % (0-1); Eosinophil# 0.25 X10^3/uL; Hematocrit 42.7 % (40-54); Hemoglobin 14.6 g/dL (13.0-16.5); Lymphocyte # 3.35 X10^3/ul (4.0); Lymphocyte % 53.9 % (19-41); Mean Corp Hgb Conc 34.2 g/dL (32-36); Mean Corpuscular Hgb 31.9 pg (27.0-32.0); Mean Corpuscular Volume 93.4 fL (80-94); Mean Platelet Vol. 10.7 fl (6.2-12.0); Monocyte# 0.59 X10^3/uL; Monocyte% 9.5 % (0-10); NRBC Flagged by Analyzer 0 % (0-5); Neutrophil % 32.2 % (47-70); Platelet Count 229 K/mm3 (150-450); RBC Distribution Width CV 12.2 % (11.6-14.6); RBC Distribution Width SD 41.8 fl (35.1-43.9); Red Blood Count 4.57 M/mm3 (4.6-6.2); White Blood Count 6.2 K/mm3 (4.4-11.0)
[2020-04-01 10:25] LABS: AST(SGOT) 32 U/L (15-37); Alanine Aminotransfer ALT/SGPT 46 U/L (16-61); Albumin, Serum 3.3 g/dL (3.2-5.0); Alkaline Phosphatase 73 U/L (45-117); Bilirubin, Direct 0.09 mg/dL (0.00-0.30); Globulin 3.3 g/dL (2.2-4.2); Protein, Total 6.6 g/dL (6.4-8.2)
[2020-04-01 10:48] LABS: Valproic Acid (Depakene) Level 55 ug/mL (50-100)
== END ==
PROVIDERS: PCP Family Medicine; Referring Provider Psychiatry & Neurology Psychiatry; Visit Provider Psychiatry & Neurology Psychiatry
DX: Z79.899 Other long term (current) drug therapy (principal)
CPT/HCPCS: 36415; 80076; 80164; 85025

== ENCOUNTER 2020-03-18 09:00 | Outpatient (RCR) | payer OTHER, SELFPAY ==
--- NOTE | 2020-03-16 09:06 | BH.SGPN.GN ---
Behaviors/Verbalizations/Mental Status: []Client alert and oriented, appropriately groomed and casual in appearance. Eye contact good. Motor activity appropriate. Speech within normal limits, some rambling. Affect congruent, mood euthymic. Thoughts linear, logical, no signs of hallucinations or delusions. Reviewed daily symptom tracker and client denies suicidal ideation, plan, or intent at this time. Client Response/Progress/Benefit: []Client actively engaged in session AEB attentively listening to others and openly processing with the group. Reported emotion for the day is ?solid? and indicated that this is due to feeling more stable and as though he is making consistent progress. Client did well to identify current mental health wins and indicated that one win was continuing to reconnect with his family. He discussed being able to spend time with his father over dinner the previous night which was a positive as his father is a good support. Client indicated that another win is finally making some progress regarding overdue hospital bills. He shared that his mother has been helping him with organizing and sorting out the bills. Noted this as his stressor for the day but feels he is beginning to make progress in this area and is glad he reached out for assistance from his mother. Appeared to benefit from group support and structure. Recommended continued tx to increase mood stability, improve coping repertoire, and prevent decompensation.? Narrative Note: []
--- NOTE | 2020-03-18 10:14 | BH.SGPN.GN ---
Behaviors/Verbalizations/Mental Status: []Client alert and oriented, casually dressed and groomed. Eye contact good. Motor activity appropriate. Speech within normal limits, at times rambling. Affect congruent, mood euthymic. Thoughts linear, logical, no signs of hallucinations or delusions. Client Response/Progress/Benefit: []Pt active participant as shown by contribution to discussion and insight provided. Pt shared connecting to group topic of self-care. Shared that to him self-care means ?getting back to the basics? and discussed taking care of his own basic needs like hunger and sleep as these are often the first to go for him. Pt helped the group discuss benefits of self-care which included; improved self-esteem, increase patience, increased productivity, improved relationships, and improved ability to . Pt participated in the discussion of the common myths about self-care including self-care is selfish, too much effort and time, and is self-indulgent. Client participated in the discussion on debunking of these myths. Client seemed to benefit from increased awareness of the importance of self-care and challenging common myths that prevent practicing self-care. Discussed at times struggling to remind himself that self-care is important and also means doing the difficult and not always fun things. Client progress noted in client?s increased ability to maintain stability. Will continue IOP tx to promote gains, improve consistency and stability, as well as prevent decompensation. Narrative Note: []
--- NOTE | 2020-03-18 11:13 | BH.SGPN.GN ---
Behaviors/Verbalizations/Mental Status: []Client alert and oriented, casually dressed and groomed. Eye contact good. Motor activity appropriate. Speech within normal limits. Affect congruent, mood euthymic. Thoughts linear, logical, no signs of hallucinations or delusions. Client Response/Progress/Benefit: []Client receptive of session, engaged and positively contributing to discussion. Participated in further debunking myths about self-care and reinforcing the benefits of practicing consistent self-care. Client shared that he has been working hard to become more balanced in all areas of his life, but he is especially focused on bettering his mental health. Engaged in small group discussion and attentive while others shared. Willing to complete worksheet activity and helped the group identify various types of self-care activities. Client completed self-assessment activity on the different areas of self-care and was able to identify current practices he uses and identify areas he can improve upon. Client reported he can improve his social self-care. Client reported he wants to work on this area of self-care by planning with family to go on a vacation once COVID-19 restrictions are lifted. Client reported he has not seen his family in [place] for a long time, so it would be nice to connect with them. Client appeared to benefit from increasing awareness of how he can improve self-care balance. Progress noted as client continues to demonstrate appropriate behaviors and positive contributions during group. Will continue IOP tx to promote mood stability, monitor medications, and improve emotional regulation skills. Narrative Note: []
--- NOTE | 2020-03-18 16:49 | BH.MDN_ITS ---
Multi-Disciplinary Note - Note 45-min Individual Time Started:: 09:15 Date: 03/18/20 Purpose of session/treatment goals addressed:: The purpose of this session was to address current symptoms, stressors, and application of coping skills. Another goal was to review client's cost/benefit analysis for his mental health and consuming energy drinks. Eye Contact:: Good Motor Activity:: Appropriate Appearance:: Casual Speech:: Appropriate Mood:: Euthymic Affect:: Congruent Thoughts:: Linear, Logical, No evidence of hallucinations/delusions noted Staff Interventions:: Therapist used active listening and open-ended questions to gather client's current symptoms, stressors, and treatment goal progress. Commended pt for areas of ongoing progress. Therapist reviewed client?s homework and processed with pt his identified costs and benefits of energy drinks of his mental health. Therapist challenged client use of distortions that justify unhealthy behaviors. Therapist assisted client identifying fear ladder situations as client struggled to identify them on his own. Therapist gave client homework to practice healthy alternative ways of improving energy and concentration levels. Client Response:: Client responded well to session, open to meeting with therapist. Client reported he has been feeling better and more stable since reducing caffeine intake several weeks ago. Reports willingness to continue to refrain from energy drink consumption for the foreseeable future; however, client continues to struggle with accepting that he may not be able to return to casual energy drink consumption. Continues to struggle with distortions that reinforce beliefs that he will be able to ?control? how energy drink impact him and prevent from triggering a manic state. Client's distortions typically relate to client's fears about ?missing out?, not wanting to be labeled as ?addicted?, and beliefs that the benefits outweigh the consequences. Client willing to review his completed cost/benefit analysis on energy drinks. With assistance, he identified that the benefits he finds in energy drinks are often related to instant gratification and have only short-term effects. Insight that consequences can be much longer-term and have a greater impact on his overall mental health and wellness, as well as prevent him from attaining his goal to return to work. Discussed the benefits of doing other healthy activities to improve focus and energy levels. Client expressed that he could do yoga in the morning, drink could water, or go for a walk to wake himself up and increase focus levels. Willing to begin incorporating these activities in replace of solely relying on caffeinated beverages in the morning. Risks/Concerns:: Client denies any suicidal ideations, plan, or intent as of 03/18/20. Progress Toward Goals/Plan:: Client appears to be responding well to treatment as client becomes more engaged, focused, and active in sessions each week. Client's drew continues to decrease and client reports he has been feeling more positive, stable, and capable of completing daily responsibilities. Client continues to endorse daily difficulties in communicating with his mother, ongo ing issues with impulsive spending though has improved in this area, increased sleep, and ongoing difficulties with concentration. However, client has been working on establishing a more consistent daily routine. Client will continue IOP tx to improve daily functioning as well as improve mood stability. Time Stopped:: 10:00
--- NOTE | 2020-03-18 16:51 | BH.MTP ---
[facility] Treatment Plan - Patient Information Program Physician:: Ramya Peters Primary Therapist:: MARIA Mckeon - Psychiatric Diagnoses Psychiatric Diagnoses:: Bipolar 1 disorder, most recent episode manic, severe with psychosis; anxiety disorder, NOS; alcohol use disorder; caffeine use disorder Diagnosis Code(s):: F 31.1 - Estimated LOS Estimated LOS (in weeks):: 6 Problem/Goal #1 - Problem/Goal #1 Stated Goal:: Client will increase mood stability and achieve controlled behavior to better manage hypomania due to Bipolar Disorder through Intensive Outpatient Services. Description of Barriers: Hx of non-compliance with medications and treatment. Pt struggles with letting go of benefits to drew. Pt struggles with resistance to treatment. Hx of impulsivity. Reports high motivation for improving mental health although continues to struggle with application of tx recommendations. Functional Impact: The patient is a 29-year-old male with a history of bipolar 1 disorder, manic with psychosis, alcohol use disorder, and caffeine use disorder who was admitted to the inpatient psychiatric unit at [facility] on February 16, 2020 and discharged on February 24, 2020. This was the patient's third psych admit in 6 weeks. The patient was previously in the IOP program and was escorted to the ER from the [facility] IOP program. He participated in IOP tx from January 31 to February 16, 2020. At the time of first admission patient presented as severely manic and psychotic. At this admission, pt endorses poor decision making specifically that of not sleeping or taking his medications, anxiety, impulsivity, irritability, paranoia, delusional thoughts, rapid speech, and tangential thoughts impacting ability to function at baseline. Pt had been consuming an excess of caffeine prior to admission and reports he has not consumed an energy drink since 02/29/20. Goal Relevant Strengths/Supports: motivation to change, willingness to adhere to treatent recommendations, strong familial support, easily able to get along with others - Objectives Objective #1 Stated Objective: Client will identify 2-3 triggers that resulted in an elevated or depressed mood and take steps to address these triggers. Interventions: Through individual and group counseling will help client develop insight into mental health triggers as well as ways to address these triggers. Discharge Criteria: Client will have achieved this objective when able to verbalize at least 2 triggers that result in an elevated mood and 2 triggers for depression, as well as identify ways to mitigate these triggers. Target Date: 04/29/20 Review Date: 04/15/20 Objective #2 Stated Objective: Client will identify 2-3 triggers and 2-3 new ways to navigate stressful situations rather than becoming irrational and losing temper. Interventions: Therapist will use motivational interviewing, and help client make changes in life to encourage more responsible and rational behavior, ways to manage emotions in stressful situations, and feel more confident in himself. Discharge Criteria: Client will have met this goal when he is able to describe less than 2 irrational reactions in a week, and at least 2 new ways to handle these stressful situations. Target Date: 04/29/20 Review Date: 04/15/20 Problem/Goal #2 - Problem/Goal #2 Stated Goal:: Client will decrease anxious symptoms and ruminating thoughts, as well as increase healthy coping skills through IOP services. Description of Barriers: Hx of non-compliance with medications and treatment. Pt struggles with letting go of benefits to drew. Pt struggles with resistance to treatment. Hx of impulsivity. Reports high motivation for improving mental health although continues to struggle with application of tx recommendations. Functional Impact: The patient is a 29-year-old male with a history of bipolar 1 disorder, manic with psychosis, alcohol use disorder, and caffeine use disorder who was admitted to the inpatient psychiatric unit at [facility] on February 16, 2020 and discharged on February 24, 2020. This was the patient's third psych admit in 6 weeks. The patient was previously in the IOP program and was escorted to the ER from the [facility] IOP program. He participated in IOP tx from January 31 to February 16, 2020. At the time of first admission patient presented as severely manic and psychotic. At this admission, pt endorses poor decision making specifically that of not sleeping or taking his medications, anxiety, impulsivity, irritability, paranoia, delusional thoughts, rapid speech, and tangential thoughts impacting ability to function at baseline. Pt had been consuming an excess of caffeine prior to admission and reports he has not consumed an energy drink since 02/29/20. Goal Relevant Strengths/Supports: motivation to change, willingness to adhere to treatent recommendations, strong familial support, easily able to get along with others - Objectives Objective #2 Stated Objective: Client will identify 2 triggers and 2 coping skills to use in increased times of anxiety and rumination Interventions: Therapist will encourage client to use self-awareness strategies and assist client in developing coping strategies to manage ruminating thoughts. Therapist will teach client calming/relaxation skills and assign client homework which practices relaxation skills daily. Discharge Criteria: Client will have completed this goal when better able to cope with stressors, and identify 2 triggers to increased mental health symptoms. Target Date: 04/29/20 Review Date: 04/15/20 Objective #1 Stated Objective: Pt will decrease anxious symptoms AEB pt?s score on the DSM 5 cross-cutting measure improve pt?s daily functioning. Interventions: Through groups and individual therapy, pt will be provided education about anxiety?s impact on body and common physiological reaction to anxiety. Therapist will teach pt appropriate breathing techniques and build healthy coping skills to manage daily anxieties. Discharge Criteria: Pt will have met this goal when pt?s score on the DSM 5 cross cutting measure for anxiety has been decreased and per pt?s report daily functioning has improved. Target Date: 04/29/20 Review Date: 04/15/20
--- NOTE | 2020-03-21 09:05 | BH.SGPN.GN ---
Behaviors/Verbalizations/Mental Status: []Client alert and oriented, casually dressed and groomed. Eye contact good. Motor activity appropriate. Speech within normal limits. Affect congruent, mood euthymic. Thoughts linear, logical, no signs of hallucinations or delusions. Reviewed client?s symptom tracker, no risk for suicidal ideation, plan, or intent as of 03/21/20. Client Response/Progress/Benefit: []Client responded well to session, providing supportive feedback and connecting with peers. Client reports feeling optimistic today after having a productive weekend. Client reported he spent time cleaning with his mother and went motorcycling with a friend. Client reported he noticed progress in himself over the weekend, when client did not need to smoke to cope while spending time with his mom. Client shared it proved to myself I didn't need it. Client reflected on his progress since returning to IOP and client acknowledged his mood has been more stable. Client connected with another peer who has Bipolar Disorder, and provided the peer to hope. Client's stressor today is that he still has some bills from his hospitalization to pay, but he feels able to manage this stressor. Appeared to benefit from connecting with peers and reflecting on his progress in managing symptoms, but he still struggles with regulating his moods. Will continue IOP tx as client can continue to improve mood stability, increase healthy coping skills, and monitor medication. Narrative Note: []
--- NOTE | 2020-03-21 11:12 | BH.SGPN.GN ---
Behaviors/Verbalizations/Mental Status: []Eye contact is good. Motor activity is appropriate. Appearance is casual. Speech is Appropriate. Mood is euthymic. Affect is congruent. Thoughts are linear and logical. No evidence of psychosis Client Response/Progress/Benefit: []Client receptive of session, engaged and contributing to discussion. Provided examples and feedback to peers, asked questions, and willingly completed goal setting worksheet. Client chose the goal; Spend at least 5 minutes meditating daily for 7 days. When asked why this goal was important and beneficial to client's mental health he stated; It will improve ability to practice mindfulness and establish healthier daily activities. Identified the following barriers to completing this goal which included; forgetting, becoming distracted, and difficulties focusing on things other than his phone. Identified solutions to barriers which included; set a reminder, turn his phone on ?do not disturb?, and put on some music or white noise. Benefited from this group by practicing how to develop a short-term SMART goals related to mental health. Will continue IOP tx to further increase mood stability, improve application of healthy coping skills, and prevent decompensation. Narrative Note: []
--- NOTE | 2020-03-22 10:15 | BH.SGPN.GN ---
Behaviors/Verbalizations/Mental Status: []Client alert and orient. Appearance casual and appropriately groomed. Speech an appropriate rate and tone. Motor activity WNL. Mood euthymic, affect congruent to mood. No evidence of delusion or hallucinations.? Client Response/Progress/Benefit: [] Pt receptive of session, actively engaged throughout the discussion and provided insight throughout. Worked with the group to define healthy communication and it?s various attributes, providing some input throughout. Discussed benefits of healthy communications on mental health and maintaining healthy relationships which included: improved mood, increased ability to get your point across, needs are more likely to be met, and healthier relationships. Group additionally discussed potential barriers to communication including: shutting down, vagueness, fear of judgement, and past negative experiences. Pt receptive of and appeared to benefit from psychoeducation portion discussing different styles of communication. Pt noted identifying with various aspects of each type of communication but is often passive-aggressive. Explained that this has impacted relationships in the past. Progress noted in increased insight into personal communication styles and barriers. Pt to continue in IOP tx to promote healthy change behaviors, improve mood stability, and prevent decompensation. Narrative Note: []
--- NOTE | 2020-03-22 11:16 | BH.SGPN.GN ---
Behaviors/Verbalizations/Mental Status: []Client alert and oriented, casual dress, hygiene tended to. Eye contact good. Motor activity appropriate. Speech- rambling at times. Affect-unable to gather because wearing a mask, mood euthymic. Thoughts linear, logical, no signs of hallucinations or delusions. Client Response/Progress/Benefit: []Client responded well to session AEB client listening attentively to others and providing input during discussion. Client further processed his communication style and ways in which the different styles have impacted client?s mental health and relationships. Client reported he connected with all four communication styles, but he is trying to be assertive more often. Client admitted that there are times when he becomes aggressive, especially when dealing with frustrating people. Client worked with group to identify strategies to improve communication. Client also gave feedback to a peer on how to advocate for oneself in the workplace. Client listened attentively as the group reviewed the strategy DEAR MAN which is a technique to help individuals communicate needs more effectively. Client receptive to selecting one of the DEAR MAN strategies for homework to improve communication. Client to continue IOP tx continue to monitor mood and medications, improve daily functioning, and promote mood stability. Narrative Note: []
--- NOTE | 2020-03-22 12:04 | BH.MDN ---
Multi-Disciplinary Note - Note 45-min Individual Time Started:: 09:15 Date: 03/22/20 Purpose of session/treatment goals addressed:: Purpose of session was to asses pt's current symptoms, stressors, and treatment goal progress. Other topics included: creating a morning routine and establishing manageable weekly exercise goals. Eye Contact:: Good Motor Activity:: Appropriate Appearance:: Casual Speech:: Appropriate Mood:: Euthymic Affect:: Congruent Thoughts:: Linear, Logical, No evidence of hallucinations/delusions noted Staff Interventions:: Therapist used open ended questions to elicit information regarding pt current symptoms, stressors. And perception of tx goal progress. Therapist reviewed pt self-care assessment provided for homework last week. Assisted pt with identifying areas for increased focus and began developing a morning routine to help pt begin preparing to transition back to work. Therapist helped pt problem solve current physical health and low energy stressors by working to establish small goals to help make regular exercise a part of his regular weekly routine. Client Response:: Pt responded well to session, actively engaged throughout. Reported he has continued to feel more stable over the past two weeks and discussed that his friends have also commented on the changes in demeanor they have seen as well. Noted his friends have expressed that pt seems ?much calmer? and more focused. Expressed his mother has made similar comments and feels proud that his progress has been noticed. Pt provided insight regarding what has aided in making such progress, identifying consistently taking his medication, learning from past mistakes, reducing caffeine intake, and applying the skills he is learning in group. Shared practicing 20 minutes of mindfulness while laying outside yesterday afternoon and felt more relaxed as a result. Pt and therapist reviewed the self-care assessment he had previously completed for homework and pt reflected upon areas in which he feels he is currently struggling. Discussed struggling with balance throughout the day as he often does different things each day. Additionally expressed difficulties in consistently tending to his physical health needs. Shared that while he had been working he had a set routine in the morning but currently does not. Pt and therapist discussed how establishing a mourning routine could aide in preparing him to return to work as well as help create more balance in his daily life. Discussed returning to prior morning routine with slight adjustments to more easily make the transition back to work. Pt and therapist additionally worked on identifying ways to begin to implement exercise into this routine. Pt identified that the previously established workout time of 3pm is not working and shared he is more likely to complete this task if it is before noon. Indicated plans to begin working out 2x a week as well to help slowly reintroduce this into his regular routine. Identified that regular exercise will improve his physical health as well as reduce negative thoughts, increase self-esteem, and improve productivity. Risks/Concerns:: Denies suicidal ideation, plan or intention to date. 03/22/20 Progress Toward Goals/Plan:: Pt progress noted as pt continues to work at applying skills consistently. Pt recognizes by continuing to reduce caffeine intake, reach out to his supports, and find healthy activities to engage in such as bike riding, working on his 3d printer, or reaching out to supports he can continue to maintain stability. Pt is making progress in improving emotion regulation, mood stability, and healthy decision making. Appears calmer, less impulsive, and more capable of concentrating. Pt to continue IOP to increase consistent application of healthy coping, improve mood stability to continue to aid in transition back to work, and prevent decompensation. Time Stopped:: 09:52
--- NOTE | 2020-03-23 12:07 | BH.DR.ITP ---
Initial Treatment Plan - Patient Information Visit Information: ADMISSION DATE: EXPECTED LOS: 4-6 weeks - Problems/Symptoms Problem #1:: [place] Symptom:: Resolving but residual restlessness, rapid speech, distractability, grandiose thoughts Problem #2:: Anxiety Symptom:: Rumination, worry
--- NOTE | 2020-03-23 12:09 | PCM.BH.PN ---
Progress Note Progress Note: History of Present Illness/Interim History: [] Patient is a 29-year-old male who is seen in follow-up at the [facility] IOP program. The patient is being seen for bipolar 1 disorder most recent episode manic with psychosis (resolving). The patient is seen in order to stepdown from [facility] to IOP today. The patient states that he is feeling much more level and stable mood wagoner. He has not used any alcohol for the past 2 weeks and has not had any energy drinks for over 3 weeks. The patient quit cigarettes also and is currently smoking small cigars. He has been compliant with his medications and is seeing his parents frequently and getting along well with them. He feels the program is really benefiting him and he is learning valuable skills. He is participating in group well and is staying on topic. He saw his outpatient psychiatry provider last week. His sleep is good at about 10 hours a night. He is better able to focus and concentrate now. He feels his thoughts are not racing anymore. He denies any suicidal or homicidal ideation. He denies any hallucinations or delusions or other symptoms of drew or depression. Current Psychiatric Medications: [Depakote ER 1500 mg p.o. nightly; Risperdal 4 mg p.o. nightly; Vistaril 50 mg p.o. nightly] Mental Status Examination: [] Patient is a 29-year-old male who appears normal for stated age and is wearing a mask during the interview. He is casually dressed and groomed with good hygiene and is cooperative and pleasant during the interview. He has no psychomotor agitation or retardation. His speech is normal rate and rhythm with no pressure. His thought process is goal-directed and organized. His mood is euthymic. His affect is constricted but full. Thought content: No evidence of hallucinations or delusions. No evidence of suicidal or homicidal ideation. Judgment: Intact. Insight: Some present. Impulsivity: Low to moderate Diagnoses: [] [place] I: [] Bipolar 1 disorder, most recent episode manic, severe with psychosis (resolving; anxiety disorder NOS; alcohol use disorder; caffeine use disorder [place] II: [] Deferred [place] III: []negative [place] IV:[]] Primary support, work and financial issues Plan: [] Patient will continue the IOP program as the structure, support, education, group and individual therapy will hopefully prevent worsening of his symptoms that could require rehospitalization. He felt safe during the interview and if at any time he does not feel safe he will let us know or go to the emergency room. The risk, options, and possible side effects or complications of the medication were discussed with the patient and he understands accepts these. He agrees to continue to avoid all alcohol use and all energy drinks. No medication dosing changes were made today. He will obtain his valproic acid labs in about 1 week as the last set of labs showed his liver enzymes to be decreasing down towards normal. I will see the patient in follow-up in 2 weeks or as needed. He will continue to follow-up with his outpatient providers.
== END 2020-03-24 23:59 ==
LOC: BHIOP 09:00
PROVIDERS: PCP Family Medicine; Referring Provider Psychiatry & Neurology Psychiatry; Visit Provider Psychiatry & Neurology Psychiatry
DX: F31.2 Bipolar disorder, current episode manic severe with psychotic features (principal); F41.9 Anxiety disorder, unspecified; Z72.89 Other problems related to lifestyle; F15.90 Other stimulant use, unspecified, uncomplicated
CPT/HCPCS: H0035; 90834; 90853

== ENCOUNTER 2020-03-25 09:00 | Outpatient (RCR) | payer OTHER, SELFPAY ==
--- NOTE | 2020-03-25 09:15 | BH.SGPN.GN ---
Behaviors/Verbalizations/Mental Status: []Client alert and oriented, casual dress, hygiene tended to. Eye contact good. Motor activity appropriate. Speech within normal limits. Affect congruent, mood euthymic. Thoughts linear, logical, no signs of hallucinations or delusions. Reviewed client?s symptom tracker, pt denies current suicidal thoughts or intention to date. Client Response/Progress/Benefit: []Pt responded well to session as evidenced by pt engaging in relaxation activity, sharing thoughts and feelings and listening attentively to peers. Pt identified mental health positive as getting 12 hours of sleep last night which is what he currently needs in order to feel rested due to his medications. Pt reported additional mental health positive as being productive with getting his to-do list complete. Pt stated current stressor is the upcoming weather forecast not being very warm. Progress noted with pt continue to maintain mood stability, refraining from drinking energy drinks, and taking medication consistently. Pt to continue IOP to maintain mood stability, continue to be self-aware of impulsivity, and prevent decompensation. Narrative Note: []
--- NOTE | 2020-03-25 10:19 | BH.SGPN.GN ---
Behaviors/Verbalizations/Mental Status: []Client alert and oriented, neatly dressed and groomed. Eye contact intense at times, staring. Motor activity appropriate. Speech mostly within normal limits, rambling at times. Affect constricted, mood euthymic. Thoughts linear, logical, no signs of hallucinations or delusions. Client Response/Progress/Benefit: []Client was an engaged participant throughout group session AEB client contributing to discussion and activity. Discussed how sometimes people cope using unhealthy skills and recognized that unhealthy coping skills often make things worse. Client shared ?I?m looking back at when I was using all those unhealthy skills.? Group identified unhealthy coping skills which included; avoidance, drinking, sleeping too much, eating too much, saying yes too often, and overspending. Group reported people turn to unhealthy skills because of habit and wanting a quick fix. Client agreed that learning healthy coping skills takes self-awareness and practice. Client also shared for him it has taken making small changes in order to get healthier coping skills. Participated in the activity and discussed the benefits of having a balance of internal and external coping skills. Client seemed to benefit from increased awareness of importance of increasing healthy coping skills and consequences of utilizing unhealthy coping skills. Client will continue IOP tx to further improve mood stability, improve daily functioning, and monitor medication. Narrative Note: []
--- NOTE | 2020-03-25 11:19 | BH.SGPN.GN ---
Behaviors/Verbalizations/Mental Status: []Client alert and oriented, casually dressed and groomed. Eye contact intense, staring at times. Motor activity appropriate. Speech within normal limits. Affect congruent, mood euthymic. Thoughts linear, logical, no signs of hallucinations or delusions. Client Response/Progress/Benefit: []Client responded well to session, connected with activity and participating in discussion. Agreed with peers that it is important to have a balance of internal and external coping skills as this helps client use their own skills, but know when to ask for help. Client contributed as the group discussed the different categories of coping skills which included distraction, emotional release, grounding, self-love, and thought challenging. Client stated he struggles to practice self-love and has to remind himself to treat himself like I'd want other to treat me. Participated in creating a coping skills ?menu? for the five categories of coping skills. Client's coping skill menu included; learning something new, smell fragrances and eat slowly, exercise, take a bubble bath, and opposite action. He appeared to benefit from increasing repertoire of healthy coping skills. Client progress shown by his report of medication compliance, denial of drew symptoms, and improved functioning. Will continue IOP tx to promote mood stability, maintain medication compliance, and further improve mood stability. Narrative Note: []
--- NOTE | 2020-03-25 15:26 | BH.MDN ---
Multi-Disciplinary Note - Note 45-min Individual Time Started:: 12:25 Date: 03/25/20 Purpose of session/treatment goals addressed:: Purpose of session was to asses pt's current symptoms, stressors, and treatment goal progress. Other topics included: discussing transition to work plan, identifying warning signs and triggers for Bipolar disorder including drew, depression, and what stability looks like in various areas of pt life. Pt to complete for homework. Eye Contact:: Good Motor Activity:: Appropriate Appearance:: Casual Speech:: Appropriate Mood:: Euthymic Affect:: Congruent Thoughts:: Linear, Logical, Other - some tangentiality though easily redirected, No evidence of hallucinations/delusions noted Staff Interventions:: Therapist used open ended questions to elicit information regarding pt current symptoms, stressors, and perception of tx goal progress. Use NC strategies to promote change behaviors. Therapist commended pt on areas of ongoing progress and discussed potential return to work timeline. Provided psychoeducation on common warning signs for manic and depressive episodes related to Bipolar disorder and aided pt in identifying his own warning signs/triggers. Pt to complete for homework. Client Response:: Pt responded well to session, actively engaged throughout. Reported feeling as though he is ?getting back to a balance?. Pt was focused during discussion and remained on topic. He discussed that for him this means continuing to accomplish his goals and try new things but doing so at a slower pace, thinking more, rationally, and being more engaged in the present. Went on to describes areas in which he has continued to see progress which included: improved financial stability, more consistent and healthy sleep routine, implementing daily mindfulness activities, and continuing to improve his diet and exercise regimen. Expressed finding his new mindfulness routine particularly helpful in maintaining stability. Pt and therapist discussed potential return to work based on current progress and areas for continued improvement. Pt shared wanting to be back at work weeks ago but understands importance of taking things slowly. Discussed time spent on his mental health has improved his ability to complete daily responsibilities, reduce impulsivity, and get to a ?more focused place?. Discussed plan to return part-time to work on 04/08/20. Pt agreeable and willing to work with therapist on beginning to create a relapse prevention and mood stability plan. Area of focus for today was identifying warning signs and triggers for drew. Pt receptive to psychoeducation on common drew symptoms in various areas of his life, willing to work with therapist to identify personal warning signs/triggers. Pt described hyperactivity, irritability, inappropriate humor, and lack of sleep among many others. Pt willing to work on identifying depression related and baseline symptoms over the weekend. Risks/Concerns:: Denies suicidal ideation, plan or intention to date. 03/25/20 Progress Toward Goals/Plan:: Pt progress noted as pt continues to work at applying skills consistently, reports improved stability, and denies any recent impulsive behaviors. Pt continuing to reduce caffeine and alcohol intake. Remains compliant with medication. Pt is continuing to make progress in improving mood stability and healthy decision making. Increased insight regarding triggers and warning signs for drew.. Pt to continue IOP to increase consistent application of healthy coping, improve mood stability to continue to aid in transition back to work, and prevent decompensation. Time Stopped:: 13:05
--- NOTE | 2020-03-28 09:08 | BH.SGPN.GN ---
Behaviors/Verbalizations/Mental Status: []Client alert and oriented, appropriately groomed and casual in appearance. Eye contact good. Motor activity appropriate. Speech within normal limits. Affect congruent, mood euthymic. Thoughts linear, logical, no signs of hallucinations or delusions. COntinues to appear to struggle with minimization Reviewed daily symptom tracker and client denies suicidal ideation, plan, or intent at this time. Client Response/Progress/Benefit: []Pt receptive of session, engaged throughout AEB attentively listening to others, providing supportive and appropriate feedback, and openly processing with the group. Identified emotion for the day as ?optimistic? as he indicated continued ability to see progress in overall mood stability and daily functioning. He did well to identify current mental health wins and indicated that one win was following through with plans to help his mother and stepfather around the house. Pt expressed that he was able to connect with his mom as well as feel accomplished. Pt noted that another win is being able to reach out to a healthy supports he has used in the past via online games. Shared this helped to remind him of the positive supports in his life he has overlooked previously. Pt did however express staying up later than usual to play videogames with his friends which is a concern as he has placed socializing over healthy sleep and other responsibilities in the past. Expressed that his current stressor is feeling ?there is not enough time in the day?. Appeared to benefit from group support and suggestions on time managements strategies. Recommended continued IOP tx to further promote healthy change behaviors, maintain stability, and prevent decompensation.?? Narrative Note: []
--- NOTE | 2020-03-28 10:15 | BH.SGPN.GN ---
Behaviors/Verbalizations/Mental Status: []Client alert and oriented, casually dressed and groomed. Eye contact good. Motor activity appropriate. Speech within normal limits. Affect congruent, mood euthymic. Thoughts linear, logical, no signs of hallucinations or delusions. Client Response/Progress/Benefit: []Client responded well to session, attentive and engaged throughout session and activity. Client appeared to connect with the topic of fear of failure. Client participated in the discussion famous failures and how one?s response to setbacks is what truly matters in success. Group discussed common initial reactions to failure which included; hopelessness, negative self-talk, self-sabotage, and disappointment. Client connected with the concept that mindset is powerful in determining how a person moves forward after failing. Client shared ?I view progress like the stock market, it always goes up and down.? Connected with fear of failure and how fear of failure can impact one?s mental health. Engaged and positive during the group activity. Client progressing as shown by his improved emotional regulation during group and ongoing medication compliance. Will continue IOP tx to further improve mood stability, continue to reduce impulsivity, and improve daily functioning. Narrative Note: []
--- NOTE | 2020-03-28 11:20 | BH.SGPN.GN ---
Behaviors/Verbalizations/Mental Status: []Client alert and oriented, casual dress, hygiene tended to. Eye contact good. Motor activity appropriate. Speech within normal limits. Affect could not be assessed due to all patients needing to wear masks to prevent potential spread of coronavirus. mood euthymic. Thoughts linear, logical, no signs of hallucinations or delusions. Client Response/Progress/Benefit: []Client responded well to session, participating during the group activity and willing to complete the worksheet. Client completed the fear of failure worksheet and reported that fear of failure is keeping client from being my best self. Client able to identify barriers that reinforce his fear of failure which included: over-thinking, ruminating, and fortune telling. Client attentive during discussion of the different strategies to help overcome fear of failure. Group identified strategies such as; positive self-talk, thought challenge, opposite action, keeping track of wins, setting smart goals, and accepting that mistakes happen. Client appeared to benefit from learning ways to overcome fear of failure. Will continue IOP tx to maintain mood stability, consistently utilize healthy coping, and prevent decompensation. Narrative Note: []
--- NOTE | 2020-03-29 09:15 | BH.SGPN.GN ---
Behaviors/Verbalizations/Mental Status: []Client alert and oriented, casual dress, hygiene tended to. Eye contact good. Motor activity appropriate. Speech within normal limits. Affect constricted, mood euthymic. Thoughts linear, logical, no signs of hallucinations or delusions. Reviewed client?s symptom tracker, pt denies current suicidal thoughts or intention to date. Client Response/Progress/Benefit: []Pt responded well to session AEB pt openly sharing thoughts and feelings as well as listening attentively to peers. Pt identified mental health positive as following through with goal of establishing with a new primary care doctor that he has been putting off for a long time. Pt reported additional mental health positive as spending time with his dad. Pt shared his current stressor is feeling low energy from his medications which results in pt needing to be able to sleep at least 10-12 hours to feel rested. Progress noted with pt demonstrating improved mood stability. pt continue IOP to maintain stability, decrease impulsivity, and prevent decompensation. Narrative Note: []
--- NOTE | 2020-03-29 10:23 | BH.SGPN.GN ---
Behaviors/Verbalizations/Mental Status: []Client alert and orient. Appearance casual and appropriately groomed. Speech an appropriate rate and tone. Motor activity WNL. Mood euthymic, affect congruent and tired. No evidence of delusion or hallucinations. Client Response/Progress/Benefit: [] Pt receptive to session, participating throughout. Provided input as the group brainstormed the positive and negative aspects of stress on physical and mental health. Agreed with quote. Group worked together to define stress and noted that stress is: Anxiety, feeling overwhelmed, discomfort, pressure, or a feeling of being under pressure to meet expectations of self or others. Group did well to identify that the benefits of stress include: motivates us, heightened senses/focus, and keeps us safe. Identified personal impacts of too much stress as: hard time doing things on own, irritability, fatigue, and tunnel vision. Client identified current stressors as: Being late to things, daily tasks, COVID-19 and not being able to be around supports as often as I would like, *returning to work, racing thoughts, managing mental health symptoms, and maintaining relationships. Client reports belief that the level of their stress jar is ?50-60% full?maybe more like a [address]?. Able to recognize areas within control impacting his stress management such as lack of sleep. Progress in ongoing skill application and reports of continued mood stability. Recommended to continue IOP tx to improve healthy coping skill application, reduce mental health sx, and prevent decompensation. Narrative Note: []
--- NOTE | 2020-03-29 11:21 | BH.SGPN.GN ---
Behaviors/Verbalizations/Mental Status: []Client alert and oriented, casually dressed and groomed. Eye contact good. Motor activity appropriate. Speech within normal limits. Affect flat-tired AEB eyes closing at times, mood euthymic. Thoughts linear, logical, no signs of hallucinations or delusions. Client Response/Progress/Benefit: []Client engaged participant in session as evidenced by client listening attentively to others and providing input during session. Client worked with the group to further review ways in which unmanaged stress can manifest. Client reported when he does not manage his stress well client is angry, irritable, withdrawn, and exhausted. Client contributing during discussion about the 4 A's of managing stress. Client able to give different strategies for all the A's and connect it back to his life. Client wants to work on managing his stressor of feeling like there is not enough time in the day. Client reported he wants to practice the alter skill to manage his time better. Client plans to do this by prioritizing his daily tasks and setting limits for the number of things he can do in a day. Client shared this will help him because he tends to try and do too many things in a day and then beats himself up for not finishing everything. Client seemed to benefit from increased awareness of the impact of stress on mental health and increasing repertoire of stress management strategies. Progress noted as client continues to report medication compliance and has not been drinking energy drinks which positively impacts client?s mood. Client will continue IOP tx as client continues to struggle with sleep and can improve functioning. Narrative Note: []
--- NOTE | 2020-04-01 09:50 | BH.MDN_ITS ---
Multi-Disciplinary Note - Note 30-min Individual Time Started:: 09:45 Date: 04/01/20 Purpose of session/treatment goals addressed:: Purpose of session was to assess pt's current symptoms and stressors as well as review application of coping skills. Other topics included creating a self-care plan for return to work. Eye Contact:: Good Motor Activity:: Appropriate Appearance:: Casual Speech:: Appropriate Mood:: Euthymic, Anxious Affect:: Congruent Thoughts:: Linear, Logical, No evidence of hallucinations/delusions noted Staff Interventions:: Therapist asked open-ended and furthering questions to elicit information regarding current symptoms, stressors, and tx goal progress. Provided supportive feedback and empathic responses as pt discussed ongoing frustrations. Applied [place] techniques to aide client in identifying strategies for reducing stress and improving concentration in the workplace, improving self- care/emotion regulation before and after work, and reviewed coping skills he may apply when identifying possible warning signs. Client Response:: Pt receptive of session and actively engaged throughout discussion. He shared feeling encouraged by the progress he has made in IOP tx thus far and is motivated to continue applying the skills he has learned as he now realizes how some prior behaviors were negatively impacting his mental health and ability to function in the workplace. Pt discussed that prior to [facility] treatment he had not been aware of how distracting his behaviors had been to his co-workers and struggled at times with thoughts that people in the workplace were talking about him behind his back. Pt indicated not wanting to be a distraction or feel paranoid that others are judging or talking about him. Discussed that one way to prevent returning to prior behaviors which impacted his productivity and created tension in the workplace would be to create a coping plan for times in which he identifies possible warning signs for drew. Pt and therapist spent remainder of session reviewing behaviors that others had pointed out or he recognized in the past that may indicate potential warning signs. Pt discussed talking loudly, being off topic, listening to really loud music, and becoming easily distracted as primary warning signs in the workplace. He was able to work with therapist to discuss strategies for preventing each warning sign from intensifying as well as was able to identify workplace support people who could help him stay focused and aware of any possible warning signs. Pt identified that taking breaks, using positive affirmations, and making lists will help him remain focused and on task upon his return to work. Additionally discussed self-care strategies he may utilize before and after work hours in order to reduce stress and best prepare him for the work day. Pt provided with homework to review his return to work plan with his mother as well as create a ?Plan B? action plan. Risks/Concerns:: No risks or concerns noted. Pt denies any active SI, plan, or intent as of this date. 04/01/20. Progress Toward Goals/Plan:: Pt displaying progress in ability to use mindfulness skills and continuing to reach out to supports on a regular basis. Pt continues to do well in remaining compliant with medication as well as reports plan to maintain goal of caffeine and alcohol reduction. Additionally, pt did well to identify distress tolerance skills he may use upon returning to work which indicates increased insight. Pt recommended continued IOP tx to aid in maintaining stability during transition back to work, improve emotion regulation skills, and prevent decompensation. Time Stopped:: 10:15
--- NOTE | 2020-04-01 10:13 | BH.SGPN.GN ---
Behaviors/Verbalizations/Mental Status: []Client alert and oriented, casual appearance. Eye contact good. Motor activity appropriate. Speech within normal limits. Affect congruent, mood anxious, euthymic. Thoughts linear, logical, no signs of hallucinations or delusions. Client Response/Progress/Benefit: []Client responded well to session, contributing to discussion and engaged during the activity. Attentive during discussion on the quote and shared we can create even more anxiety for ourselves by making the decision not to change something?. Group identified the benefits of change which included: personal growth, improving mental health, reducing anxiety and depression, and getting unstuck. Worked with the group to identify barriers to change, which included: uncomfortable emotions, lack of motivation, doubt, mental health stigma, not prioritizing or making time for it, and negative thinking. Client participated along with group in activity where they identified and discussed the emotions related to change. Client gave an example of a time when he felt nervous and resisted change but that it ended up being a positive change and taught him the benefits of making changes. Benefited from increased awareness and understanding of emotions, benefits, and barriers related to change. Will continue IOP tx to further decrease intensity and duration of symptoms as well as reinforce healthy coping skills. Narrative Note: []
--- NOTE | 2020-04-04 09:12 | BH.SGPN.GN ---
Behaviors/Verbalizations/Mental Status: []Client alert and oriented, casual dress, hygiene tended to. Eye contact good. Motor activity appropriate. Speech within normal limits. Affect unable to gather due to wearing a mask for COVID-19 protocol, mood euthymic. Thoughts linear, logical, no signs of hallucinations or delusions. Reviewed client?s symptom tracker, no risk of suicidal ideation, plan or intent as of 04/04/20. Client Response/Progress/Benefit: []Client responded well to session, provided supportive statements to peers. Client shared he feels calm and collected but sleepy today. Client stated he continues to struggle with getting on a consistent sleep schedule and that last night he stayed up late plating video games. Client reported overall he has been doing much better and he reported multiple mental health wins today. Client stated he spent time with his family yesterday, cooked over the weekend, and help his grandma with technology problems. Client stated in the past he would have become easily agitated with his family and likely would have blown up. Client shared he looked forward to spending time with his family which has not always been the case. Client reported he has been using positive self-talk and opposite action more as well to combat negative self-talk. Client's stressor today is there's just not enough time in the day. Client shares that he sometimes feels like he cannot accomplish all he wants to. Appeared to benefit from connecting with peers and reflecting on progress. Will continue IOP tx to promote gains, further improve functioning, and monitor medications. Narrative Note: []
--- NOTE | 2020-04-04 10:20 | BH.SGPN.GN ---
Behaviors/Verbalizations/Mental Status: []Client alert and oriented, casual dress, hygiene tended to. Eye contact good. Motor activity appropriate. Speech within normal limits. Affect congruent, mood euthymic. Thoughts linear, logical, no signs of hallucinations or delusions. Client Response/Progress/Benefit: []Pt responded well to session as evidenced by pt providing input throughout session, listening attentively to others and engaging in activity. Pt reported he used to struggle with managing his emotions in which he would easily get frustrated with family members when asked to help with technical issues. Pt stated he would respond with an irritated tone towards others. Pt stated he has been recently improving his ability to manage emotions and not overreact. Pt seemed to benefit from increased awareness of the benefits of managing emotions and how unmanaged emotions can impact communication. Pt to continue IOP to maintain mood stability, continue use of healthy coping and prevent decompensation. Narrative Note: []
--- NOTE | 2020-04-04 11:20 | BH.SGPN.GN ---
Behaviors/Verbalizations/Mental Status: []Client alert and oriented, casually dressed and groomed. Eye contact good. Motor activity appropriate, restless. Speech within normal limits, at times rambling or needing to be redirected. Affect unable to assess as client wearing mask per COVID-19 protocol, mood anxious and euthymic. Thoughts linear, logical, no signs of hallucinations or delusions. Client Response/Progress/Benefit: [] Pt engaged in session AEB listening attentively to peers, providing input during session, and taking notes throughout. Attentive during psychoeducation on 4 zones of regulation. Pt able to identify how he feels and behaves in each zone. Pt agreed with fellow participants that having awareness of emotions in each zone will give client direction on what coping skills to use. Group identified coping skills they can use to support self in each zone which included: journaling, opposite action, exercising, listening to music, deep breathing, grounding, setting boundaries, and reaching out to supports. Pt shared one skill they would be able to use in each zone which included; for the blue zone: listening to upbeat music and reaching out to supports, green zone: continuing to take medication regularly and practicing mindfulness, yellow zone: take a break and avoid spending, and red zone: seek help and support. Benefited from increased education on zones of regulation or stages of alertness for emotions and healthy coping skills to use for each zone. Will continue IOP tx improve emotion regulation, reduce distortions that reinforce negative thoughts, and maintain safety. Narrative Note: []
--- NOTE | 2020-04-05 08:31 | BH.MDN ---
Multi-Disciplinary Note - Note 45-min Individual Time Started:: 09:16 Date: 04/05/20 Purpose of session/treatment goals addressed:: The purpose of this session was to assess current symptoms, stressors, and treatment progress. Another purpose was to review homework and identify environmental changes to promote return to work success. Eye Contact:: Good Motor Activity:: Appropriate Appearance:: Casual Speech:: Appropriate Mood:: Euthymic Affect:: Congruent Thoughts:: Linear, Logical, No evidence of hallucinations/delusions noted Staff Interventions:: Therapist asked open ended and furthering questions to elicit information regarding client current symptoms, stressors, and treatment progress. Provided supportive feedback and encouragement. Reviewed return to work ?plan B? provided for homework. Applied MD techniques to promote healthy change behaviors and identify and address environmental barriers in returning to work. Client Response:: Client was receptive of session, actively engaged throughout. He discussed feeling optimistic and looking forward to returning to work next week. Client indicated that this past week has felt like a step forward as he has been able to accomplish some of the remaining tasks on his ?to do? list. Shared feeling ore prepared to return to work next week and expressed that he reviewed his return to work plan with his mother over the weekend as well as completed the ?plan ?B?? crisis plan? portion. Client discussed his plan for if his coping skills and supports on the plan are not enough to prevent a potential manic episode or crisis escalation. Indicated that this plan includes having his brother confront him about concerns regarding client mental health, stay with his parents, or go to the E.D.Client went on to share that upon return to work he will be working from home due to the ongoing COVID-19 pandemic. Expressed some concern about becoming easily distracted if not working from the office. Discussed that he does not currently have a spot in his house he could use as his office space. Able to identify the importance of having a cleared area with few outside distractions to ease back into the work routine, maintain concentration, and prevent distraction. Identified that he would clear off the kitchen table as he is most likely to focus is sitting at a table and not in his room where there are other distractions. Identified that he can plan small breaks throughout the day to prevent burnout. 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 Risks/Concerns:: No risks or concerns noted. Pt denies any active SI, plan, or intent as of this date. Progress Toward Goals/Plan:: Progress noted. Pt shared improvements in overall mood and increased ability to complete daily responsibilities. Continues to report limited caffeine and no alcohol use. Client is. more consistent with healthy activities though continues to struggle with establishing a consistent daily routine Pt to continue IOP tx to prevent decompensation, decrease sx severity, and continue to promote use of healthy coping skills. Time Stopped:: 09:51
--- NOTE | 2020-04-05 10:16 | BH.SGPN.GN ---
Behaviors/Verbalizations/Mental Status: []Client alert and oriented, casual appearance. Eye contact good. Motor activity appropriate. Speech within normal limits. Affect congruent, mood euthymic. Thoughts linear, logical, no signs of hallucinations or delusions. Client Response/Progress/Benefit: [] Client connected with the group topic of crisis, provided examples to the group, and helped to define crisis as: an emergency, a last resort, feeling like you?ve run out of options, moved past your warning signs, a moment when you really need help, and ?the red zone?. Group identified examples of potential crises to include: worsening mental health, COVID-19, grief, loss of job, loss of physical functioning, loss of housing, end of relationship, or unexpected change. Client agreed with peers that anything can lead to a crisis. Connected with discussion on how coping with external crises by using unhealthy coping skills could result in a personal crisis. Group identified unhealthy coping skills to include; substance use, distracting with television, avoidance, anger outbursts such as road rage, isolation, or self-harming behaviors. Group reported that it is important to have awareness of warning signs which can prevent reaching crisis point. Group identified warning signs for crisis and Client completed the personal warning signs worksheet. Pt identified personal crisis warning signs to included; unusual drop in functioning, decreased sleep, and rapid mood changes. Benefited by increasing awareness of crisis and personal warning signs. Progress noted in client?s report of using skills learned and maintaining routine more consistently. Will continue IOP tx to promote mood stability and further decrease intensity of symptoms. Narrative Note: []
--- NOTE | 2020-04-05 11:16 | BH.SGPN.GN ---
Behaviors/Verbalizations/Mental Status: []Client alert and oriented, casually dressed and groomed. Eye contact good. Motor activity appropriate. Speech within normal limits. Affect unable to gather due to client wearing a mask which is part of the [facility] COVID Protocol. Mood euthymic. Thoughts linear, logical, no signs of hallucinations or delusions. Client Response/Progress/Benefit: []Client responded well to session as evidenced by client listening attentively to others and providing input throughout session. Client identified his warning signs for crisis and gained further awareness of earliest warning signs. Client appeared to connect that awareness of these warning signs can prevent further crisis and help client utilize healthy coping skills to break the cycle. Client shared his warning signs for drew look different than his warning signs for depression. Client created a crisis action plan to help client better manage warning signs for crisis. Client?s plan included: opposite action, reaching out to support, breathing and mindfulness, yoga and exercising daily, and maintaining a sleep routine. Client also helped peers come up with ideas for coping skills for their crisis action plans. Client appeared to benefit from creating a crisis action plan and increasing self-awareness. Client to continue IOP tx to promote gains, continue to improve daily functioning, and maintain mood stability. Narrative Note: []
--- NOTE | 2020-04-08 08:33 | BH.MDN ---
Multi-Disciplinary Note - Note 30-min Individual Time Started:: 09:12 Date: 04/08/20 Purpose of session/treatment goals addressed:: Purpose of session was to assess pt's current symptoms and stressors and treatment goal progress. Another purpose was to discuss managing setbacks. Eye Contact:: Fair Motor Activity:: Appropriate Appearance:: Casual Speech:: Appropriate, Soft Mood:: Irritable, Dysthymic Affect:: Congruent Thoughts:: Linear, Logical, No evidence of hallucinations/delusions noted Staff Interventions:: Therapist asked open-ended and furthering questions to elicit information regarding current symptoms, stressors, and tx goal progress. Provided supportive feedback and empathic responses as pt discussed ongoing frustrations. Applied [place] techniques to aide client in identifying strategies for reducing stress and maintaining motivation despite experiencing setbacks. Challenged pt use of distorted thinking patterns. Client Response:: Pt receptive of session and actively engaged throughout discussion. He shared feeling ?stressed? and ?a little discouraged? on this date. Explained that this is due to ?stressors continuing to pile? and noted that this past week has seemed as though ?a new stressor comes on as soon as a deal with one of the current ones?. Indicated that in the past day his air conditioning stopped working and he was informed that his credit cards are still being charged monthly subscription fees despite thinking he had canceled these as well as frozen all spending on his credit card accounts. Expressed frustration as well as feeling disappointed in himself for ?being so irresponsible with my finances earlier this year?. Noted feeling less motivated and emotionally exhausted as a result. Shared feeling as If he has a lot of responsibilities he needs to address right now. Pt initially struggled to identify ways to be more self-compassionate and reframe his negative thoughts, however with assistance was able to do so. Indicated that he can use this as an opportunity to focus on how much progress he has made in the past few weeks as well as a reminder of the consequences of not taking care of his mental health or paying attention to warning signs for drew. Willing to work with this therapist on prioritizing his current stressors and dividing them across the weekend. Noted he would feel most relieved is he were to tackle the finances and shared that after this session he could call the bank with his mom for additional support in remaining patient throughout. Additionally, pt and therapist discussed the importance of taking breaks and practicing self-care to reduce burnout. Pt noted that he could go for a hike with either his mother or a friend as being outdoors always helps to improve his mood and increase energy levels. Risks/Concerns:: No risks or concerns noted. Pt denies any active SI, plan, or intent as of this date. 04/08/20. Progress Toward Goals/Plan:: Pt displaying progress in ability to continue to make strides towards addressing daily stressors rather than avoiding or only focusing on enjoyable aspects of self-care. Pt continues to do well to reach out to his supports and is consistent with maintaining a limited daily caffeine intake. Reports current struggles with feeling overwhelmed by unexpected stressors and is struggling to maintain motivation, however did well to challenge these thoughts and identify healthy means of coping. Pt recommended continued IOP tx to aid in maintaining stability during transition back to work, improve emotion regulation skills, and prevent decompensation. Time Stopped:: 09:40
--- NOTE | 2020-04-11 10:12 | BH.SGPN.GN ---
Behaviors/Verbalizations/Mental Status: []Client alert and oriented, casual dress, hygiene tended to. Eye contact good. Motor activity appropriate. Speech within normal limits. Affect congruent, mood euthymic. Thoughts linear, logical, no signs of hallucinations or delusions. Client Response/Progress/Benefit: []Client was an active participant in group activity and provided input to discussion. Client connected with the topic of obstacles and solutions. Client shared current reality as starting to feel happy and more content with his life, but still has stressors he needs to manage in a healthy manner. Client's realistic, desired reality is to maintain mood stability, increase daily activity, and improve connection with others. Benefited from group as client was able to identify current mental health state and identify goals for her mental health. Progress noted with pt having increased awareness of the progress he has made in IOP and has awareness of what he still needs to work on to maintain progress. Will continue IOP tx to maintain mood stability, continue use of healthy skills, and prevent decompensation. Narrative Note: []
--- NOTE | 2020-04-11 11:15 | BH.SGPN.GN ---
Behaviors/Verbalizations/Mental Status: []Client alert and oriented, casually dressed and groomed. Eye contact good. Motor activity appropriate. Speech within normal limits. Affect unable to gather due to wearing a mask as part of COVID-19 protocol, mood tire but euthymic. Thoughts linear, logical, no signs of hallucinations or delusions. Client Response/Progress/Benefit: []Client was an active participant in group discussion and activity. Engaged during activity and provided ideas on how to cope with internal barriers that keep clients stuck from moving towards goals. Barriers identified by the group included: lethargy, not caring, poor boundaries, poor time management, lack of motivation, and co-dependence. Strategies identified for overcoming these barriers included: opposite action, positive self-talk, making a list of why it is important to be present, self-compassion, pros and cons lists, and getting out of the house. Client reported he wants to work on overcoming the barrier of lethargy by spending more time outside his house. Client shared he can go for hikes or go to his parents house which might help client feel less fatigued. Benefited from group by identifying obstacles and solutions to desired reality. Will continue IOP tx to promote gains, maintain medication compliance, and further increase healthy coping skills. Narrative Note: []
--- NOTE | 2020-04-13 09:05 | BH.SGPN.GN ---
Behaviors/Verbalizations/Mental Status: []Client alert and oriented, casually dressed, appropriate grooming. Eye contact good. Motor activity appropriate. Speech within normal limits. Affect congruent, mood euthymic and positive. Thoughts linear, logical, no signs of hallucinations or delusions. Reviewed client?s symptom tracker, pt denies current suicidal thoughts or intention to date. Client Response/Progress/Benefit: []Patient responded well to session as evidenced by him listening attentively to others and sharing thoughts and feelings. Patient reported mental positive as returning to work after being off for almost 2 months. Patient reported he was excited to get back and his first day went a lot better than he expected. Patient said he had a lot of anxiety prior to his first day because he was worried others would have worked on his projects without his input and worried how others would respond to him being back. Patient reported his coworkers were supportive and he felt very welcomed back. Patient identified emotion today is positive. Progress noted with patient being able to return to work successfully yesterday and manage anxiety in the moment. Patient to continue IOP level of care to maintain mood stability, continued use of healthy coping skills, and prevent decompensation. Narrative Note: []
--- NOTE | 2020-04-13 10:15 | BH.SGPN.GN ---
Behaviors/Verbalizations/Mental Status: []Eye contact is good. Motor activity is appropriate. Appearance is casual. Speech is Appropriate. Mood is euthymic. Affect is congruent. Thoughts are linear and logical. No evidence of psychosis. Client Response/Progress/Benefit: []Pt was an active participant in group discussion and activity, providing input throughout. Pt worked with peers on defining what goals are and indicated that ?goals are something you want to accomplish or change in your life?. Brainstormed with the group the benefits of goal-setting which included: increased motivation, feeling accomplished, gives us a sense of direction, and increase positive thinking. Pt noted connecting with personal goal setting benefit of: increases your motivation and gives you something to work towards. Able to provide feedback during psychoeducation on SMART goals. Pt appeared to benefit from learning the mental health benefits of setting goals that are specific, measurable, attainable, relevant, and time-specific. Will continue in IOP to continue to promote healthy change behaviors, maintain stability, and prevent decompensation. Narrative Note: []
--- NOTE | 2020-04-13 11:05 | BH.MDN_ITS ---
Multi-Disciplinary Note - Note 30-min Individual Time Started:: 12:16 Date: 04/13/20 Purpose of session/treatment goals addressed:: Purpose of session was to assess pt's current symptoms and stressors and treatment goal progress. Another purpose was to process client?s first day back to work and identify areas of progress as well as strategies for continuing to improve transition back to work. Eye Contact:: Good Motor Activity:: Appropriate Appearance:: Casual Speech:: Appropriate Mood:: Euthymic Affect:: Congruent Thoughts:: Linear, Logical, No evidence of hallucinations/delusions noted Staff Interventions:: Therapist asked open-ended and furthering questions to elicit information regarding current symptoms, stressors, and tx goal progress. Commended pt on skill application and provided supportive feedback and empathic responses as pt discussed areas of difficulty. Applied ME techniques to aide client in identifying additional strategies for improving overall transition back to work. Client Response:: Pt receptive of session and actively engaged throughout discussion. He shared feeling ?relieved and really positive? on this date as his first day back to work had gone well. Explained that his boss anf coworkers had been very ?supportive in getting me back to work? 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 Pt did well to reflect upon the overall day and identify areas in which he did well to set himself up for success through utilization of his skills and asking for help. Shared that he was able to call and ask his boss for guidance when needed which is progress as pt has a hx of avoiding help due to feeling he should be able to solve the problem on his own. Additionally, identified taking breaks throughout the day as needed in order to stay on task and prevent feeling overwhelmed. Expressed that his largest area of concerns was in not having much time in the morning to work as he woke up and immediately turned on his laptop without taking any time to get reading in the morning. Able to identify how this might impact burnout in the future as well as prevents him from having time for relaxation in the morning to ease into the day. Additionally, noted that immediately starting work upon waking is not realistic once he returns to working in the office in approximately 3 weeks. Receptive of discussing an earlier wake time and creating a morning routine to begin preparation for returning to the office. Reviewed SNAP acronym for the important components of a balanced daily routine which included Sleep, Nutrition, Activity, and People. Pt discussed wanting to inc orporate mindfulness exercises into his morning routine as he has found these to be helpful in relaxing him. Risks/Concerns:: No risks or concerns noted. Pt denies any active SI, plan, or intent as of this date. 04/13/20. Progress Toward Goals/Plan:: Pt displaying progress in ability to continue to make strides towards maintaining stability and improving overall mental wellness. Pt continues to do well to reach out to his supports and is consistent with maintaining a limited daily caffeine intake. He has successfully returned to work this week without problem and has reported actively applying healthy coping skills as well as reaching out to supports in order to best make the transition back to the workplace. Continues to struggle at times with lack of motivation in consistently applying skills when not encouraged by others, though is making progress in this area. Pt recommended continued IOP tx to aid in maintaining stability during transition back to work, improve emotion regulation skills, and prevent decompensation. Time Stopped:: 12:51
--- NOTE | 2020-04-13 11:14 | BH.SGPN.GN ---
Behaviors/Verbalizations/Mental Status: []Eye contact is good. Motor activity is appropriate. Appearance is neat. Speech is Appropriate. Mood is euthymic. Affect unable to gather due to wearing a mask as COVID protocol. Thoughts are linear and logical. No evidence of psychosis Client Response/Progress/Benefit: []Client was engaged and contributing to discussion, did well to develop a personal SMART goal. Client chose the goal; to practice mindfulness two times a day. When asked why this goal was important and beneficial to client's mental health he stated it will reduce anxiety, make him feel more centered, and improve mood. Identified the following barriers to completing this goal which included; forgetting to do it and time. Identified solutions to barriers which included; setting reminders on his phone, letting his supports know about his goals, making time by moving his schedule around, and finding new apps to try. Benefited from this group by developing a short-term SMART goal related to mental health and from problem-solving barriers. Client returned to work yesterday which is significant progress. Will continue IOP tx to promote gains and further improve work-related functioning. Narrative Note: []
--- NOTE | 2020-04-20 09:07 | BH.SGPN.GN ---
Behaviors/Verbalizations/Mental Status: []Client alert and oriented, casually dressed. Eye contact good. Motor activity appropriate. Speech within normal limits. Affect congruent, mood euthymic. Thoughts linear, logical, no signs of hallucinations or delusions. Reviewed client?s symptom tracker, no risk for suicidal ideation, plan, or intent as of 04/20/20. Client Response/Progress/Benefit: []Client responded well to session, attentive and willing to share with the group. Client reports feeling positive today as his first week back at work had been successful. Expressed this is ?kind of a stressor? as pt returns to work fulltime next week and is concerned about feeling overly tired when doing so. Expressed looking forward to speaking with the psychiatrist regarding his ongoing fatigue. Pt did well to identify current mental health wins as using deep breathing techniques to better manage work related stressors as well as buying a new air conditioner for his house to help improve his sleep since the weather has been so hot. Pt appeared to benefit from identifying areas of progress as well as the structured group setting. Will continue IOP tx to maintain mood stability and improve mental health sx management as he transitions back to full-time employment. Narrative Note: []
--- NOTE | 2020-04-20 10:15 | BH.SGPN.GN ---
Behaviors/Verbalizations/Mental Status: []Client alert and oriented, casually dressed. Eye contact fair. Motor activity appropriate. Speech within normal limits. Affect congruent, mood euthymic. Thoughts linear, logical, no signs of hallucinations or delusions. Client Response/Progress/Benefit: []Pt engaged in session AEB pt listening attentively to others and providing input throughout session. When processing quote pt stated when you bottle up emotions it can turn into an explosion which can hurt self and others. Pt shared emotions that are underlying anger include: anxiety, feeling helpless, overwhelmed, disappointed, and invalidated. Pt identified the following as ways he expresses anger: yelling, aggressive behavior, lashing out, throw stuff and slam doors. Pt seemed to benefit from increased awareness of how unmanaged anger can impact self and others. Pt to continue IOP to maintain gains, maintain mood stability and prevent decompensation. Narrative Note: []
--- NOTE | 2020-04-20 11:15 | BH.SGPN.GN ---
Behaviors/Verbalizations/Mental Status: []Client alert and oriented, casually dressed and groomed. Eye contact good. Motor activity appropriate. Speech within normal limits. Affect unable to gather due to client wearing a mask for COVID-19 protocol. mood euthymic. Thoughts linear, logical, no signs of hallucinations or delusions. Client Response/Progress/Benefit: []Client was an engaged participant throughout group AEB client providing input throughout discussion. Client helped the group identify common warning signs of anger and identified his personal warning signs of anger which included; increased heart rate, restlessness, tension, and change in appetite. Group brainstormed with group healthy coping skills to help manage anger which included: deep breathing, opposite action, exercise, taking breaks, and redirecting anger. Client selected practicing mindfulness as the skill he wants to incorporate this week to manage anger. Client reflected on his progress since the last time he had this group and client self-reports that he has not been experiencing much anger recently which is progress. Client appeared to benefit from identifying different techniques to manage anger as well as gaining awareness of warning signs. Recommended continued IOP until the end of the week to promote gains, reinforce healthy coping skills, and establish aftercare. Narrative Note: []
--- NOTE | 2020-04-20 12:39 | PCM.BH.PN ---
Progress Note Progress Note: History of Present Illness/Interim History: [] Patient is a 29-year-old male who is seen in follow-up at the [facility] behavioral health IOP program. Patient is being treated for bipolar 1 disorder most recent episode manic with psychosis (resolving). The patient states that he feels he is doing very well and he feels he may finish the IOP program next week. He feels that his mood is stable and much improved. He denies any symptoms of drew or depression lately. He remains sober from alcohol and energy drinks. He has been compliant with his meds and is getting along well with his parents. Sleep remains good and concentration is good. His thought process feels normal to him. 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 Discussed with the patient that the medication could make him have a little harder time at working fast but he also admits that he is a perfectionist and is kind of hard on himself in terms of his achievements at work. He denies any symptoms of drew, depression, suicidal or homicidal ideation, hallucinations or delusions. Current Psychiatric Medications: [] Depakote ER 1500 mg p.o. nightly; Risperdal 4 mg p.o. nightly; Vistaril 50 mg p.o. nightly as needed Mental Status Examination: [] Patient is a 29-year-old male who appears normal for stated age and is wearing a mask during the interview due to the pandemic. He has good eye contact and is casually dressed and groomed with good hygiene. He is cooperative and pleasant during the interview and has no psychomotor agitation or retardation. His speech is normal rate and rhythm with no pressure and fluent. His thought process is goal-directed and organized. His mood is euthymic. His affect is full and normal. Thought content: No evidence of suicidal or homicidal ideation. No evidence of hallucinations or delusions. Judgment: Intact. Insight: Good. Impulsivity: Low. . Diagnoses: [] [facility] I: [] Bipolar 1 disorder, most recent episode manic, severe with psychosis (resolved); anxiety disorder NOS; alcohol use disorder; caffeine use disorder [facility] II: [] Deferred negative [facility] III: [] [facility] IV:[]] Primary support, work and financial issues Plan: [] Patient will continue the IOP program as the structure, support, education, individual and group therapy will hopefully prevent worsening of the patient's symptoms which might require hospitalization. The patient felt safe during the interview and if at any time he does not feel safe he will let us know or go to the emergency room. The risk, options, and possible complications and side effects of the medication were discussed with the patient again and he understands and accepts these. He agrees to continue his current doses of medication. Discussion was had that the patient feels he may be bipolar and I discussed with the patient that he may be bipolar but I do not have enough evidence or criteria for to give him that diagnosis at this time. He will continue to follow-up with his outpatient psychiatric provider as scheduled. 2 prescriptions were good given to refill his Depakote and Risperdal until he gets to his next appointment with his outpatient psychiatrist which is on May 04, 2020. His outpatient provider also checks his Depakote labs regularly.
--- NOTE | 2020-04-22 10:16 | BH.SGPN.GN ---
Behaviors/Verbalizations/Mental Status: []Client alert and oriented, casually dressed and groomed. Eye contact good. Motor activity appropriate. Speech within normal limits. Affect unable to gather due to wearing a mask for COVID-19 protocol, mood euthymic. Thoughts linear, logical, no signs of hallucinations or delusions. Client Response/Progress/Benefit: []Client was an active participant AEB providing some input throughout discussion, taking notes, and actively listening. Client participated in group discussion regarding mental health benefits of change which included improved functioning, less anxiety and depression, personal growth, and happiness. Client identified small personal changes to improve mental health as: get eight hours of sleep on a consistent basis, eat more home-cooked meals, and to practice mindfulness in the mornings. Identified current barriers keeping client from making those changes to be: apathy, not having enough time in the day, and lack of motivation. Client appeared to benefit from gaining awareness of personal changes that would improve mental health and the barriers keeping client stuck. Will discharge from IOP tx today as client has made significant progress towards his treatment goals and no longer meets criteria for IOP level of care. Narrative Note: []
--- NOTE | 2020-04-22 11:18 | BH.SGPN.GN ---
Behaviors/Verbalizations/Mental Status: []Client alert and oriented, casually dressed and groomed. Eye contact poor. Motor activity appropriate. Speech within normal limits. Affect unable to gather due to client wearing a mask for COVID-19 protocol, mood euthymic. Thoughts linear, logical, no signs of hallucinations or delusions. Client Response/Progress/Benefit: []Client responded well to session, engaged in discussion. Client did well to select one change he would like to make and identified a SMART goal to help client make this change. Shared he wants to work on cooking more meals at home. Barriers for this change included: lack of motivation, no food at home, dirty dishes, and lack of energy. Discussed that this change would help improve client's physical health and reduce spending. Client?s SMART goal was to cook three meals a week at home. Client benefited from working with group to identify strategies to overcome barriers to change and create a plan for implementing one small change promoting personal growth. Client will discharge from IOP tx today as he has made significant progress and no longer meets criteria for IOP level of care. Narrative Note: []
--- NOTE | 2020-04-22 13:16 | BH.MDN ---
Multi-Disciplinary Note - Note 30-min Individual Time Started:: 12:25 Date: 04/22/20 Purpose of session/treatment goals addressed:: The purpose of this session was to assess current symptoms, stressors, and treatment progress. Another purpose was to review aftercare plan and identify strategies for success following discharge. Eye Contact:: Good Motor Activity:: Appropriate Appearance:: Casual Speech:: Appropriate Mood:: Euthymic Affect:: Congruent Thoughts:: Linear, Logical, No evidence of hallucinations/delusions noted Staff Interventions:: Therapist asked open ended and furthering questions to elicit information regarding client perception of current symptoms, stressors, application of coping skills, and treatment goal progress. Provided supportive feedback and used strengths-based approaches to assist pt in identifying areas of progress. Provided pt with the DSM-5 cross cutting analysis to complete and aided pt in comparing results from time of intake to discharge. Used IA techniques to promote healthy change behaviors and aid Pt in identifying barriers as well as strategies for ongoing tx progress. Challenged thought distortions. Worked with pt to complete discharge planning. Client Response:: Client was receptive of meeting and responded well to session. He discussed feeling excited about this being his lat day in IOP treatment and proud of the progress he has made since beginning the treatment process. Pt discussed feeling as though he has made the most progress in regard to increased ability to complete daily responsibilities including paying all financial responsibilities and budgeting his finances more appropriately. Discussed additional progress in improve concentration and patience, healthier boundary setting and decision making, as well as increased mood stability. Shared that several weeks ago he was struggling with significant frustration and impatience due to feeling unsure about whether he would be allowed to return to work. Noted pride regarding his ability to smoothly return on a part-time basis and is looking forward to returning full-time next week. Pt and therapist discussed areas in which he may struggle as well as potential barriers to be aware of. Pt shared that decreased attention and increased spending are two signals that he is struggling. Noted the importance of being open to observations and concerns by his supports as pt does not always notice his own warning signs. Pt discussed a current concern from his mother regarding pt consuming alcohol. Pt indicated wanting to begin consuming alcohol in moderation, he was open to discussing the potential risks of pt returning to old drinking habits if he were to do so. Additionally, pt and therapist discussed the potential impacts of alcohol on triggering a manic episode and reviewed the costs and benefits of alcohol consumption. Pt noted drinking two beers last night and expressed that he would think about the potential risks and consider limiting consumption to weekends only. Pt appeared to struggle with some justification for returning to regular alcohol use. Pt however did report plans to continue limiting his caffeine consumption. He worked with therapist to reviewed skills to use during times in which he recognizes warning signs and reviewed his bipolar management plan. Pt and therapist reviewed pt overall areas of progress since beginning IOP tx as well as compared DSM-5 cross cutting scores from admission to current date. Pt reports feeling proud of the reduction in symptoms as although overall scored did not decline, pt saw a significant reduction in sx of anxiety and drew. Noted beliefs that he may have minimized level of sx severity at time of intake. Pt shared that he has been using mindfulness, reaching out to supports, taking breaks most often to regulate himrself when feeling overwhelmed or bored. Expressed feeling ready to discharge from IOP tx and continue with therapy on an outpatient basis at [facility]. Risks/Concerns:: No risks or concerns noted. Pt denies any active SI, plan, or intent as of this date. 04/22/20. Progress Toward Goals/Plan:: Progress noted. Pt shared continued improvements in overall mood management, increased ability to manage daily stressors, and continued healthy decision making and stability. No longer reports impulsive spending or excessive caffeine consumption. Pt did report consuming alcohol last night, though was willing to review potential consequences of alcohol consumption on maintaining progress. Discussed improved confidence in his ability to independently complete daily responsibilities as well as continued improvements in healthy decision making and reduced impulsivity. Pt has seen an overall 63% reduction in sx since admission to program. Pt to discharge from program given progress and is to continue outpatient tx with [facility], next appointment is May 04. [facility], next appointment is May 04. Time Stopped:: 12:53
--- NOTE | 2020-04-22 13:21 | BH.DS ---
Discharge Summary - Demographics Date of Admission:: 03/18/20 Discharge Date: 04/22/20 Presenting Problems at Admission:: The patient is a 29-year-old male with a history of bipolar 1 disorder, manic with psychosis, alcohol use disorder, and caffeine use disorder who was admitted to the inpatient psychiatric unit at [place] on February 16, 2020 and discharged on February 24, 2020. This was the patient's third psych admit in 6 weeks. The patient was previously in the IOP program and was escorted to the ER from the [facility] IOP program. He participated in IOP tx from January 31 to February 16, 2020. At the time of first admission patient presented as severely manic and psychotic. At this admission, pt endorses poor decision making specifically that of not sleeping or taking his medications, anxiety, impulsivity, irritability, paranoia, delusional thoughts, rapid speech, and tangential thoughts impacting ability to function at baseline. Pt had been consuming an excess of caffeine prior to admission and reports he has not consumed an energy drink since 02/29/20. Discharge Diagnoses:: Bipolar 1 disorder, most recent episode manic, severe with psychosis; anxiety disorder, NOS; alcohol use disorder; caffeine use disorder Reason for Discharge:: Pt has made significant progress with decreased impulsivity and improved emotion regulation and stability. No longer meets criteria for IOP level of care. - Treatment Progress During Treatment & Response: Pt has made progress since beginning treatment AEB self-report and DSM-5 scores indicating decreased depression, decreased impulsivity, decreased anxiety, and reduced levels of irritability since beginning IOP tx program. This is evidenced by pt's self-report scores on DSM 5 cross-cutting measure, however pt overall score reduction may not be a complete and accurate representation of progress as pt admits to minimizing severity during intake assessment. Pt's scores at discharge indicate all prior reported symptoms have reduced from a score of 1 in their repecting areas to scores of zero, however pt reports increased smoking of cigars which increased overall score value at discharge. Pt has most notable seen improvements in his ability to complete daily responsibilities, more responsibly manage his finances, and improved impulse control. These areas of improvement have allowed for pt to return to work successfully as well as improved relationships with supports. a 63% reduction in overall scores with depressive symptoms decreasing by 63%, a 100% reduction in suicidal thoughts, 70% reduction in anxiety, and 25% reduction in irritability. Pt responded well to program AEB pt contributing during discussion, willing to challenge himself to try new coping skills, as well as completing all assigned homework. Pt initially struggled with removing toxic people and behaviors from his daily routine but has significantly improved in this area. Some concern on progress maintenance regarding pt recent return to alcohol consumption. Issues Still to be Addressed:: Pt could benefit from continued focus on identifying and challenging distorted and negative thoughts, especially when tempted to rationalize unhealthy behaviors. Pt additionally struggles with impulse control and emotion regulation when feeling excited or overwhelmed. He could benefit from increasing positive supports and continuing to work on internal boundary setting skills, specifically regarding eliminating toxic substance use. Discharge Recommendations/Instructions:: Pt to discharge from program given progress made and is to continue outpatient tx with [facility], as well as is to continue medication [facility] with [facility]. Discharge Handout: Complete Discharge Handout with client on aftercare options and continuity of care.
--- NOTE | 2020-04-24 13:34 | BH.IGGP_ITS ---
Aftercare Plan - Demographics Treatment End Date:: 04/22/20 Psychiatrist:: Ramya Peters Psychiatrist Office #:: [phone] [facility]/IOP Therapist:: Crissy Manzanares Therapist Phone #:: [phone] - Medications Home Medications: Home Medications Divalproex Sodium [Depakote ER] 1,500 mg PO QHS 02/03/20 Hydroxyzine Pamoate 50 mg PO QHS 02/03/20 Multivitamin [Once Daily] 1 tab PO DAILY 02/03/20 Risperidone [Risperdal] 4 mg PO QHS 03/02/20 Divalproex Sodium [Depakote ER] 500 mg PO QHS 30 Days #90 tab.er.24h 04/20/20 Hydroxyzine Pamoate [Vistaril] 50 mg PO 4X/DAY PRN PRN 30 Days #90 cap 04/20/20 Risperidone [Risperdal] 4 mg PO DAILY 30 Days #30 tab 04/20/20 - Plan Details Progress/Aftercare Plan Details:: Pt has made progress since beginning treatment AEB self-report and DSM-5 scores indicating decreased depression, decreased impulsivity, decreased anxiety, and reduced levels of irritability since beginning IOP tx program. This is evidenced by pt's self-report scores on DSM 5 cross-cutting measure, however pt overall score reduction may not be a complete and accurate representation of progress as pt admits to minimizing severity during intake assessment. Pt's scores at discharge indicate all prior reported symptoms have reduced from a score of 1 in their repecting areas to scores of zero, however pt reports increased smoking of cigars which increased overall score value at discharge. Pt has most notable seen improvements in his ability to complete daily responsibilities, more responsibly manage his finances, and improved impulse control. These areas of improvement have allowed for pt to return to work successfully as well as improved relationships with supports. Strategies for Success:: ?Opposite Action!!! ? do what will help you, even when your brain is saying don?t do it, even when it feels uncomfortable, even when you are tempted to take the easy or toxic way out. ?Setting and following through with boundaries with yourself and others ? remember not to take on things that may be causing you unnecessary extra stress or let in toxic ways of coping or unhealthy relationships. ?Challenge potentially irrational thought patterns by trying to look at things from the other perspective and listening to others when they tell you they are concerned about you or recognize a potential warning sign. ?Keep reaching out to HEALTHY friends and supports! There are people who care and want to see you doing well! ?Continue to make time for yourself! Self-care is pak to maintaining progress and staying level! This includes sometimes doing those hard things like not drinking alcohol and caffeine BUT remember how far not doing those things has helped you come! ASK YOURSELF ?What could I be losing if I do this and am I really okay with those potential consequences??. ?Small steps to physical, mental, and emotional wellness. Check-in with yourself regularly in order to identify warning signs and what may be stressing you out. Allow yourself to take small breaks if you find yourself getting overwhelmed. - Appointments Appointments/Referrals to Other Services:: Pt to discharge from program given progress made and is to continue outpatient tx with [facility], as well as is to continue [facility] with [facility].
== END 2020-04-22 14:00 | disposition home or self-care (01) ==
LOC: BHIOP 09:00
PROVIDERS: PCP Family Medicine; Referring Provider Psychiatry & Neurology Psychiatry; Visit Provider Psychiatry & Neurology Psychiatry
DX: F31.2 Bipolar disorder, current episode manic severe with psychotic features (principal); F41.9 Anxiety disorder, unspecified; Z72.89 Other problems related to lifestyle; F15.90 Other stimulant use, unspecified, uncomplicated
CPT/HCPCS: H0035; 90832; 90834; 90853

== ENCOUNTER → 2020-04-01 09:18 | Outpatient (CLI) | payer OTHER, SELFPAY | PROVIDERS: PCP Family Medicine; Referring Provider Psychiatry & Neurology Psychiatry; Visit Provider Psychiatry & Neurology Psychiatry | DX: Z79.899 Other long term (current) drug therapy (principal) ==

== ENCOUNTER → 2020-04-07 13:19 | Outpatient (CLI) | payer OTHER, SELFPAY ==
[2020-04-07 15:29] LABS: Anion Gap 8 (5-15); BUN 19 mg/dL (7-18); BUN/Creat Ratio 20.9 RATIO (10-20); Calcium,Total 8.7 mg/dL (8.5-10.1); Chloride 104 mmol/L (98-107); Cholesterol 220 mg/dL (200); Creatinine, Serum 0.91 mg/dL (0.70-1.30); EST Glomerular Filtration Rate 104 mL/min (>60); Est Glom Filt Rate - Afr Amer 126 mL/min (>60); Glucose 90 mg/dL (74-106); High Density Lipoprotein 56 mg/dL; Potassium 3.9 mmol/L (3.5-5.1); Sodium Level 139 mmol/L (136-145); Triglycerides 182 mg/dL; Very Low Density Lipoprotein 36 mg/dL (5-40)
== END ==
PROVIDERS: PCP Family Medicine; Referring Provider Family Medicine; Visit Provider Family Medicine
DX: Z00.00 Encounter for general adult medical examination without abnormal findings (principal)
CPT/HCPCS: 36415; 80048; 80061

== ENCOUNTER → 2020-09-02 14:33 | Outpatient (CLI) | payer OTHER, SELFPAY ==
[2020-09-02 14:56] LABS: Hematocrit 46.5 % (40-54); Hemoglobin 15.7 g/dL (13.0-16.5); Mean Corp Hgb Conc 33.8 g/dL (32-36); Mean Corpuscular Hgb 32.4 pg (27.0-32.0); Mean Corpuscular Volume 95.9 fL (80-94); Platelet Count 217 K/mm3 (150-450); RBC Distribution Width CV 12.5 % (11.6-14.6); RBC Distribution Width SD 43.8 fl (35.1-43.9); Red Blood Count 4.85 M/mm3 (4.6-6.2); White Blood Count 5.7 K/mm3 (4.4-11.0)
[2020-09-02 15:42] LABS: Valproic Acid (Depakene) Level 90 ug/mL (50-100)
[2020-09-02 15:49] LABS: AST(SGOT) 27 U/L (15-37); Alanine Aminotransfer ALT/SGPT 42 U/L (16-61); Albumin, Serum 3.5 g/dL (3.2-5.0); Alkaline Phosphatase 84 U/L (45-117); Anion Gap 5 (5-15); BUN 15 mg/dL (7-18); BUN/Creat Ratio 16.9 RATIO (10-20); Calcium,Total 8.8 mg/dL (8.5-10.1); Chloride 106 mmol/L (98-107); Creatinine, Serum 0.89 mg/dL (0.70-1.30); EST Glomerular Filtration Rate 106 mL/min (>60); Est Glom Filt Rate - Afr Amer 128 mL/min (>60); Globulin 3.5 g/dL (2.2-4.2); Glucose 97 mg/dL (74-106); Potassium 3.8 mmol/L (3.5-5.1); Sodium Level 136 mmol/L (136-145)
== END ==
PROVIDERS: PCP Family Medicine; Visit Provider Registered Nurse
DX: F31.9 Bipolar disorder, unspecified (principal); Z79.899 Other long term (current) drug therapy
CPT/HCPCS: 36415; 80053; 80164; 85027

== ENCOUNTER → 2021-04-13 16:47 | Outpatient (CLI) | payer OTHER, SELFPAY ==
[2021-04-13 17:19] LABS: Hematocrit 48.2 % (40-54); Hemoglobin 16.4 g/dL (13.0-16.5); Mean Corpuscular Hgb 31.7 pg (27.0-32.0); Mean Corpuscular Volume 93.2 fL (80-94); Mean Platelet Vol. 11.8 fl (6.2-12.0); Platelet Count 194 K/mm3 (150-450); RBC Distribution Width CV 12.2 % (11.6-14.6); RBC Distribution Width SD 42.4 fl (35.1-43.9); Red Blood Count 5.17 M/mm3 (4.6-6.2); White Blood Count 6.8 K/mm3 (4.4-11.0)
[2021-04-13 17:58] LABS: Valproic Acid (Depakene) Level 77 ug/mL (50-100)
[2021-04-13 18:10] LABS: ALB/GLOB Ratio 0.9 RATIO (0.9-2.4); AST(SGOT) 35 U/L (15-37); Alanine Aminotransfer ALT/SGPT 69 U/L (16-61); Albumin, Serum 3.4 g/dL (3.2-5.0); Alkaline Phosphatase 102 U/L (45-117); Anion Gap 8 (5-15); BUN 16 mg/dL (7-18); BUN/Creat Ratio 17.5 RATIO (10-20); Chloride 108 mmol/L (98-107); Creatinine, Serum 0.92 mg/dL (0.70-1.30); EST Glomerular Filtration Rate 102 mL/min (>60); Est Glom Filt Rate - Afr Amer 123 mL/min (>60); Free T3 3.3 pg/mL (2.18-3.98); Globulin 3.7 g/dL (2.2-4.2); Glucose 100 mg/dL (74-106); Potassium 3.8 mmol/L (3.5-5.1); Protein, Total 7.1 g/dL (6.4-8.2); Sodium Level 137 mmol/L (136-145); T4 Free Direct 0.93 ng/dL (0.76-1.46); Thyroid Stim Hormone (TSH) 2.61 uIU/mL (0.358-3.74)
== END ==
PROVIDERS: PCP Family Medicine; Visit Provider Registered Nurse
DX: E03.9 Hypothyroidism, unspecified (principal); F31.9 Bipolar disorder, unspecified
CPT/HCPCS: 36415; 80053; 80164; 84439; 84443; 84481; 85027

== ENCOUNTER → 2022-10-02 | Outpatient (CLI) | payer OTHER, SELFPAY ==
[2022-10-02 16:10] LABS: Hematocrit 46.6 % (40-54); Hemoglobin 16.1 g/dL (13.0-16.5); Mean Corp Hgb Conc 34.5 g/dL (32-36); Mean Corpuscular Hgb 31.8 pg (27.0-32.0); Mean Corpuscular Volume 92.1 fL (80-94); Mean Platelet Vol. 11.7 fl (6.2-12.0); Platelet Count 235 K/mm3 (150-450); RBC Distribution Width CV 12.6 % (11.6-14.6); RBC Distribution Width SD 42.8 fl (35.1-43.9); Red Blood Count 5.06 M/mm3 (4.6-6.2)
[2022-10-02 17:23] LABS: Valproic Acid (Depakene) Level 74 ug/mL (50-100)
[2022-10-02 17:30] LABS: ALB/GLOB Ratio 0.9 RATIO (0.9-2.4); AST(SGOT) 36 U/L (15-37); Alanine Aminotransfer ALT/SGPT 75 U/L (16-61); Albumin, Serum 3.4 g/dL (3.2-5.0); Alkaline Phosphatase 116 U/L (45-117); Anion Gap 9 (5-15); BUN 15 mg/dL (7-18); BUN/Creat Ratio 15.8 RATIO (10-20); Chloride 104 mmol/L (98-107); Creatinine, Serum 0.95 mg/dL (0.70-1.30); EST Glomerular Filtration Rate 97 mL/min (>60); Est Glom Filt Rate - Afr Amer 117 mL/min (>60); Globulin 3.8 g/dL (2.2-4.2); Glucose 107 mg/dL (74-106); Potassium 3.4 mmol/L (3.5-5.1); Protein, Total 7.2 g/dL (6.4-8.2); Sodium Level 136 mmol/L (136-145)
== END | disposition home or self-care (01) ==
LOC: LAB 13:37
PROVIDERS: PCP Family Medicine; Referring Provider Registered Nurse; Visit Provider Registered Nurse
DX: F31.9 Bipolar disorder, unspecified (principal)
CPT/HCPCS: 36415; 80053; 80164; 82140; 85027

== ENCOUNTER → 2023-03-14 | Outpatient (CLI) | payer OTHER, SELFPAY ==
[2023-03-14 16:12] LABS: AST(SGOT) 43 U/L (15-37); Alanine Aminotransfer ALT/SGPT 73 U/L (16-61); Albumin, Serum 3.5 g/dL (3.2-5.0); Alkaline Phosphatase 110 U/L (45-117); Bilirubin, Direct 0.08 mg/dL (0.00-0.30); Globulin 4.2 g/dL (2.2-4.2); Protein, Total 7.7 g/dL (6.4-8.2)
== END | disposition home or self-care (01) ==
LOC: LAB 14:46
PROVIDERS: PCP Family Medicine; Visit Provider Registered Nurse
DX: Z79.899 Other long term (current) drug therapy (principal); F31.9 Bipolar disorder, unspecified
CPT/HCPCS: 36415; 80076; 82140

== ENCOUNTER → 2024-03-04 | Outpatient (CLI) | payer OTHER, SELFPAY ==
[2024-03-04 14:31] LABS: Valproic Acid (Depakene) Level 22 ug/mL (50-100)
[2024-03-04 14:34] LABS: ALB/GLOB Ratio 0.9 RATIO (0.9-2.4); AST(SGOT) 41 U/L (15-37); Alanine Aminotransfer ALT/SGPT 74 U/L (16-61); Albumin, Serum 3.5 g/dL (3.2-5.0); Alkaline Phosphatase 95 U/L (45-117); Anion Gap 4 (5-15); BUN 16 mg/dL (7-18); Calcium,Total 9.3 mg/dL (8.5-10.1); Chloride 105 mmol/L (98-107); Creatinine, Serum 0.94 mg/dL (0.70-1.30); EST Glomerular Filtration Rate 97 mL/min (>60); Est Glom Filt Rate - Afr Amer 117 mL/min (>60); Glucose 110 mg/dL (74-106); Potassium 3.9 mmol/L (3.5-5.1); Protein, Total 7.5 g/dL (6.4-8.2); Sodium Level 134 mmol/L (136-145)
== END | disposition home or self-care (01) ==
LOC: LAB 13:42
PROVIDERS: PCP Family Medicine; Referring Provider Registered Nurse; Visit Provider Registered Nurse
DX: F31.9 Bipolar disorder, unspecified (principal); Z79.899 Other long term (current) drug therapy
CPT/HCPCS: 36415; 80053; 80164; 82140

== ENCOUNTER → 2025-02-16 | Outpatient (CLI) | payer OTHER, SELFPAY ==
[2025-02-16 15:55] LABS: Absolute Lymphocyte Count 3.61 X10^3/uL (0.83-4.51); Absolute Neutrophil Count 3.9 X10^3/uL (2.0-7.7); Basophil# 0.05 X10^3/uL; Basophil% 0.6 % (0-1); Eosinophil# 0.12 X10^3/uL; Eosinophils% 1.4 % (0-5); Hematocrit 46.2 % (40-54); Hemoglobin 15.6 g/dL (13.0-16.5); Lymphocyte # 3.61 X10^3/ul (0.83-4.51); Lymphocyte % 42.9 % (19-41); Mean Corp Hgb Conc 33.8 g/dL (32-36); Mean Corpuscular Volume 91.8 fL (80-94); Mean Platelet Vol. 10.7 fl (6.2-12.0); Monocyte% 8.3 % (0-10); NRBC Flagged by Analyzer 0 % (0-5); Neutrophil # 3.91 X10^3/uL (2.7-7.7); Neutrophil % 46.4 % (47-70); Platelet Count 274 K/mm3 (150-450); RBC Distribution Width CV 12.5 % (11.6-14.6); RBC Distribution Width SD 42.3 fl (35.1-43.9); Red Blood Count 5.03 M/mm3 (4.6-6.2); White Blood Count 8.4 K/mm3 (4.4-11.0)
[2025-02-16 22:48] LABS: ALB/GLOB Ratio 1.3 RATIO (0.9-2.4); AST(SGOT) 58 U/L (<=37); Alanine Aminotransfer ALT/SGPT 85 U/L (<=46); Albumin, Serum 4.2 g/dL (3.5-5.0); Alkaline Phosphatase 94 U/L (40-129); Anion Gap 11 (5-15); BUN 14 mg/dL (4-19); BUN/Creat Ratio 15.7 RATIO (10-20); Calcium,Total 9.5 mg/dL (7.6-11.0); Carbon Dioxide 23.4 mmol/L (21.0-32.0); Chloride 102 mmol/L (98-108); Creatinine, Serum 0.87 mg/dL (0.70-1.20); EST Glomerular Filtration Rate 115 (>60); Globulin 3.2 g/dL (2.2-4.2); Glucose 104 mg/dL (70-99); Protein, Total 7.4 g/dL (5.9-8.4); Sodium Level 137 mmol/L (133-145); Total Bilirubin 0.34 mg/dL (0.00-1.30)
== END | disposition home or self-care (01) ==
LOC: LAB 15:07
PROVIDERS: PCP Family Medicine; Referring Provider Registered Nurse; Visit Provider Registered Nurse
DX: F31.9 Bipolar disorder, unspecified (principal); Z79.899 Other long term (current) drug therapy
CPT/HCPCS: 36415; 80053; 85025

== ENCOUNTER → 2025-06-03 | Outpatient (CLI) | payer OTHER, SELFPAY ==
[2025-06-03 17:24] LABS: AST(SGOT) 72 U/L (<=37); Alanine Aminotransfer ALT/SGPT 111 U/L (<=46); Albumin, Serum 4.4 g/dL (3.5-5.0); Alkaline Phosphatase 94 U/L (40-129); Bilirubin, Direct 0.13 mg/dL (0.00-0.30); Globulin 3.1 g/dL (2.2-4.2)
[2025-06-03 17:29] LABS: Valproic Acid (Depakene) Level 58 ug/mL (50-100)
== END | disposition home or self-care (01) ==
LOC: LAB 16:08
PROVIDERS: PCP Family Medicine; Referring Provider Registered Nurse; Visit Provider Registered Nurse
DX: Z79.899 Other long term (current) drug therapy (principal); Z51.81 Encounter for therapeutic drug level monitoring
CPT/HCPCS: 36415; 80076; 80164